=== PATIENT | female | born 1955 | race Caucasian/White ===

== ENCOUNTER 2016-04-24 13:42 | Day surgery (SDC) | payer MEDICARE, BC ==
[2016-03-19 11:26] VITALS: BMI 28.5
[2016-04-24] VITALS (9 sets, daily range): BP systolic 125–198; BP diastolic 39–95; PULSE 80–106; RESP 12–22; Ht 157.5 cm; Wt 68.0 kg
[~2016-04-24] VITALS: Ht 157.5 cm; Wt 68.0 kg
[~2016-04-24 13:42] MED LIST: APR50 PO; ASPI325T4 PO; BIMA2.5D BOTH EYES; CLOP75TA27 PO; HUM100VI14 SC; HYDR-762 PO; NIFE30TA60 PO; OMEP20CA16 PO; SERT50TA6 PO; SIMV40TA2 PO
[2016-04-24] MEDS ORDERED: OMEP40CA6 PO (14:22)
[2016-04-24] MEDS ORDERED: NOVMIX SC (14:23)
[2016-04-24] MEDS ORDERED: POLYMYXIN/BACITRACIN 1L IRRIG ONE (15:35)
[2016-04-24] MEDS ORDERED: BUPIVACAINE 0.5% (SDV) 30 ML INJ ONE (15:35)
[2016-04-24 15:36] LABS: INR 1.05; PROTIME 13.7 Sec (12.2-14.2); PT RATIO 1.1
[2016-04-24 15:39] LABS: BASOPHILS % 0.5 % (0.0-2.0); EOSINOPHILS # 0.1 10^3/ul (0.0-0.5); EOSINOPHILS % 2.4 % (0.0-7.0); HEMATOCRIT 35.6 % (37.0-47.0); HEMOGLOBIN 11.8 g/dl (12.0-16.0); LYMPHOCYTES # 1.1 10^3/ul (0.8-2.9); LYMPHOCYTES % 27.6 % (15.0-51.0); MEAN CORPUSCULAR HEMOGLOBIN 32.2 pg (29.0-33.0); MEAN CORPUSCULAR HGB CONC 33.1 g/dl (32.0-37.0); MEAN CORPUSCULAR VOLUME 97.2 fl (82.0-101.0); MEAN PLATELET VOLUME 7.2 fl (7.4-10.4); MONOCYTE # 0.5 10^3/ul (0.3-0.9); NEUTROPHIL # 2.4 10^3/ul (1.6-7.5); NEUTROPHILS % 58.5 % (39.0-77.0); PLATELET COUNT 207 10^3/UL (140-440); RED BLOOD COUNT 3.67 10^6/ul (4.20-5.40); RED CELL DISTRIBUTION WIDTH 19.7 % (11.5-14.5); UNCORRECTED WBC 4.2 10^3/ul (4.8-10.8); WHITE BLOOD COUNT 4.2 10^3/ul (4.8-10.8)
[2016-04-24 15:52] LABS: CREATININE 3.21 mg/dl (0.44-1.00); POTASSIUM 4.8 mmol/L (3.5-5.1)
[2016-04-24 15:53] LABS: CALCIUM 9.4 mg/dl (8.4-10.2)
--- NOTE | 2016-04-24 15:53 | HPN ---
Date/Time of Note Date/Time of Note DATE: 04/24/16 TIME: 15:53 Interval H&P Admission Note Pt. seen H&P reviewed: No system changes BEV YAÑEZ DPM Apr 24, 2016 15:53
[2016-04-24 15:58] LABS: CONDITION 1; LH ANALYZER COMMENTS 1
[2016-04-24] MEDS ORDERED: FENTAnyl 50 MCG/ML VIAL ONE (16:05)
[2016-04-24 16:06] LABS: PARTIAL THROMBOPLASTIN TIME 69.6 Sec (25.0-35.0)
[2016-04-24] MEDS ORDERED: ETOMIDATE 20 MG INJ ONE (16:12)
[2016-04-24] MEDS ORDERED: LABETALOL HCL 20MG INJ IV PRN (17:30)
[2016-04-24] MEDS ORDERED: DIPHENHYDRAMINE 50 MG INJ IV PRN (17:30)
[2016-04-24] MEDS ORDERED: FENTAnyl 50 MCG/ML VIAL IV PRN (17:30)
[2016-04-24] MEDS ORDERED: hydrALAzine 20 MG INJ IV PRN (17:30)
[2016-04-24] MEDS ORDERED: ONDANSETRON 4 MG INJ IV PRN (17:30)
[2016-04-24] MEDS ORDERED: MIDAZOLAM 1 MG/ML 2 ML INJ ONE (18:53)
[2016-04-24] MEDS ORDERED: ROCURONIUM 50 MG INJ ONE (18:54)
[2016-04-24] MEDS ORDERED: LIDOCAINE 100 MG SYRINGE ONE (18:54)
[2016-04-24] MEDS ORDERED: CEFAZOLIN 1 GM INJ ONE (18:54)
[2016-04-24] MEDS ORDERED: ONDANSETRON 4 MG INJ ONE (18:54)
--- NOTE | 2016-04-24 20:15 | RADRPT ---
AMENDMENT: 04/24/2016 8:17:54 PM Tj Yan MD ADDENDUM: COMPARISON: Left ankle series dated 10/04/2014. PROCEDURE: XR Ankle. CLINICAL INDICATION: Surgical resection of the talus with fixation at the ankle and the hind foot TECHNIQUE: 3 views of the left ankle were performed. COMPARISON: None. FINDINGS: Interval surgical resection of the talus. New pin and cannulated screw fixation traverses the calca neus and tibia. There is a new splint in place. Prior resection of distal left fibula is again seen. IMPRESSION: Intervals with surgical resection of the talus, with new internal metallic fixation. RPTAT: [facility]U Physician Blanca Date Time Electronically viewed and signed by Physician Blanca on 04/24/2016 20:17 RS/
[2016-04-24] MEDS ORDERED: HYDROCODONE/APAP (5/325) TAB ONE ×2 (20:17→20:19)
--- NOTE | 2016-04-24 20:17 | RADRPT ---
PROCEDURE: XR Ankle. CLINICAL INDICATION: Surgical resection of the talus with fixation at the ankle and the hind foot TECHNIQUE: 3 views of the left foot were performed. COMPARISON: Left foot series dated 10/05/2014. FINDINGS: Interval surgical resection of the talus. New pin and cannulated screw fixation traverses the calca neus and tibia. Age indeterminate fracture at the distal second metatarsal metaphysis. This is new over interval si nce 10/04/2014. There is a new splint in place. Prior resection of distal left fibula is again seen. IMPRESSION: Intervals with surgical resection of the talus, with new internal metallic fixation. RPTAT: UU Physician Blanca Date Time Electronically viewed and signed by Physician Blanca on 04/24/2016 20:17 RS/
[2016-04-24] MEDS ORDERED: HYDROCODONE/APAP (5/325) TAB PO ONE (20:30)
--- NOTE | 2016-04-24 23:22 | RADRPT ---
PROCEDURE: Intraoperative imaging of the left ankle with fluoroscopy. CLINICAL INDICATION: Left ankle pain. Intraoperative. TECHNIQUE: Four images of the left ankle were obtained in the operating room with an image intensi fier. No radiologist was in attendance. 47.1 seconds of fluoroscopy time was used. COMPARISON: No prior study is available for comparison. FINDINGS: Images demonstrate surgical instruments overlying the left ankle. IMPRESSION: 1. Intraoperative imaging of the left ankle. RPTAT: QQ .Roberto Carlos Chaudhry MD, MD Date Time Electronically viewed and signed by .Roberto Carlos Chaudhry MD, MD on 04/24/2016 23:21 .R/
--- NOTE | 2016-04-29 06:16 | OPR ---
DATE OF OPERATION: 04/24/2016 SURGEON: Rosas Martinez DPM COMMUNICATIONS DEPARTMENT HEAD SURGEON: Jer Campbell DPM ANESTHESIOLOGIST: Dr. French ANESTHESIA: General. PREOPERATIVE DIAGNOSIS: Painful nonunion left subtalar joint. POSTOPERATIVE DIAGNOSES: 1. Painful nonunion left subtalar joint. 2. Calcaneal valgus, left foot. PROCEDURES PERFORMED: 1. Subtalor joint arthrodesis, left ankle. 2. Mid tarsal osteotomy, left foot. DESCRIPTION OF PROCEDURE: The patient was brought into the operating room, placed in a secure supin e position. Cardiac monitoring and general anesthesia were utilized for this case. A thigh tourniq uet was also placed for hemostasis upon conducting anesthesia, the left foot and ankle were prepped and draped in the usual sterile manner. The thigh tourniquet was inflated to 325 mmHg. Procedure # 1 was then performed, subtalar joint arthrodesis, left ankle. A 5 cm incision was placed from the p osterior fibula extending distally to the calcaneal cuboid joint. The incision was deepened. Super ficial bleeders were cauterized and bovied as necessary. Extensive scar tissue was noted along the incision site. The scar tissue adhesions were freed from the peroneal tendons. Care was taken to p reserve and protect the sural nerve which was identified. The peroneal tendons were retracted poste riorly and plantarly. The rongeur was used to remove the extensive scar tissue along the posterior facet of the subtalar joint. Once the subtalar joint was identified, a Rhodell elevator with Hloden elev ator were utilized to open the subtalar joint which was found to have considerable motion. The subt alar joint was rongeured with necrotic and fibrinous tissue within the posterior and middle facets o f the subtalar joint. Curettage was also utilized to remove sclerotic bone. At this point, a sagit melani saw was utilized to debride the subglottic bone down to good healthy bleeding bone. The opposin g edges of the subtalar joint were reapproximated under intraoperative fluoroscopy using 0.062 K-wir es, satisfactory position and alignment were noted. A 5.0 x 80 mm cannulated headless screw was uti lized under guided intra fluoroscopy. A second point of fixation was also placed from plantar calca neus superiorly through the talus. Second screw measured to be 5.0 x 85 mm Stella cannulated headl ess screw. A third point of fixation was also utilized from the tibia superiorly, medially, and goi ng plantarly direction through the talus. The screw measured 38 x 5.0 mm cannulated [place] screw. Additional fixation was appropriate to reduce motion and add stability where a Steinmann pin was ut ilized from the plantar calcaneus superiorly through the tibia. AP, lateral ankle views revealed sa tisfactory position and alignment of the subtalar joint. Next, the heel valgus position was correct ed with osteotomy through the calcaneal cuboid and talonavicular joints. The cartilaginous surfaces were denuded, and the hindfoot was brought into a rectus position and the Steinmann pin was utilize d to maintain this rectus position of the hindfoot with a slight valgus position of approximately 2 degrees. Satisfactory alignment again was noted with the intraoperative fluoroscopy. The thigh pne umatic tourniquet was deflated at this point. All bleeders were cauterized and bovied. The lateral incision was closed with 3-0 Vicryl simple interrupted sutures along with 4-0 Vicryl simple interru pted sutures. The subcutaneous tissue was closed with 4-0 Vicryl simple interrupted sutures. The s kin edges were reapproximated with 4-0 nylon horizontal mattress stitches. The patient tolerated th e above procedure well. A below-knee fiberglass cast was applied intraoperatively. The patient lef t the OR without complications. The patient will follow up to the office in 1 week postoperatively. Dictated By: ROSAS TAVERAS Conf#: [id number] DID#: [id number]
== END 2016-04-24 20:41 | disposition home or self-care (01) ==
LOC: SDS 13:42
PROVIDERS: ATTEND Podiatrist Primary Podiatric Medicine
DX: T84.119A Breakdown (mechanical) of internal fixation device of unspecified bone of limb, initial encounter (principal); Y79.3 Surgical instruments, materials and orthopedic devices (including sutures) associated with adverse incidents; Y92.009 Unspecified place in unspecified non-institutional (private) residence as the place of occurrence of the external cause; Z87.891 Personal history of nicotine dependence; I12.0 Hypertensive chronic kidney disease with stage 5 chronic kidney disease or end stage renal disease; E11.22 Type 2 diabetes mellitus with diabetic chronic kidney disease; N18.6 End stage renal disease; Z99.2 Dependence on renal dialysis; E78.5 Hyperlipidemia, unspecified; M21.072 Valgus deformity, not elsewhere classified, left ankle; M25.372 Other instability, left ankle
CPT/HCPCS: 28304; 28725; 73600; 73610; 73630; 80048; 82962; 83036; 85025; 85610; 85730; J2001; J2250; J2405; J3010; J0360; J0690

== ENCOUNTER 2016-07-24 18:33 | Inpatient (IN) | payer MEDICARE, BC ==
[~2016-07-24] VITALS: Ht 152.4 cm; Wt 73.8 kg
[~2016-07-24 18:33] MED LIST changes: -APR50 PO; -BIMA2.5D BOTH EYES; -HUM100VI14 SC; -HYDR-762 PO; +NOVMIX SC; -OMEP20CA16 PO; +OMEP40CA6 PO
--- NOTE | 2016-07-24 21:23 | ERA ---
ER Documentation Chief Complaint Date/Time DATE: 07/24/16 TIME: 21:23 Chief Complaint diabetic left foot HPI 61-year-old female with history of diabetes mellitus type 2, end-stage renal disease on dialysis M/W/F, coronary artery disease status post CABG, CVA, status post left foot subtalar arthrodesis and midtarsal osteotomy referred to the ED by Dr. Martinez for evaluation of increasing moderate, pressure-like and crampy, nonradiating pain with swelling, redness and discharge to the left foot. Denies chest pain or palpitation. No abdominal pain, nausea or vomiting. No headache or neck pain. Denies fevers, chills, anorexia or night sweats. ROS All systems reviewed and are negative except as per history of present illness. Medications Home Meds Reported Medications Insulin Aspart (Novolog Mix (70/30)) 100 Units/Ml Soln, 0 SC BID , VIAL 10 UNITS QAM, 6 UNITS QPM 04/24/16 Omeprazole* (Omeprazole*) 40 Mg Capsule.dr, 40 MG PO DAILY, #30 CAP 04/24/16 Nifedipine* (Nifedipine ER*) 30 Mg Tablet.sa, 30 MG PO BID, TAB.SA 06/10/15 Clopidogrel Bisulfate (Clopidogrel) 75 Mg Tablet, 75 MG PO DAILY 09/21/12 Aspirin* (Aspirin*) 325 Mg Tablet, 325 MG PO DAILY 06/12/11 Simvastatin* (Zocor*) 40 Mg Tablet, 40 MG PO QHS 10/04/10 Discontinued Reported Medications Sertraline Hcl* (Sertraline Hcl*) 50 Mg Tablet, 50 MG PO QAM, TAB 08/09/14 Allergies Allergies: Coded Allergies: morphine (Verified Allergy, Intermediate, 07/24/16) PMhx/Soc Reviewed History of Surgery: Yes (LT AND RT PERMACATH, LT AV-SHUNT, LT LEG SX, ) Anesthesia Reaction: No Hx Neurological Disorder: Yes (S/P STROKE) Hx Respiratory Disorders: No Hx Cardiac Disorders: Yes (CABG) Hx Psychiatric Problems: No Hx Miscellaneous Medical Probl: Yes (CRF IN HD) Hx Alcohol Use: No Hx Substance Use: No Hx Tobacco Use: No FmHx No stroke or cancer. Not relevant to presenting complaint. Physical Exam Vitals Vital Signs Date Time Temp Pulse Resp B/P Pulse Ox O2 Delivery O2 Flow Rate FiO2 5/4/17 06:52 71 22 185/82 97 Room Air 07/25/16 05:45 64 21 196/67 97 Room Air 07/25/16 04:24 98.5 70 21 195/72 100 Room Air 07/25/16 00:32 70 23 158/56 96 Room Air 07/24/16 22:34 78 15 188/86 100 Room Air 07/24/16 21:15 99.7 77 15 189/70 100 Room Air 07/24/16 18:40 97.8 76 20 199/117 98 Physical Exam Const: Alert, moderate distress due to pain Head: Atraumatic Eyes: Normal Conjunctiva ENT: Normal External Ears, Nose and Mouth. Neck: Full range of motion. Nontender. No JVD. Resp: Clear to auscultation bilaterally Cardio: Regular rate and rhythm, no murmurs Chest Wall: Rusty catheter left chest wall without erythema, induration or drainage. Abd: Soft, non tender, non distended. Normal bowel sounds Skin: No petechiae or rashes Back: No midline or flank tenderness Ext: Left foot: Dorsal erythema, hematoma and tenderness. No subcutaneous crepitus. Neur: Awake and alert, Left sided weakness at baseline. Psych: Normal Mood and Affect Result Diagram: 07/24/16212907/24/162129 Results 24 hrs Laboratory Tests Test 07/24/16 21:30 White Blood Count 4.710^3/ul Red Blood Count 2.7110^6/ul Hemoglobin 9.2g/dl Hematocrit 28.8% Mean Corpuscular Volume 106.3fl Mean Corpuscular Hemoglobin 33.9pg Mean Corpuscular Hemoglobin Concent 31.9g/dl Red Cell Distribution Width 12.7% Platelet Count 42678^3/UL Mean Platelet Volume 9.5fl Neutrophils % 73.0% Band Neutrophils % 2.0% Lymphocytes % 11.0% Monocytes % 9.0% Eosinophils % 5.0% Erythrocyte Sedimentation Rate 110mm/Hr Sodium Level 131mmol/L Potassium Level 4.2mmol/L Chloride Level 92mmol/L Carbon Dioxide Level 30mmol/L Anion Gap 13 Blood Urea Nitrogen 29mg/dl Creatinine 3.14mg/dl Glucose Level 262mg/dl Calcium Level 8.9mg/dl Total Bilirubin 0.0mg/dl Direct Bilirubin 0.00mg/dl Indirect Bilirubin 0.0mg/dl Aspartate Amino Transf (AST/SGOT) 22IU/L Alanine Aminotransferase (ALT/SGPT) 30IU/L Alkaline Phosphatase 134IU/L Total Protein 7.6g/dl Albumin 3.5g/dl Globulin 4.10g/dl Albumin/Globulin Ratio 0.85 Current Medications Medications (Trade) Dose Ordered Sig/Maricruz Route PRN Reason Start Time Stop Time Status Last Admin Dose Admin Piperacillin Sod/ Tazobactam Sod 100 ml @ 200 mls/hr ONCE ONCE IVPB 07/24/16 21:30 07/24/16 21:59 DC 07/24/16 21:49 Vancomycin HCl (Vancocin) 250 ml @ 125 mls/hr ONCE IVPB 07/24/16 21:30 07/24/16 23:29 DC 07/24/16 22:30 Ascorbic Acid (Vitamin C) 1,000 mg ONCE ONCE PO 07/24/16 21:30 07/24/16 21:34 DC 07/24/16 22:15 Acetaminophen/ Hydrocodone Bitart ([place] (5/325)) 1 tab ONCE ONCE PO 07/24/16 21:30 07/24/16 21:35 DC Ondansetron HCl (Zofran Inj) 4 mg ONCE STAT IV 07/24/16 21:32 07/24/16 21:34 DC Ondansetron HCl (Zofran Inj) 4 mg BRIDGE ORDER PRN IV NAUSEA AND/OR VOMITING 07/25/16 00:00 07/25/16 23:59 Acetaminophen (Tylenol Tab) 650 mg ER BRIDGE PRN PO MILD PAIN/FEVER 07/25/16 00:00 07/25/16 23:59 Procedures/MDM DOCUMENTS REVIEWED: ED nurse[, EMS, [facility] care, Prior ED, Prior records, Dialysis, Clinic notes, Physician referral] ED COURSE: [place]. IV Zosyn and vancomycin after cultures. MEDICAL DECISION MAKIN-year-old female with history of diabetes mellitus type 2, end-stage renal disease on dialysis M/W/F, coronary artery disease status post CABG, CVA, status post left foot subtalar arthrodesis and midtarsal osteotomy referred to the ED by Dr. Martinez for evaluation pain and swelling to left foot. Patient presents with postop, diabetic foot infection. Possible osteomyelitis. Patient seen in the ED by podiatry, Dr. Campbell. Abscess/ hematoma drained and dressing applied. IV antibiotics given after cultures. Hyperglycemia without DKA or HONK. No hyperkalemia or volume overload. No criteria for systemic inflammatory response syndrome or sepsis. Patient will be admitted to [facility] for further intravenous antibiotics, evaluation and management. Counseled patient and family regarding diagnosis, diagnostic results and plan for admission. CALLS/CONSULTS: Dr. Campbell, Recommends intravenous antibiotics and admission to Dr. Sheth CALLS/CONSULTS: Dr. Sheth. PATIENT CARE TRANSITIONED: Time: 23:40, Dr. Sheth. Departure Diagnosis: Primary Impression: Left foot infection Additional Impressions: Hyperglycemia due to type 2 diabetes mellitus Qualified Code: E11.65 - Type 2 diabetes mellitus with hyperglycemia, unspecified intermediate designer insulin use status End stage renal disease on dialysis Coronary artery disease Qualified Code: I25.10 - Coronary artery disease involving [place] heart without angina pectoris, unspecified vessel or lesion type History of coronary artery bypass graft Condition: Serious EDDY MCCRARY MD July 24, 2016 21:23
[2016-07-24] MEDS ORDERED: VANCOMYCIN 1 GM (PMX) 250 ML IVPB SCH (21:30)
[2016-07-24] MEDS ORDERED: HYDROCODONE/APAP (5/325) TAB PO ONE (21:30)
[2016-07-24] MEDS ORDERED: PIPER-TAZO 3.375 GM IV (PMX) 100 ML IVPB ONE (21:30)
[2016-07-24] MEDS ORDERED: ASCORBIC ACID 500 MG TAB PO ONE (21:30)
[2016-07-24] MEDS ORDERED: ONDANSETRON 4 MG INJ IV STA (21:32)
[2016-07-24 21:49] LABS: ADD SCAN DIFF NO
[2016-07-24 21:53] LABS: ABNORMAL IP MESSAGE 1; HEMATOCRIT 28.8 % (37.0-47.0); HEMOGLOBIN 9.2 g/dl (12.0-16.0); MEAN CORPUSCULAR HEMOGLOBIN 33.9 pg (29.0-33.0); MEAN CORPUSCULAR HGB CONC 31.9 g/dl (32.0-37.0); MEAN CORPUSCULAR VOLUME 106.3 fl (82.0-101.0); MEAN PLATELET VOLUME 9.5 fl (7.4-10.4); PLATELET COUNT 255 10^3/UL (140-415); RED BLOOD COUNT 2.71 10^6/ul (4.20-5.40); RED CELL DISTRIBUTION WIDTH 12.7 % (11.5-14.5); WHITE BLOOD COUNT 4.7 10^3/ul (4.8-10.8)
[2016-07-24 22:18] LABS: ALBUMIN 3.5 g/dl (3.3-4.9); ALBUMIN/GLOBULIN RATIO 0.85; CALCIUM 8.9 mg/dl (8.4-10.2); CREATININE 3.14 mg/dl (0.44-1.00); POTASSIUM 4.2 mmol/L (3.5-5.1); TOTAL PROTEIN 7.6 g/dl (6.1-8.1)
--- NOTE | 2016-07-24 22:50 | RADRPT ---
PROCEDURE: XR Foot. CLINICAL INDICATION: Left foot pain TECHNIQUE: 2 views of the left foot are available for review. COMPARISON: Left foot x-ray dated 04/24/2016 FINDINGS: Surgical resection of the talar bone is identified. Left ankle surgical arthrodesis has been perfor med with multiple pins and cannulated screws in place traversing the distal tibia and the calcaneal bone. Diffuse bony demineralization is seen. Disorganization and chronic change of the left ankle j oint is identified. Poor fusion at the surgical arthrodesis site is seen. Increased lucency at the a rthrodesis site is present. Therefore, underlying infection may be present. Surrounding soft tissue cast is seen around the left foot. This limits optimum evaluation of the underlying osseous struct ures. Underlying infection is difficult to exclude on the basis of this study. The appearances are similar when compared to the prior study. IMPRESSION: 1. Status post previous talar bone resection. 2. Status post left ankle surgical arthrodesis multiple pins and a cannulated screws in place. Andres earances are grossly stable over time. 3. Disorganization and chronic change of the left ankle region is identified with poor fusion of th e surgical arthrodesis and increased lucency. Infection may be present and is a definite considerat ion. 4. Diffuse bony demineralization of the osseous structures of the left foot, worse since the previo us study. 5. Surrounding soft tissue cast which limits optimum evaluation of the left foot on the AP view. RPTAT: PP .Chris Kent MD, Date Time Electronically viewed and signed by .Chris Kent MD, on 07/24/2016 22:50 .B/
--- NOTE | 2016-07-24 22:51 | RADRPT ---
PROCEDURE: XR Ankle. CLINICAL INDICATION: Foot infection. TECHNIQUE: Three views of the left ankle. COMPARISON: 04/24/2016 FINDINGS: Splint material obscures fine osseous details. The patient is status post distal fibular osteotomy, removal of the talus, and fusion of the tibia and calcaneus utilizing a pin and three screws. Ther e is an irregular appearance of the distal tibia and superior calcaneus, not significantly changed. Old screw tracks are seen in the distal tibia. IMPRESSION: 1. Status post distal fibular osteotomy, removal of the talus, and fusion of the tibia and calcaneu s. 2. Irregular appearance of the distal tibia and superior calcaneus, not significantly changed. Ost eomyelitis cannot be excluded in these regions. RPTAT: HTAR .Eliseo Weldon MD, Date Time Electronically viewed and signed by .Eliseo Weldon MD, on 07/24/2016 22:50 .R/
--- NOTE | 2016-07-25 03:25 | CONS ---
DATE OF ADMISSION: 07/24/2016 DATE OF CONSULTATION: 07/24/2016 CHIEF COMPLAINT: Left ankle pain, swelling and cellulitis. REFERRING PHYSICIAN: Dr. Rosas Martinez. HISTORY OF PRESENT ILLNESS: This is a 61-year-old female seen in the clinic with an infection from left ankle. She has a draining wound on the anterior ankle, relates pain and currently afebrile. T he patient had surgery of the left ankle on 04/24/2016. The patient had cultures obtained but resul ts are not available for review. The patient has history of Charcot deformity and diabetes with per ipheral neuropathy. PAST MEDICAL HISTORY: Includes diabetes type 2, history of tobacco use, hypertension, GERD, hyperli pidemia, coronary artery disease. PAST SURGICAL HISTORY: Fistula of left arm, dialysis access right upper chest, open heart surgery, CABG, multiple left AV fistula graft with thrombosis. SOCIAL HISTORY: History of tobacco use 15 years, 2 packs per day, stopped in 1984. FAMILY HISTORY: Positive for hypertension and diabetes. PHYSICAL EXAMINATION: VITAL SIGNS: Temperature 97.8, pulse 76, respiratory rate 20, blood pressure 199/72, pulse ox is 98 %. GENERAL: Mild anxiety due to pain. HEAD: Head is normocephalic, atraumatic. LUNGS: Regular respiration. EXTREMITIES: Left ankle with a posterior splint. Dressings removed. There is mild to moderate vilma ma. There is ulceration at the anterior ankle measuring 3 x 1 cm, mild serous drainage. The anteri or medial ankle there is a small puncture wound and there is sanguineous exudate draining from this area. There is pain with palpation. There is mild tibiotalar motion present. No signs of decubitu s pressure sore. Patient with warm foot and ankle. There is 2+ DP pulse, 2+ popliteal pulse. Cell ulitis present to the anterior medial lower leg. IMAGING STUDIES: Radiographs pending. LABORATORY DATA: Pending. ASSESSMENT: 1. Left ankle cellulitis. 2. Hematoma 3. Charcot with prior tibiotalar arthrodesis. 4. Diabetes with neuropathy. PLAN: The patient is seen and evaluated discussed with Dr. Coyne. Plan admission. The patient w ill be initiated on vancomycin and Zosyn. We will need surgical incision and drainage. Consultatio n with Dr. Carrion. He has been notified and the patient was wrapped and placed in a posterior splin t, nonweightbearing. X-rays and labs pending. We will coordinate with the operating room for janee ceballos of surgery. Recommend tight glycemic control in the interim, may require dialysis either tomorrow or Friday. Dictated By: MALIK JIMENEZ/LUZ Conf#: [id number] DID#: [id number]
--- NOTE | 2016-07-25 12:29 | CONS ---
DATE OF ADMISSION: 07/24/2016 DATE OF CONSULTATION: 07/25/2016 INFECTIOUS DISEASE CONSULTATION. REASON FOR CONSULTATION: Antibiotic management. HISTORY OF PRESENT ILLNESS: Emily Ferrari is a 61-year-old female who comes in with left ankl e pain, swelling and cellulitis. The patient's problems include: 1. Adult-onset diabetes mellitus. 2. Hypertension. 3. GERD. 4. Hyperlipidemia. 5. Coronary artery disease. 6. End-stage renal disease. 7. Fistula of left arm; dialysis access right upper chest, also multiple left AV fistula grafts wi th thrombosis. 8. Coronary artery bypass graft. 9. History of tobacco use 15 years, 2 packs per day, stopped in 1984. 10. On admission, her white count is 4.7, H and H 9.2 and 28.8, platelet count 255,000. BUN and cr eatinine are 29/3.14. X-ray of the foot shows status post previous talar bone resection. 11. Status post left ankle surgical arthrodesis multiple pins and cannulated screw in place. Appea rances are grossly stable over time. Disorganization and chronic changes of left ankle region is i dentified with poor fusion at the surgical arthrodesis and increased lucency. Infection may be pres ent. There was a definite consideration. 12. Diffuse bony demineralization of the osseous structures of the left foot, worse than previous s tudy. Surrounding soft tissue cast, which limits optimal evaluation of the left foot. PAST MEDICAL HISTORY: Operations as outlined. FAMILY HISTORY: Noncontributory. Positive for hypertension, diabetes. SOCIAL HISTORY: She has a history of 15 years of tobacco use, 2 packs a day, stopped in 1984. ALLERGIES: NONE TO PENICILLIN, SULFA OR FOODS. MEDICATIONS: Per chart. REVIEW OF SYSTEMS: As per HPI. PHYSICAL EXAMINATION: GENERAL: The patient is a well-developed, well-nourished female with mild anxiety due to pain, in n o acute distress. VITAL SIGNS: Stable. She is afebrile. SKIN: Without generalized rash. HEENT: Within normal limits. NECK: Supple. LYMPH NODES: None palpable. CHEST: Decreased breath sounds at the bases. HEART: Without murmur or gallop. ABDOMEN: Soft, nontender, without organosplenomegaly or masses. EXTREMITIES: She has a posterior splint. She has mild to moderate edema. She has ulceration at th e anterior ankle, measuring about 1 cm, mild serous drainage. The anterior medial ankle has a punct ure wound. There is bloody exudate dripping from this area. There is pain on palpation. No decub itus ulcer and the foot is warm. Pulses are 2+. RECTAL AND GENITAL: Deferred. NEUROLOGIC: No focal neurological abnormality. IMPRESSION AND PLAN: The patient has left ankle cellulitis. She also has a Charcot joint with tibi otalar arthrodesis and diabetes with neuropathy. She is being followed by Dr. Chandu Campbell, podiatry , and she was started on vancomycin and Zosyn. She will need surgical incision and drainage. I lalo l dictate my findings to Dr. Campbell. Dictated By: SONIA HUGHES MD, JD/LUZ Conf#: [id number] DID#: [id number]
[2016-07-25] MEDS ORDERED: ZOLPIDEM 5 MG TAB PO PRN (15:00)
[2016-07-25] MEDS ORDERED: DOCUSATE SODIUM 100 MG CAP PO PRN (15:00)
[2016-07-25] MEDS ORDERED: ONDANSETRON 4 MG INJ IV PRN ×2 (15:00)
[2016-07-25] MEDS ORDERED: NACL 0.9% 3 ML SYG IV SCH (15:00)
[2016-07-25] MEDS ORDERED: MAGNESIUM HYDROXIDE 30ML CUP PO PRN (15:00)
[2016-07-25] MEDS ORDERED: ACETAMINOPHEN 325 MG TAB PO PRN ×2 (15:00)
--- NOTE | 2016-07-25 15:38 | HP ---
DATE OF ADMISSION: 07/24/2016 CHIEF COMPLAINT AND HISTORY OF PRESENT ILLNESS: The patient is a 61-year-old female who has history of diabetes mellitus type 2 for 10+ years with end-stage renal disease on hemodialysis Friday, Friday and Friday, prior history of coronary artery disease, status post coronary artery bypass surgery, prior history of CVA, status post left foot subtalar arthrodesis and metatarsal osteotomy who presents with increasing pain, swelling and discharge from the left foot and patient was evaluated in the emergency room and was admitted for evaluation and treatment of left ankle cellulitis. REVIEW OF SYSTEMS: The patient is unable to provide any cogent history at this time. SOCIAL HISTORY: The patient has had prior history of smoking 2 packs a day for at least 15 years. MEDICATIONS: Include: 1. NovoLog mix 70/30 10 units q.a.m., 6 units q.p.m. 2. Omeprazole 40 mg daily. 3. Nifedipine ER 30 mg daily. 4. Clopidogrel 75 mg daily. 5. Aspirin 325 mg p.o. daily. 6. Simvastatin 40 mg p.o. daily. ALLERGIES: MORPHINE. PRIOR SURGERIES: Include status post AV shunt and PermCath placement. There is also history of having had a prior stroke. FAMILY HISTORY: Negative for diabetes, hypertension or cancer. PHYSICAL EXAMINATION: GENERAL: Patient is an average-built female who is awake, alert. VITAL SIGNS: Blood pressure 185/82, respiratory 20 per minute, O2 sats 97%, temperature 98.5. HEENT: Head normocephalic. Moderate pallor without cyanosis. Tongue is coated , dry. NECK: Supple. No thyromegaly, bruits or lymphadenopathy. LUNGS: Clinically clear. HEART: S1, S2 heard with no definite gallops or murmurs. ABDOMEN: Soft, nontender, no hepatosplenomegaly. EXTREMITIES: Moderate edema, left foot which is wrapped. Podiatry evaluation has been done by Dr. Martinez and Dr. Campbell. PELVIC, RECTAL AND BREAST: Deferred at the patient's request. RECTAL AND BREAST: Deferred at patient's request. LABORATORY DATA: Initial WBC count 4.7, hematocrit 28.8, MCV 106.3. Sed rate 110. Sodium 131, potassium 4.2, BUN 29, creatinine 3.14, glucose 262. IMPRESSION: 1. Cellulitis, left ankle, status post tibiotalar arthrodesis, osteomyelitis to be ruled out. 2. Type 2 diabetes mellitus. 3. Hypertension. 4. Hyperlipidemia. 5. Coronary artery disease, status post coronary artery bypass surgery. 6. End-stage renal disease. PLAN: The patient will be admitted to the medical floor. She will be started on vancomycin and Zosyn and will follow recommendations per Dr. 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 Strict control of blood glucose levels. Continue statins, podiatry recommendations per Dr. Campbell and Dr. Martinez. Dictated By: RENE ALBERTS MD SR/NTS Conf#: [id number] DID#: [id number]
[2016-07-25 16:51] LABS: ADD SCAN DIFF NO
[2016-07-25 16:53] LABS: ABNORMAL IP MESSAGE 1; BASOPHILS % 0.4 % (0.0-2.0); EOSINOPHILS # 0.3 10^3/ul (0.0-0.5); EOSINOPHILS % 7.3 % (0.0-7.0); HEMATOCRIT 29.3 % (37.0-47.0); HEMOGLOBIN 9.3 g/dl (12.0-16.0); LYMPHOCYTES # 0.5 10^3/ul (0.8-2.9); LYMPHOCYTES % 10.4 % (15.0-51.0); MEAN CORPUSCULAR HEMOGLOBIN 34.1 pg (29.0-33.0); MEAN CORPUSCULAR HGB CONC 31.7 g/dl (32.0-37.0); MEAN CORPUSCULAR VOLUME 107.3 fl (82.0-101.0); MEAN PLATELET VOLUME 9.3 fl (7.4-10.4); MONOCYTE # 0.4 10^3/ul (0.3-0.9); NEUTROPHIL # 3.2 10^3/ul (1.6-7.5); PLATELET COUNT 257 10^3/UL (140-415); RED BLOOD COUNT 2.73 10^6/ul (4.20-5.40); WHITE BLOOD COUNT 4.6 10^3/ul (4.8-10.8)
[2016-07-25 17:07] LABS: POTASSIUM 3.6 mmol/L (3.5-5.1)
[2016-07-25 17:10] LABS: CALCIUM 8.1 mg/dl (8.4-10.2); CREATININE 3.52 mg/dl (0.44-1.00)
[2016-07-25] MEDS ORDERED: DEXTROSE 50% 50 ML SYRINGE IV PRN ×2 (19:30)
[2016-07-25] MEDS ORDERED: GLUCOSE GEL 15 GRAM TUBE PO PRN ×2 (19:30)
[2016-07-25] MEDS ORDERED: GLUCOSE GEL 15 GRAM TUBE BUCCAL PRN (19:30)
[2016-07-25] MEDS ORDERED: GLUCAGON 1 MG INJ IM PRN (19:30)
[2016-07-25 20:14] VITALS: TEMP 98.9
[2016-07-25] MEDS: INSULIN ASPART [NOVOLOG] 3 ML PEN SC SCH (20:27)
[2016-07-25] MEDS ORDERED: NICARDipine HCL 30 MG CAPSULE PO ONE (22:00)
[2016-07-25] MEDS ORDERED: hydrALAzine 20 MG INJ IV ONE (22:00)
[2016-07-25] MEDS: PIPER-TAZO 2.25 GM (PMX) 50 ML IVPB SCH (22:48)
[2016-07-26] VITALS (19 sets, daily range): BP systolic 99–201; BP diastolic 4–94; PULSE 61–77; RESP 20; Ht 152.4 cm; Wt 73.8 kg
[2016-07-26] MEDS: PANTOPRAZOLE (EC) 40 MG TAB PO SCH (06:53)
[2016-07-26] MEDS: INSULIN ASPART [NOVOLOG] 3 ML PEN SC SCH ×4 (08:00→20:30)
[2016-07-26 08:20] LABS: T3 UPTAKE 48.2 % (23.5-40.5)
[2016-07-26 08:22] LABS: MAGNESIUM 2.1 mg/dl (1.7-2.5); PHOSPHORUS 5.8 mg/dl (2.5-4.9)
[2016-07-26 08:33] LABS: THYROID STIMULATING HORMONE 9.52 MIU/L (0.465-4.680)
[2016-07-26] MEDS: PIPER-TAZO 2.25 GM (PMX) 50 ML IVPB SCH ×3 (09:08→23:50)
[2016-07-26] MEDS: CLOPIDOGREL 75 MG TAB PO SCH (09:08)
[2016-07-26] MEDS: ASPIRIN (EC) 325 MG TAB PO SCH (09:08)
[2016-07-26] MEDS: AMLODIPINE 5 MG TAB PO SCH (09:09)
--- NOTE | 2016-07-26 14:10 | CONS ---
Date/Time of Note Date/Time of Note DATE: 07/26/16 TIME: 14:09 Assessment/Plan Assessment/Plan Chief Complaint/Hosp Course [id number] RENAL A/P FOOT WOUND ESRD HTN DM ANEMIA CAD PLAN HD Problems: Consultation Date/Type/Reason Admit Date/Time July 24, 2016 at 23:33 Initial Consult Date Type of Consultation: RENAL Exam/Review of Systems Vital Signs Vitals Vital Signs Date Time Temp Pulse Resp B/P Pulse Ox O2 Delivery O2 Flow Rate FiO2 07/26/16 12:37 68 07/26/16 11:59 97.9 20 191/82 94 07/26/16 08:00 Nasal Cannula 2.0 Exam Cardiovascular: regular rate and rhythm Gastrointestinal: soft Musculoskeletal: nl extremities to inspection Results Result Diagram: 07/25/16 1530 07/25/16 1530 Results 24 hrs Laboratory Tests Test 07/25/16 15:30 07/25/16 20:26 07/26/16 06:25 07/26/16 08:03 White Blood Count 4.6 L Red Blood Count 2.73 L Hemoglobin 9.3 L Hematocrit 29.3 L Mean Corpuscular Volume 107.3 H Mean Corpuscular Hemoglobin 34.1 H Mean Corpuscular Hemoglobin Concent 31.7 L Red Cell Distribution Width 13.0 Platelet Count 257 Mean Platelet Volume 9.3 Neutrophils % 70.0 Lymphocytes % 10.4 L Monocytes % 8.0 Eosinophils % 7.3 H Basophils % 0.4 Nucleated Red Blood Cells % 0.0 Neutrophils # 3.2 Lymphocytes # 0.5 L Monocytes # 0.4 Eosinophils # 0.3 Basophils # 0.0 Nucleated Red Blood Cells # 0.0 Sodium Level 136 Potassium Level 3.6 Chloride Level 99 Carbon Dioxide Level 25 Anion Gap 16 Blood Urea Nitrogen 38 H Creatinine 3.52 H Glucose Level 106 # Calcium Level 8.1 L Bedside Glucose 170 138 Hemoglobin A1c 5.6 Phosphorus Level 5.8 H Magnesium Level 2.1 Thyroid Stimulating Hormone (TSH) 9.520 H Free Thyroxine Index 1.78 Thyroxine (T4) 3.7 L Triiodothyronine (T3) Uptake 48.2 H Test 07/26/16 11:41 Bedside Glucose 158 Medications Medications Current Medications Ondansetron HCl (Zofran Inj) 4 mg Q6H PRN IV NAUSEA AND/OR VOMITING; Start 07/25 at 15:00 Acetaminophen (Tylenol Tab) 650 mg Q6H PRN PO PAIN LEVEL 1-3 OR FEVER; Start at 15:00 Acetaminophen/ Hydrocodone Bitart ([place] (5/325)) 1 tab Q6H PRN PO MODERATE PAIN LEVEL 4-6; Start 07/25/16 at 15:00 Docusate Sodium (Colace) 100 mg Q12H PRN PO CONSTIPATION; Start 07/25/16 at 15: 00 Magnesium Hydroxide (Milk Of Mag) 30 ml DAILY PRN PO CONSTIPATION; Start at 15:00 Zolpidem Tartrate (Ambien) 5 mg QHS PRN PO SLEEP; Start 07/25/16 at 15:00 Pantoprazole 40 mg 40 mg DAILY@06 PO Last administered on 07/26/16 06:53; Admin Dose 40 MG; Start 07/26/16 at 06:00 Piperacillin Sod/ Tazobactam Sod (Zosyn 2.25gm/ 50ml (Pmx)) 50 ml @ 100 mls/hr Q8 IVPB Last administered on 07/26/16 09:08; Admin Dose 100 MLS/HR; Start at 22:00 Miscellaneous Information 1 ea NOTE XX ; Start 07/25/16 at 19:30 Glucose (Glutose) 15 gm Q15M PRN PO DECREASED GLUCOSE; Start 07/25/16 at 19:30 Glucose (Glutose) 22.5 gm Q15M PRN PO DECREASED GLUCOSE; Start 07/25/16 at 19:30 Dextrose (D50w Syringe) 25 ml Q15M PRN IV DECREASED GLUCOSE; Start 07/25/16 at 19:30 Dextrose (D50w Syringe) 50 ml Q15M PRN IV DECREASED GLUCOSE; Start 07/25/16 at 19:30 Glucagon (Glucagen) 1 mg Q15M PRN IM DECREASED GLUCOSE; Start 07/25/16 at 19:30 Glucose (Glutose) 15 gm Q15M PRN BUCCAL DECREASED GLUCOSE; Start 07/25/16 at 19: 30 Clonidine (Catapres) 0.1 mg Q4H PRN PO ELEVATED BLOOD PRESSURE Last administered on 07/26/16 04:38; Admin Dose 0.1 MG; Start 07/25/16 at 21:00 Amlodipine Besylate (Norvasc) 5 mg DAILY PO Last administered on 07/26/16 09:09 ; Admin Dose 5 MG; Start 07/26/16 at 09:00 Aspirin (Ecotrin) 325 mg DAILY PO Last administered on 07/26/16 09:08; Admin Dose 325 MG; Start 07/26/16 at 09:00 Clopidogrel Bisulfate (plaVIX) 75 mg DAILY PO Last administered on 07/26/16 09: 08; Admin Dose 75 MG; Start 07/26/16 at 09:00 Atorvastatin Calcium (Lipitor) 20 mg HS PO ; Start 07/26/16 at 21:00 RC OLIVA MD July 26, 2016 14:10
--- NOTE | 2016-07-26 15:35 | CONS ---
DATE OF ADMISSION: 07/24/2016 DATE OF CONSULTATION: TYPE OF CONSULTATION: Nephrology. Thank you, Dr. Sheth, for kindly asking me to see the patient in consultation. The patient is well known to me, with a history of ESRD, hypertension and diabetes mellitus. The fransisca barboza has had multiple admissions to [facility], dialysis related and foot related . The patient recently was at [facility] and underwent coronary angiogram by Dr. Garcia and Dr. Jimmie Saravia and the patient was told to be on medical management. The patient now presents to this hospital with complaints of discharge from the left foot. The patient had a c ast on it and she is being admitted for further management. WBC 4.7, hematocrit 28.8, platelet coun t of 255. The patient's hematocrit is 29.3, ESR 110. The patient's potassium of 3.6. The patient goes to [facility] on Friday, Friday, Friday. PAST MEDICAL HISTORY: Please review the old chart for a detailed history. Briefly, a history of: 1. Left ankle fracture. 2. Hypertension. 3. Diabetes mellitus. 4. GERD. 5. Dyslipidemia. 6. Anemia. 7. End-stage renal disease. 8. The patient has a history of CAD. 9. Atherosclerotic heart disease. 10. The patient also has a history of PVD. 11. History of coronary artery bypass graft. 12. Patient had a Lexiscan done in the past. 13. Also angiogram done in the past. ALLERGY HISTORY: MORPHINE. SOCIAL HISTORY: Negative. FAMILY HISTORY: Noncontributory. HOME MEDICATIONS: 1. Aspirin. 2. Plavix. 3. Insulin 4. Nifedipine. 5. Omeprazole. 6. Simvastatin. REVIEW OF SYSTEMS: HEENT: Unremarkable, except for diabetic retinopathy. RESPIRATORY: No shortness of breath. CARDIOVASCULAR: No chest pains or palpitations. ABDOMEN: Unremarkable. EXTREMITIES: swelling. PHYSICAL EXAMINATION: GENERAL: The patient is an obese, overweight female, awake and alert. VITAL SIGNS: Pulse 64, blood pressure 191/82. HEAD: Atraumatic, normocephalic. Pupils are equal and reactive to light. The patient has pale con junctivae. No icterus. NECK: Supple. LUNGS: Clear. CARDIOVASCULAR: S1, S2 normal. A systolic murmur noted. ABDOMEN: Soft, obese. Bowel sounds positive. No palpable mass or hepatosplenomegaly. No guarding or rebound tenderness. EXTREMITIES: No cyanosis or clubbing. Edema positive. The patient has a left lower extremity brac e noted. LABORATORY: WBC 4.6, hematocrit 29.3. IMPRESSION: 1. Patient has a left foot wound. 2. End-stage renal disease. 3. Hypertension. 4. Diabetes mellitus. 5. Atherosclerotic heart disease. 6. Dyslipidemia. 7. History of a left ankle fracture. 8. History of diabetic nephropathy, retinopathy and neuropathy. 9. History of coronary angiogram recently at [facility], done by Dr. Garcia and Dr. Hernandez. PLAN: Continue a diabetic renal diet and sliding scale. Blood pressure controlled. The patient jackson s hypothyroidism and should be on Synthroid. The patient will be undergoing hemodialysis. Thank you, Dr. Sheth, for kindly asking me to see this patient in nephrology consultation. Dictated By: RC WALSH/LUZ Conf#: [id number] DID#: [id number]
--- NOTE | 2016-07-26 18:45 | OPR ---
DATE OF OPERATION: 07/26/2016 SURGEON: Malik Campbell DPM [employer]UC[employer] MECHANICAL SPECIALIST: None. PREOPERATIVE DIAGNOSES: 1. Left ankle cellulitis. 2. Hematoma. 3. Charcot with prior tibiotalar arthrodesis. 4. Diabetes with neuropathy. 5. End-stage renal disease on hemodialysis. 6. Diabetic foot ulceration. POSTOPERATIVE DIAGNOSES: 1. Left ankle cellulitis. 2. Hematoma. 3. Charcot with prior tibiotalar arthrodesis. 4. Diabetes with neuropathy. 5. End-stage renal disease on hemodialysis. 6. Diabetic foot ulceration. PROCEDURES PERFORMED: 1. Excisional debridement of skin and subcutaneous tissue, left anterior ankle and foot, 2 x 1 cm. 2. Puncture aspiration of hematoma, left posterior medial ankle. ANESTHESIA: None. HEMOSTASIS: Compression. ESTIMATED BLOOD LOSS: 5 to 10 mL COMPLICATIONS: None. INDICATION FOR PROCEDURE: Left ankle hematoma, ulceration with nonviable tissue, necrotic tissue. The patient with preliminary cultures from left ankle revealing Staph aureus. Consent obtained. Pr ocedure performed at bedside. PROCEDURE IN DETAIL: The patient's wounds were cleansed with Betadine, and using sharp instrumentat ion, excisional debridement of skin and subcutaneous tissue performed of the left anterior ankle. T he ulceration measured 2 x 1 cm. There are no exposed tendon. Medially, there was a small puncture wound with draining sanguineous exudate. Using an 18 gauge needle, puncture aspiration performed r emoving approximately 10 mL of sanguineous exudate. The medial ankle wound was irrigated copiously with Betadine irrigation. Wounds were covered with Xeroform and a short leg cast applied. Cast lora lied due to concern for delayed osseous healing with persistent instability. The patient is at risk for further hardware complications. POSTOPERATIVE PLAN: We will follow up on the definitive culture results. The patient likely to req uire long-term antibiotics, currently on vancomycin and Zosyn. Appreciate ID recommendations. May require a PICC line placement. Dictated By: MALIK JIMENEZ/LUZ Conf#: [id number] DID#: [id number]
[2016-07-26] MEDS: ATORVASTATIN 20 MG TAB PO SCH (20:17)
[2016-07-27] VITALS (13 sets, daily range): BP systolic 178–213; BP diastolic 75–89; PULSE 57–71; RESP 17–20
[2016-07-27] MEDS: PIPER-TAZO 2.25 GM (PMX) 50 ML IVPB SCH ×3 (06:27→22:05)
[2016-07-27] MEDS: PANTOPRAZOLE (EC) 40 MG TAB PO SCH (06:27)
[2016-07-27] MEDS: CLOPIDOGREL 75 MG TAB PO SCH (08:26)
[2016-07-27] MEDS: ASPIRIN (EC) 325 MG TAB PO SCH (08:26)
[2016-07-27] MEDS: AMLODIPINE 5 MG TAB PO SCH (08:26)
[2016-07-27] MEDS: INSULIN ASPART [NOVOLOG] 3 ML PEN SC SCH ×4 (08:29→21:07)
--- NOTE | 2016-07-27 13:37 | CONS ---
Date/Time of Note Date/Time of Note DATE: 07/27/16 TIME: 13:32 Assessment/Plan Assessment/Plan Chief Complaint/Hosp Course 1. End-stage renal disease. 2. Hypertension. 3. Diabetes mellitus. 4. GERD. 5. Dyslipidemia. 6. Anemia. 7. Left ankle fracture. 8. The patient has a history of CAD. 9. Atherosclerotic heart disease. 10. The patient also has a history of PVD. 11. History of coronary artery bypass graft. 12. Patient had a Lexiscan done in the past. 13. Also angiogram done in the past. Problems: Additional Assessment/Plan 1. Kidney function optimization 2. HD continue 3. Keep BS control tighter by adding insulin detemir 10 units sq q pm 4. Hypertension start losartan 50 mg bid and clonidine patch 0.2 mg/24 transdermally Consultation Date/Type/Reason Admit Date/Time July 24, 2016 at 23:33 Initial Consult Date 07/26/2016 Type of Consultation: RENAL Reason for Consultation Dr Miller Exam/Review of Systems Vital Signs Vitals Vital Signs Date Time Temp Pulse Resp B/P Pulse Ox O2 Delivery O2 Flow Rate FiO2 07/27/16 12:00 98.2 61 17 207/89 95 07/26/16 19:43 Intake and Output 07/26/16 07/26/16 07/27/16 15:00 23:00 07:00 Intake Total 1380 ml 400 ml Output Total 3800 ml Balance -2420 ml 400 ml Exam Constitutional: alert, oriented Psych: no complaints Head: normocephalic Eyes: nl conjunctiva ENMT: nl external ears & nose Neck: supple Respiratory: clear to auscultation Cardiovascular: regular rate and rhythm Gastrointestinal: soft Genitourinary - Female: nl external genitalia Skin: nl turgor, other (left permacath) Results Result Diagram: 07/25/16 1530 07/25/16 1530 Results 24 hrs Laboratory Tests Test 07/26/16 17:51 07/26/16 20:20 07/27/16 08:25 07/27/16 12:30 Bedside Glucose 158 204 197 236 H Medications Medications Current Medications Ondansetron HCl (Zofran Inj) 4 mg Q6H PRN IV NAUSEA AND/OR VOMITING; Start 07/25 at 15:00 Acetaminophen (Tylenol Tab) 650 mg Q6H PRN PO PAIN LEVEL 1-3 OR FEVER; Start at 15:00 Acetaminophen/ Hydrocodone Bitart ([place] (5/325)) 1 tab Q6H PRN PO MODERATE PAIN LEVEL 4-6; Start 07/25/16 at 15:00 Docusate Sodium (Colace) 100 mg Q12H PRN PO CONSTIPATION; Start 07/25/16 at 15: 00 Magnesium Hydroxide (Milk Of Mag) 30 ml DAILY PRN PO CONSTIPATION; Start at 15:00 Zolpidem Tartrate (Ambien) 5 mg QHS PRN PO SLEEP; Start 07/25/16 at 15:00 Pantoprazole 40 mg 40 mg DAILY@06 PO Last administered on 07/27/16 06:27; Admin Dose 40 MG; Start 07/26/16 at 06:00 Piperacillin Sod/ Tazobactam Sod (Zosyn 2.25gm/ 50ml (Pmx)) 50 ml @ 100 mls/hr Q8 IVPB Last administered on 07/27/16 06:27; Admin Dose 100 MLS/HR; Start at 22:00 Miscellaneous Information 1 ea NOTE XX ; Start 07/25/16 at 19:30 Glucose (Glutose) 15 gm Q15M PRN PO DECREASED GLUCOSE; Start 07/25/16 at 19:30 Glucose (Glutose) 22.5 gm Q15M PRN PO DECREASED GLUCOSE; Start 07/25/16 at 19:30 Dextrose (D50w Syringe) 25 ml Q15M PRN IV DECREASED GLUCOSE; Start 07/25/16 at 19:30 Dextrose (D50w Syringe) 50 ml Q15M PRN IV DECREASED GLUCOSE; Start 07/25/16 at 19:30 Glucagon (Glucagen) 1 mg Q15M PRN IM DECREASED GLUCOSE; Start 07/25/16 at 19:30 Glucose (Glutose) 15 gm Q15M PRN BUCCAL DECREASED GLUCOSE; Start 07/25/16 at 19: 30 Clonidine (Catapres) 0.1 mg Q4H PRN PO ELEVATED BLOOD PRESSURE Last administered on 07/27/16 12:32; Admin Dose 0.1 MG; Start 07/25/16 at 21:00 Amlodipine Besylate (Norvasc) 5 mg DAILY PO Last administered on 07/27/16 08:26 ; Admin Dose 5 MG; Start 07/26/16 at 09:00 Aspirin (Ecotrin) 325 mg DAILY PO Last administered on 07/27/16 08:26; Admin Dose 325 MG; Start 07/26/16 at 09:00 Clopidogrel Bisulfate (plaVIX) 75 mg DAILY PO Last administered on 07/27/16 08: 26; Admin Dose 75 MG; Start 07/26/16 at 09:00 Atorvastatin Calcium (Lipitor) 20 mg HS PO Last administered on 07/26/16 20:17 ; Admin Dose 20 MG; Start 07/26/16 at 21:00 Clonidine (Catapres) 0.1 mg BID PO ; Start 07/27/16 at 21:00 HERON NATHAN July 27, 2016 13:37
[2016-07-27] MEDS: LOSARTAN 50 MG TAB NGT SCH ×2 (13:53→21:03)
[2016-07-27] MEDS: CLONIDINE 0.2 MG/24 HR PATCH TRANSDERM SCH (15:45)
[2016-07-27] MEDS ORDERED: VANCOMYCIN IV PER PHARMACY XX SCH (17:00)
--- NOTE | 2016-07-27 17:50 | PN ---
DATE: 07/27/2016 SUBJECTIVE: Patient denies any pain in the foot. No fever or chills. Appetite is good. VITAL SIGNS: Temperature 98, blood pressure 192/83, ____ pulse ox 96% on room air. HEENT: Head normocephalic. Mild pallor without cyanosis. LUNGS: Clinically clear. HEART: S1, S2. No definite gallops. ABDOMEN: Obese, nontender, no hepatosplenomegaly. EXTREMITIES: Left foot drop. The patient had excisional debridement of skin and subcutaneous tis layne, left anterior ankle and puncture aspiration of hematoma by Dr. Campbell yesterday. NEUROLOGIC: The patient presently on Zosyn only. Will add Vancomycin per pharmacy. IMPRESSION: 1. Cellulitis, left ankle, status post tibiotalar arthrodesis. 2. Diabetes mellitus type 2. 3. Hypertension. 4. Hyperlipidemia. 5. Coronary artery disease, status post coronary bypass surgery. 6. End-stage renal disease. The patient is presently only on Zosyn. We will add vancomycin per armacy, coordinate with nephrology regarding the timing of the dosage. Dictated By: RENE ALBERTS MD SR/NTS Conf#: [id number] DID#: [id number]
[2016-07-27] MEDS ORDERED: VANCOMYCIN 1 GM in NS 250 ML IVPB ONE (18:30)
[2016-07-27] MEDS: INSULIN DETEMIR [LEVEMIR] 3ML CART SC SCH (20:11)
[2016-07-27] MEDS: ATORVASTATIN 20 MG TAB PO SCH (21:02)
[2016-07-28] VITALS (13 sets, daily range): BP systolic 165–215; BP diastolic 72–98; PULSE 53–64; RESP 14–20
[2016-07-28] MEDS: PIPER-TAZO 2.25 GM (PMX) 50 ML IVPB SCH ×2 (05:49→14:10)
[2016-07-28] MEDS: PANTOPRAZOLE (EC) 40 MG TAB PO SCH (05:50)
[2016-07-28 06:01] LABS: ADD SCAN DIFF NO
[2016-07-28 06:11] LABS: BASOPHILS % 0.3 % (0.0-2.0); EOSINOPHILS # 0.3 10^3/ul (0.0-0.5); EOSINOPHILS % 4.3 % (0.0-7.0); HEMATOCRIT 25.5 % (37.0-47.0); HEMOGLOBIN 8.1 g/dl (12.0-16.0); LYMPHOCYTES # 0.9 10^3/ul (0.8-2.9); LYMPHOCYTES % 13.1 % (15.0-51.0); MEAN CORPUSCULAR HEMOGLOBIN 33.3 pg (29.0-33.0); MEAN CORPUSCULAR HGB CONC 31.8 g/dl (32.0-37.0); MEAN CORPUSCULAR VOLUME 104.9 fl (82.0-101.0); MEAN PLATELET VOLUME 9.3 fl (7.4-10.4); MONOCYTE # 0.4 10^3/ul (0.3-0.9); NEUTROPHIL # 5.3 10^3/ul (1.6-7.5); NEUTROPHILS % 75.6 % (39.0-77.0); NUCLEATED RED BLOOD CELLS% 0.3 /100WBC (0.0-0.0); PLATELET COUNT 225 10^3/UL (140-415); RED BLOOD COUNT 2.43 10^6/ul (4.20-5.40); RED CELL DISTRIBUTION WIDTH 12.4 % (11.5-14.5)
[2016-07-28 07:06] LABS: POTASSIUM 4.8 mmol/L (3.5-5.1)
[2016-07-28 07:09] LABS: CREATININE 5.12 mg/dl (0.44-1.00)
[2016-07-28] MEDS: ASPIRIN (EC) 325 MG TAB PO SCH (08:34)
[2016-07-28] MEDS: CLOPIDOGREL 75 MG TAB PO SCH (08:34)
[2016-07-28] MEDS: LOSARTAN 50 MG TAB NGT SCH ×2 (08:35→21:48)
[2016-07-28] MEDS: AMLODIPINE 5 MG TAB PO SCH (08:35)
[2016-07-28] MEDS: INSULIN ASPART [NOVOLOG] 3 ML PEN SC SCH ×5 (08:38→21:49)
--- NOTE | 2016-07-28 14:11 | CONS ---
DATE OF ADMISSION: 07/24/2016 DATE OF CONSULTATION: 07/28/2016 SUBJECTIVE FINDINGS: The patient being followed for left foot and ankle status post puncture aspira tion and irrigation cultures positive for Staph aureus, currently on vancomycin and Zosyn. REVIEW OF SYSTEMS: Denies any fever, nausea, vomiting. The patient denies any pain of the left berenice t and ankle. The patient is eating well. PHYSICAL EXAMINATION: VITAL SIGNS: Temperature 97.8, pulse 59, respiratory rate 16, blood pressure 215/98. GENERAL: The patient is sitting in bed, alert and oriented, in no acute distress. Regular respirat ion. EXTREMITIES: The patient has a short leg cast with normal flexion and extension of the toes. Cap r efill time immediate, toes are warm. No pain with passive range of motion of the knee. LABORATORIES: WBC 7, hemoglobin 8.1, hematocrit 25.5, platelets 225. Sodium 133, potassium 4.8, ch loride 94, CO2 24, BUN 49, creatinine 5.12. Cultures positive for Staph aureus with mederos sensitivity . ASSESSMENT: X-rays, left ankle status post distal fibular osteotomy fusion of the tibia and calcane us. PLAN: The patient is stable. Would recommend continuation of antibiotics given implanted hardware with positive cultures. I appreciate ID recommendations, likely 4 weeks of antibiotics. Dictated By: MALIK JIMENEZ/LUZ Conf#: [id number] DID#: [id number]
[2016-07-28] MEDS: hydrALAzine 20 MG INJ IV PRN (14:51)
--- NOTE | 2016-07-28 17:39 | PN ---
DATE: 07/28/2016 INFECTIOUS DISEASE PROGRESS NOTE SUBJECTIVE: No acute changes. Patient is alert, feels good, looks comfortable, no fevers. WBC 7, no shift, no bands. BUN 49, creatinine 5.12. MICROBIOLOGY: Left foot wound culture growing Staphylococcus aureus. ANTIMICROBIALS: The patient is on: 1. IV vancomycin. 2. Zosyn. PHYSICAL EXAMINATION: GENERAL: Well-developed, elderly woman who is awake, in no distress. HEENT: Head atraumatic, normocephalic. Sclerae anicteric. Buccal mucosa pink. NECK: Supple. CHEST: Rise symmetrical. Breath sounds clear. HEART: S1, S2. ABDOMEN: Soft, bowel tones present. EXTREMITIES: Left foot in a cast. ASSESSMENT: 1. Left ankle cellulitis with hematoma and Charcot, status post debridement with a puncture aspirat ion of hematoma. 2. End-stage renal disease, hemodialysis dependent. 3. Diabetes with diabetic neuropathy. 4. Anemia. PLAN: The patient remains stable. As per discussion with Dr. Campbell, she will need to be on antibi otics for 4 to 6 weeks. We will discontinue Zosyn. Keep her on IV vancomycin with hemodialysis as she is growing Staphylococcus aureus in her wound and to avoid PICC line placement. Dictated By: AJ ROMERO BOWSTRING MAKER for SONIA REED/LUZ Conf#: [id number] DID#: [id number]
--- NOTE | 2016-07-28 17:59 | CONS ---
Date/Time of Note Date/Time of Note DATE: 07/28/16 TIME: 17:58 Assessment/Plan Assessment/Plan Chief Complaint/Hosp Course [id number] RENAL A/P FOOT WOUND ESRD HTN [facility] DM ANEMIA CAD PLAN HD AM BP MEDS Problems: Consultation Date/Type/Reason Admit Date/Time July 24, 2016 at 23:33 Type of Consultation: RENAL 24 HR Interval Summary Constitutional: no complaints Exam/Review of Systems Vital Signs Vitals Vital Signs Date Time Temp Pulse Resp B/P Pulse Ox O2 Delivery O2 Flow Rate FiO2 07/28/16 16:15 54 07/28/16 16:01 97.5 16 172/72 94 07/26/16 19:43 Intake and Output 07/27/16 07/27/16 07/28/16 15:00 23:00 07:00 Intake Total 750 ml 170 ml Balance 750 ml 170 ml Exam Respiratory: clear to auscultation Cardiovascular: regular rate and rhythm Gastrointestinal: soft Extremities: normal pulses Neurological: VISUAL DESIGN LEAD II-XII intact Results Result Diagram: 07/28/16 0530 07/28/16 0530 Results 24 hrs Laboratory Tests Test 07/27/16 21:02 07/28/16 05:30 07/28/16 08:09 07/28/16 12:16 Bedside Glucose 198 161 219 White Blood Count 7.0 # Red Blood Count 2.43 L Hemoglobin 8.1 L Hematocrit 25.5 L Mean Corpuscular Volume 104.9 H Mean Corpuscular Hemoglobin 33.3 H Mean Corpuscular Hemoglobin Concent 31.8 L Red Cell Distribution Width 12.4 Platelet Count 225 Mean Platelet Volume 9.3 Neutrophils % 75.6 Lymphocytes % 13.1 L Monocytes % 5.0 Eosinophils % 4.3 Basophils % 0.3 Nucleated Red Blood Cells % 0.3 H Neutrophils # 5.3 Lymphocytes # 0.9 Monocytes # 0.4 Eosinophils # 0.3 Basophils # 0.0 Nucleated Red Blood Cells # 0.0 Sodium Level 133 L Potassium Level 4.8 Chloride Level 94 L Carbon Dioxide Level 24 Anion Gap 20 H Blood Urea Nitrogen 49 H Creatinine 5.12 H Glucose Level 161 Calcium Level 9.0 Test 07/28/16 17:13 Bedside Glucose 285 H Medications Medications Current Medications Ondansetron HCl (Zofran Inj) 4 mg Q6H PRN IV NAUSEA AND/OR VOMITING; Start 07/25 at 15:00 Acetaminophen (Tylenol Tab) 650 mg Q6H PRN PO PAIN LEVEL 1-3 OR FEVER; Start at 15:00 Acetaminophen/ Hydrocodone Bitart ([place] (5/325)) 1 tab Q6H PRN PO MODERATE PAIN LEVEL 4-6; Start 07/25/16 at 15:00 Docusate Sodium (Colace) 100 mg Q12H PRN PO CONSTIPATION; Start 07/25/16 at 15: 00 Magnesium Hydroxide (Milk Of Mag) 30 ml DAILY PRN PO CONSTIPATION; Start at 15:00 Zolpidem Tartrate (Ambien) 5 mg QHS PRN PO SLEEP; Start 07/25/16 at 15:00 Pantoprazole (Protonix Tab) 40 mg DAILY@06 PO Last administered on 07/28/16 05: 50; Admin Dose 40 MG; Start 07/26/16 at 06:00 Miscellaneous Information 1 ea NOTE XX ; Start 07/25/16 at 19:30 Glucose (Glutose) 15 gm Q15M PRN PO DECREASED GLUCOSE; Start 07/25/16 at 19:30 Glucose (Glutose) 22.5 gm Q15M PRN PO DECREASED GLUCOSE; Start 07/25/16 at 19:30 Dextrose (D50w Syringe) 25 ml Q15M PRN IV DECREASED GLUCOSE; Start 07/25/16 at 19:30 Dextrose (D50w Syringe) 50 ml Q15M PRN IV DECREASED GLUCOSE; Start 07/25/16 at 19:30 Glucagon (Glucagen) 1 mg Q15M PRN IM DECREASED GLUCOSE; Start 07/25/16 at 19:30 Glucose (Glutose) 15 gm Q15M PRN BUCCAL DECREASED GLUCOSE; Start 07/25/16 at 19: 30 Clonidine (Catapres) 0.1 mg Q4H PRN PO ELEVATED BLOOD PRESSURE Last administered on 07/28/16 12:31; Admin Dose 0.1 MG; Start 07/25/16 at 21:00 Aspirin (Ecotrin) 325 mg DAILY PO Last administered on 07/28/16 08:34; Admin Dose 325 MG; Start 07/26/16 at 09:00 Clopidogrel Bisulfate (plaVIX) 75 mg DAILY PO Last administered on 07/28/16 08: 34; Admin Dose 75 MG; Start 07/26/16 at 09:00 Atorvastatin Calcium (Lipitor) 20 mg HS PO Last administered on 07/27/16 21:02 ; Admin Dose 20 MG; Start 07/26/16 at 21:00 Losartan Potassium (Cozaar) 50 mg BID NGT Last administered on 07/28/16 08:35; Admin Dose 50 MG; Start 07/27/16 at 14:00 Clonidine HCl (Catapres-Tts 2 Patch) 1 patch Q7D TRANSDERM Last administered on 07/27/16 15:45; Admin Dose 1 PATCH; Start 07/27/16 at 15:00 Insulin Detemir (Levemir) 10 unit DAILY@20 SC Last administered on 07/27/16 20: 11; Admin Dose 10 UNIT; Start 07/27/16 at 20:00 Miscellaneous Information (*Rx Drug Level Order Reminder*) RANDOM VANCOMYCIN LEVEL ... ONCE ONCE XX ; Start 07/29/16 at 05:00; Stop 07/29/16 at 05:01 Hydralazine HCl (Apresoline) 10 mg Q4H PRN IV SBP >170 Last administered on 07/28 14:51; Admin Dose 10 MG; Start 07/28/16 at 14:30 Nifedipine (Procardia Xl) 60 mg BID PO ; Start 07/28/16 at 21:00; Status UNV Hydralazine HCl (Apresoline) 25 mg TID PO ; Start 07/28/16 at 21:00; Status UNV RC OLIVA MD July 28, 2016 17:59
--- NOTE | 2016-07-28 18:40 | PN ---
DATE: 07/28/2016 SUBJECTIVE: The patient overall feels well. Denies any chest pain or shortness of breath. PHYSICAL EXAMINATION: VITAL SIGNS: Temperature 97.5, blood pressure 172/72, earlier it was 215/93, after which hydralazin e 10 mg IV was given with improvement of the blood pressure. HEENT: Mild pallor without cyanosis. LUNGS: Clinically clear. HEART: S1, S2 heard with no definite gallops. ABDOMEN: Obese, nontender. No hepatosplenomegaly. EXTREMITIES: No edema, right lower extremity. Left foot in a cast. LABORATORY DATA: WBC count 7.0, hematocrit 23.5, platelet count 225. Sodium 132, potassium 4.8, BU N 49, creatinine 5.12, glucose 219, 285 this evening. Recommendation by Varsha Souza is well appreciated. Will continue vancomycin with dialysis. IMPRESSION: 1. Left ankle cellulitis with hematoma and Charcot status post debridement with puncture aspiration of hematoma. 2. End-stage renal disease, hemodialysis dependent. 3. Diabetes mellitus type 2 with diabetic neuropathy. 4. Anemia. 5. Severe hypertension. PLAN: Will optimize meds for hypertension. Continue IV vancomycin. Change the NovoLog to moderate algorithm. Dictated By: RENE ALBERTS MD SR/NTS Conf#: [id number] DID#: [id number]
[2016-07-28] MEDS: INSULIN DETEMIR [LEVEMIR] 3ML CART SC SCH (19:58)
[2016-07-28] MEDS: NIFEdipine (XL) 60 MG TAB PO SCH (21:47)
[2016-07-28] MEDS: ATORVASTATIN 20 MG TAB PO SCH (21:47)
[2016-07-29] VITALS (19 sets, daily range): BP systolic 95–182; BP diastolic 42–72; PULSE 47–65; RESP 16–19
[2016-07-29] MEDS: hydrALAzine 20 MG INJ IV PRN (00:08)
[2016-07-29] MEDS: ACCU-CHEK XX SCH (02:00)
[2016-07-29] MEDS: PANTOPRAZOLE (EC) 40 MG TAB PO SCH (06:00)
[2016-07-29] MEDS: INSULIN ASPART [NOVOLOG] 3 ML PEN SC SCH ×4 (08:00→21:56)
[2016-07-29] MEDS: LOSARTAN 50 MG TAB NGT SCH ×2 (09:00→22:01)
[2016-07-29] MEDS: NIFEdipine (XL) 60 MG TAB PO SCH ×2 (09:00→20:50)
--- NOTE | 2016-07-29 09:00 | PN ---
DATE: 07/26/2016 SUBJECTIVE: The patient has mild pain of the left foot. Denies any chest pain or shortness of axel th. PHYSICAL EXAMINATION VITAL SIGNS: Temperature 97.9, blood pressure 190/82, respirations 20 per minute, pulse oximetry 94 %. HEENT: Head normocephalic. Mild pallor without cyanosis. LUNGS: Clinically clear. HEART: S1, S2 heard with no definite gallops. ABDOMEN: Soft, nontender, nondistended. EXTREMITIES: Left foot with posterior splint in place, dressing intact. LABORATORY DATA: WBC count 4.6, hematocrit 29.3, platelet count 257,000, hemoglobin 6. ____ _. IMPRESSION: 1. Cellulitis, left ankle, status post tibiotalar arthrodesis, osteomyelitis . 2. . 3. Hypertension. 4. Hyperlipidemia. 5. . Dictated By: RENE ALBERTS MD, SR/LUZ Conf#: [id number] DID#: [id number]
[2016-07-29] MEDS: ASPIRIN (EC) 325 MG TAB PO SCH (09:29)
[2016-07-29] MEDS: CLOPIDOGREL 75 MG TAB PO SCH (09:29)
[2016-07-29] MEDS ORDERED: HEPARIN 1000 UNITS/ML 10 ML INJ CATHETER SCH (10:30)
[2016-07-29] MEDS: ALBUMIN HUMAN 25% 100 ML IV SCH ×2 (10:56→11:38)
--- NOTE | 2016-07-29 12:46 | CONS ---
Date/Time of Note Date/Time of Note DATE: 07/29/16 TIME: 12:45 Assessment/Plan Assessment/Plan Chief Complaint/Hosp Course SUBJECTIVE: No acute changes. Patient is in HD, alert, feels good, looks comfortable, no fevers. MICROBIOLOGY: Left foot wound culture growing Staphylococcus aureus. ANTIMICROBIALS: IV vancomycin. PHYSICAL EXAMINATION: GENERAL: Well-developed, elderly woman who is awake, in no distress. HEENT: Head atraumatic, normocephalic. Sclerae anicteric. Buccal mucosa pink. NECK: Supple. CHEST: Rise symmetrical. Breath sounds clear. HEART: S1, S2. ABDOMEN: Soft, bowel tones present. EXTREMITIES: Left foot in a cast. ASSESSMENT: 1. Left ankle cellulitis with hematoma and Charcot, status post debridement with a puncture aspiration of hematoma. 2. End-stage renal disease, hemodialysis dependent. 3. Diabetes with diabetic neuropathy. 4. Anemia. 5. LSC permacath PLAN: The patient remains stable. Anticipate dc on IV Vanco post HD for 4-6 weeks as per discussion with Dr. Campbell staff Problems: Consultation Date/Type/Reason Admit Date/Time July 24, 2016 at 23:33 Initial Consult Date Type of Consultation: ID Exam/Review of Systems Vital Signs Vitals Vital Signs Date Time Temp Pulse Resp B/P Pulse Ox O2 Delivery O2 Flow Rate FiO2 07/29/16 12:02 47 07/29/16 11:50 98.4 16 107/45 94 07/26/16 19:43 Intake and Output 07/28/16 07/28/16 07/29/16 15:00 23:00 07:00 Intake Total 650 ml 500 ml Balance 650 ml 500 ml Results Result Diagram: 07/28/16 0530 07/28/16 0530 Results 24 hrs Laboratory Tests Test 07/28/16 17:13 07/28/16 21:37 07/29/16 02:38 07/29/16 05:43 Bedside Glucose 285 H 202 140 Random Vancomycin Level 19.2 Test 07/29/16 08:21 07/29/16 12:03 Bedside Glucose 125 161 Medications Medications Current Medications Ondansetron HCl (Zofran Inj) 4 mg Q6H PRN IV NAUSEA AND/OR VOMITING; Start 07/25 at 15:00 Acetaminophen (Tylenol Tab) 650 mg Q6H PRN PO PAIN LEVEL 1-3 OR FEVER; Start at 15:00 Acetaminophen/ Hydrocodone Bitart ([place] (5/325)) 1 tab Q6H PRN PO MODERATE PAIN LEVEL 4-6; Start 07/25/16 at 15:00 Docusate Sodium (Colace) 100 mg Q12H PRN PO CONSTIPATION; Start 07/25/16 at 15: 00 Magnesium Hydroxide (Milk Of Mag) 30 ml DAILY PRN PO CONSTIPATION; Start at 15:00 Zolpidem Tartrate (Ambien) 5 mg QHS PRN PO SLEEP; Start 07/25/16 at 15:00 Pantoprazole (Protonix Tab) 40 mg DAILY@06 PO Last administered on 07/29/16 06: 00; Admin Dose 40 MG; Start 07/26/16 at 06:00 Miscellaneous Information 1 ea NOTE XX ; Start 07/25/16 at 19:30 Glucose (Glutose) 15 gm Q15M PRN PO DECREASED GLUCOSE; Start 07/25/16 at 19:30 Glucose (Glutose) 22.5 gm Q15M PRN PO DECREASED GLUCOSE; Start 07/25/16 at 19:30 Dextrose (D50w Syringe) 25 ml Q15M PRN IV DECREASED GLUCOSE; Start 07/25/16 at 19:30 Dextrose (D50w Syringe) 50 ml Q15M PRN IV DECREASED GLUCOSE; Start 07/25/16 at 19:30 Glucagon (Glucagen) 1 mg Q15M PRN IM DECREASED GLUCOSE; Start 07/25/16 at 19:30 Glucose (Glutose) 15 gm Q15M PRN BUCCAL DECREASED GLUCOSE; Start 07/25/16 at 19: 30 Clonidine (Catapres) 0.1 mg Q4H PRN PO ELEVATED BLOOD PRESSURE Last administered on 07/28/16 12:31; Admin Dose 0.1 MG; Start 07/25/16 at 21:00 Aspirin (Ecotrin) 325 mg DAILY PO Last administered on 07/29/16 09:29; Admin Dose 325 MG; Start 07/26/16 at 09:00 Clopidogrel Bisulfate (plaVIX) 75 mg DAILY PO Last administered on 07/29/16 09: 29; Admin Dose 75 MG; Start 07/26/16 at 09:00 Atorvastatin Calcium (Lipitor) 20 mg HS PO Last administered on 07/28/16 21:47 ; Admin Dose 20 MG; Start 07/26/16 at 21:00 Losartan Potassium (Cozaar) 50 mg BID NGT Last administered on 07/28/16 21:48; Admin Dose 50 MG; Start 07/27/16 at 14:00 Clonidine HCl (Catapres-Tts 2 Patch) 1 patch Q7D TRANSDERM Last administered on 07/27/16 15:45; Admin Dose 1 PATCH; Start 07/27/16 at 15:00 Insulin Detemir (Levemir) 10 unit DAILY@20 SC Last administered on 07/28/16 19: 58; Admin Dose 10 UNIT; Start 07/27/16 at 20:00 Hydralazine HCl (Apresoline) 10 mg Q4H PRN IV SBP >170 Last administered on 07/29 00:08; Admin Dose 10 MG; Start 07/28/16 at 14:30 Nifedipine (Procardia Xl) 60 mg BID PO Last administered on 07/28/16 21:47; Admin Dose 60 MG; Start 07/28/16 at 21:00 Hydralazine HCl (Apresoline) 25 mg TID PO Last administered on 07/28/16 21:48; Admin Dose 25 MG; Start 07/28/16 at 21:00 Diagnostic Test (Pha) 1 ea 1 ea 02 XX ; Start 07/29/16 at 02:00 Albumin Human (Albumin Human 25%) 100 ml @ 100 mls/hr Q1H IV Last administered on 07/29/16 11:38; Admin Dose 100 MLS/HR; Start 07/29/16 at 11:30; Stop 07/29/16 at 13:29 AJ ROMERO NP July 29, 2016 12:46
--- NOTE | 2016-07-29 18:07 | PN ---
DATE: 07/29/2016 SUBJECTIVE: The patient complains of pain in the left ear. No discharge noted. No chest pain or s hortness of breath. PHYSICAL EXAMINATION: VITAL SIGNS: The patient is afebrile. Blood pressure 107/45, pulse ox 94% per minute. HEENT: Mild pallor with cyanosis. CHEST: Clear. Left TM is visualized. EXTREMITIES: No edema. LABORATORY: One culture growing MSSA. IMPRESSION: 1. Cellulitis left ankle, status post tibiotalar arthrodesis. 2. End-stage renal disease. Hemodialysis dependent. 3. Diabetes mellitus type 2 with diabetic neuropathy. Diabetes better controlled. 4. Anemia. 5. Hypertension well controlled. PLAN: We will continue present management. Would consider cefazolin with hemodialysis since the p atient has methicillin-sensitive Staphylococcus aureus if okay with infectious disease. Dictated By: RENE ALBERTS MD, SR/LUZ Conf#: [id number] DID#: [id number]
[2016-07-29] MEDS: ATORVASTATIN 20 MG TAB PO SCH ×2 (20:50→22:01)
[2016-07-29] MEDS: INSULIN DETEMIR [LEVEMIR] 3ML CART SC SCH (21:54)
--- NOTE | 2016-07-29 23:11 | CONS ---
Date/Time of Note Date/Time of Note DATE: 07/29/16 TIME: 23:10 Assessment/Plan Assessment/Plan Chief Complaint/Hosp Course [id number] RENAL A/P FOOT WOUND ESRD HTN DM ANEMIA CAD PLAN HD BP MEDS per id Problems: Consultation Date/Type/Reason Admit Date/Time July 24, 2016 at 23:33 Type of Consultation: renal 24 HR Interval Summary Constitutional: no complaints Exam/Review of Systems Vital Signs Vitals Vital Signs Date Time Temp Pulse Resp B/P Pulse Ox O2 Delivery O2 Flow Rate FiO2 07/29/16 20:01 65 07/29/16 19:40 98.4 19 135/63 94 07/26/16 19:43 Intake and Output 07/28/16 07/28/16 07/29/16 15:00 23:00 07:00 Intake Total 650 ml 500 ml Balance 650 ml 500 ml Exam Neck: supple Respiratory: clear to auscultation Cardiovascular: regular rate and rhythm Gastrointestinal: soft Musculoskeletal: nl extremities to inspection Extremities: normal pulses Results Result Diagram: 07/28/16 0530 07/28/16 0530 Results 24 hrs Laboratory Tests Test 07/29/16 02:38 07/29/16 05:43 07/29/16 08:21 07/29/16 12:03 Bedside Glucose 140 125 161 Random Vancomycin Level 19.2 Test 07/29/16 17:24 Bedside Glucose 245 H Medications Medications Current Medications Ondansetron HCl (Zofran Inj) 4 mg Q6H PRN IV NAUSEA AND/OR VOMITING; Start 07/25 at 15:00 Acetaminophen (Tylenol Tab) 650 mg Q6H PRN PO PAIN LEVEL 1-3 OR FEVER; Start at 15:00 Acetaminophen/ Hydrocodone Bitart ([place] (5/325)) 1 tab Q6H PRN PO MODERATE PAIN LEVEL 4-6; Start 07/25/16 at 15:00 Docusate Sodium (Colace) 100 mg Q12H PRN PO CONSTIPATION; Start 07/25/16 at 15: 00 Magnesium Hydroxide (Milk Of Mag) 30 ml DAILY PRN PO CONSTIPATION; Start at 15:00 Zolpidem Tartrate (Ambien) 5 mg QHS PRN PO SLEEP; Start 07/25/16 at 15:00 Pantoprazole (Protonix Tab) 40 mg DAILY@06 PO Last administered on 07/29/16 06: 00; Admin Dose 40 MG; Start 07/26/16 at 06:00 Miscellaneous Information 1 ea NOTE XX ; Start 07/25/16 at 19:30 Glucose (Glutose) 15 gm Q15M PRN PO DECREASED GLUCOSE; Start 07/25/16 at 19:30 Glucose (Glutose) 22.5 gm Q15M PRN PO DECREASED GLUCOSE; Start 07/25/16 at 19:30 Dextrose (D50w Syringe) 25 ml Q15M PRN IV DECREASED GLUCOSE; Start 07/25/16 at 19:30 Dextrose (D50w Syringe) 50 ml Q15M PRN IV DECREASED GLUCOSE; Start 07/25/16 at 19:30 Glucagon (Glucagen) 1 mg Q15M PRN IM DECREASED GLUCOSE; Start 07/25/16 at 19:30 Glucose (Glutose) 15 gm Q15M PRN BUCCAL DECREASED GLUCOSE; Start 07/25/16 at 19: 30 Clonidine (Catapres) 0.1 mg Q4H PRN PO ELEVATED BLOOD PRESSURE Last administered on 07/28/16 12:31; Admin Dose 0.1 MG; Start 07/25/16 at 21:00 Aspirin (Ecotrin) 325 mg DAILY PO Last administered on 07/29/16 09:29; Admin Dose 325 MG; Start 07/26/16 at 09:00 Clopidogrel Bisulfate (plaVIX) 75 mg DAILY PO Last administered on 07/29/16 09: 29; Admin Dose 75 MG; Start 07/26/16 at 09:00 Atorvastatin Calcium (Lipitor) 20 mg HS PO Last administered on 07/29/16 22:01 ; Admin Dose 20 MG; Start 07/26/16 at 21:00 Losartan Potassium (Cozaar) 50 mg BID NGT Last administered on 07/29/16 22:01; Admin Dose 50 MG; Start 07/27/16 at 14:00 Clonidine HCl (Catapres-Tts 2 Patch) 1 patch Q7D TRANSDERM Last administered on 07/27/16 15:45; Admin Dose 1 PATCH; Start 07/27/16 at 15:00 Insulin Detemir (Levemir) 10 unit DAILY@20 SC Last administered on 07/29/16 21: 54; Admin Dose 10 UNIT; Start 07/27/16 at 20:00 Hydralazine HCl (Apresoline) 10 mg Q4H PRN IV SBP >170 Last administered on 07/29 00:08; Admin Dose 10 MG; Start 07/28/16 at 14:30 Nifedipine (Procardia Xl) 60 mg BID PO Last administered on 07/29/16 20:50; Admin Dose 60 MG; Start 07/28/16 at 21:00 Hydralazine HCl (Apresoline) 25 mg TID PO Last administered on 07/29/16 22:02; Admin Dose 25 MG; Start 07/28/16 at 21:00 Diagnostic Test (Pha) 1 ea 1 ea 02 XX ; Start 07/29/16 at 02:00 Vancomycin HCl/ Sodium Chloride (Vancocin/NS) 150 ml @ 75 mls/hr ONCE IVPB ; Start 07/30/16 at 11:00; Stop 07/30/16 at 18:00 RC OLIVA MD July 29, 2016 23:11
[2016-07-30] VITALS (13 sets, daily range): BP systolic 124–155; BP diastolic 57–70; PULSE 60–99; RESP 16–19
[2016-07-30] MEDS: HYDROCODONE/APAP (5/325) TAB PO PRN (02:41)
[2016-07-30] MEDS: ACCU-CHEK XX SCH (02:44)
--- NOTE | 2016-07-30 03:47 | PN ---
DATE: 07/29/2016 SUBJECTIVE FINDINGS: The patient being followed for left lower extremity cellulitis. She has Staph aureus from puncture aspiration. The patient is status post dialysis. Denies any chest pain, shor tness of breath. The patient currently on IV vancomycin. PHYSICAL EXAMINATION: VITAL SIGNS: Temperature 98.4, pulse 69, respiratory rate 19, blood pressure 135/63, pulse oximetry 94. GENERAL: The patient awake, lying supine in no acute distress. EXTREMITIES: The patient has the left foot with a cast. Normal range of motion with toes, 2+ popli teal pulse. No drainage visualized. LABORATORIES: WBC 7, hemoglobin 8.1, hematocrit 25.5, platelets 225. Sed rate is 110. Glucose is 245. ASSESSMENT: 1. Left ankle cellulitis. 2. Status post puncture aspiration of hematoma. 3. End-stage renal disease on hemodialysis. 4. Diabetes with neuropathy. 5. Chronic anemia. PLAN: The patient is stable. Recommend discharge planning, 4 to 6 weeks of IV vancomycin with dial ysis. Appreciate ID recommendations for followup as an outpatient. The patient remains nonweightbe aring to the left foot. Dictated By: MALIK JIMENEZ/LUZ Conf#: [id number] DID#: [id number]
[2016-07-30] MEDS: PANTOPRAZOLE (EC) 40 MG TAB PO SCH (06:13)
[2016-07-30] MEDS: INSULIN ASPART [NOVOLOG] 3 ML PEN SC SCH ×4 (08:00→21:00)
[2016-07-30] MEDS: LOSARTAN 50 MG TAB NGT SCH ×2 (10:03→21:11)
[2016-07-30] MEDS: ASPIRIN (EC) 325 MG TAB PO SCH (10:03)
[2016-07-30] MEDS: CLOPIDOGREL 75 MG TAB PO SCH (10:03)
[2016-07-30] MEDS: NIFEdipine (XL) 60 MG TAB PO SCH ×2 (10:03→21:23)
[2016-07-30] MEDS ORDERED: VANCOMYCIN 750 MG in SOD CHLORIDE 0.9% 150 ML IVPB SCH (11:00)
--- NOTE | 2016-07-30 13:48 | CONS ---
Date/Time of Note Date/Time of Note DATE: 07/30/16 TIME: 13:47 Assessment/Plan Assessment/Plan Chief Complaint/Hosp Course SUBJECTIVE: No acute changes. Sleeping, looks comfortable, no fevers. MICROBIOLOGY: Left foot wound culture growing Staphylococcus aureus. ANTIMICROBIALS: IV vancomycin. PHYSICAL EXAMINATION: GENERAL: Well-developed, elderly woman who is awake, in no distress. HEENT: Head atraumatic, normocephalic. Sclerae anicteric. Buccal mucosa pink. NECK: Supple. CHEST: Rise symmetrical. Breath sounds clear. HEART: S1, S2. ABDOMEN: Soft, bowel tones present. EXTREMITIES: Left foot in a cast. ASSESSMENT: 1. Left ankle cellulitis with hematoma and Charcot, status post debridement with a puncture aspiration of hematoma. 2. End-stage renal disease, hemodialysis dependent. 3. Diabetes with diabetic neuropathy. 4. Anemia. 5. LSC permacath PLAN: The patient remains stable. Anticipate dc on IV Vanco post HD for 4-6 weeks, f/u with Dr. Campbell op staff Problems: Consultation Date/Type/Reason Admit Date/Time July 24, 2016 at 23:33 Type of Consultation: ID Exam/Review of Systems Vital Signs Vitals Vital Signs Date Time Temp Pulse Resp B/P Pulse Ox O2 Delivery O2 Flow Rate FiO2 07/30/16 12:04 99 07/30/16 11:48 97.7 18 139/65 96 07/26/16 19:43 Intake and Output 07/29/16 07/29/16 07/30/16 15:00 23:00 07:00 Intake Total 500 ml 500 ml 400 ml Output Total 4000 ml 3500 ml Balance -3500 ml -3000 ml 400 ml Results Result Diagram: 07/28/16 0530 07/28/16 0530 Results 24 hrs Laboratory Tests Test 07/29/16 17:24 07/30/16 02:39 07/30/16 08:19 07/30/16 11:42 Bedside Glucose 245 H 215 132 162 Medications Medications Current Medications Ondansetron HCl (Zofran Inj) 4 mg Q6H PRN IV NAUSEA AND/OR VOMITING; Start 07/25 at 15:00 Acetaminophen (Tylenol Tab) 650 mg Q6H PRN PO PAIN LEVEL 1-3 OR FEVER; Start at 15:00 Acetaminophen/ Hydrocodone Bitart ([place] (5/325)) 1 tab Q6H PRN PO MODERATE PAIN LEVEL 4-6 Last administered on 07/30/16 02:41; Admin Dose 1 TAB; Start 07/25 at 15:00 Docusate Sodium (Colace) 100 mg Q12H PRN PO CONSTIPATION; Start 07/25/16 at 15: 00 Magnesium Hydroxide (Milk Of Mag) 30 ml DAILY PRN PO CONSTIPATION; Start at 15:00 Zolpidem Tartrate (Ambien) 5 mg QHS PRN PO SLEEP; Start 07/25/16 at 15:00 Pantoprazole (Protonix Tab) 40 mg DAILY@06 PO Last administered on 07/30/16 06: 13; Admin Dose 40 MG; Start 07/26/16 at 06:00 Miscellaneous Information 1 ea NOTE XX ; Start 07/25/16 at 19:30 Glucose (Glutose) 15 gm Q15M PRN PO DECREASED GLUCOSE; Start 07/25/16 at 19:30 Glucose (Glutose) 22.5 gm Q15M PRN PO DECREASED GLUCOSE; Start 07/25/16 at 19:30 Dextrose (D50w Syringe) 25 ml Q15M PRN IV DECREASED GLUCOSE; Start 07/25/16 at 19:30 Dextrose (D50w Syringe) 50 ml Q15M PRN IV DECREASED GLUCOSE; Start 07/25/16 at 19:30 Glucagon (Glucagen) 1 mg Q15M PRN IM DECREASED GLUCOSE; Start 07/25/16 at 19:30 Glucose (Glutose) 15 gm Q15M PRN BUCCAL DECREASED GLUCOSE; Start 07/25/16 at 19: 30 Clonidine (Catapres) 0.1 mg Q4H PRN PO ELEVATED BLOOD PRESSURE Last administered on 07/28/16 12:31; Admin Dose 0.1 MG; Start 07/25/16 at 21:00 Aspirin (Ecotrin) 325 mg DAILY PO Last administered on 07/30/16 10:03; Admin Dose 325 MG; Start 07/26/16 at 09:00 Clopidogrel Bisulfate (plaVIX) 75 mg DAILY PO Last administered on 07/30/16 10: 03; Admin Dose 75 MG; Start 07/26/16 at 09:00 Atorvastatin Calcium (Lipitor) 20 mg HS PO Last administered on 07/29/16 22:01 ; Admin Dose 20 MG; Start 07/26/16 at 21:00 Losartan Potassium (Cozaar) 50 mg BID NGT Last administered on 07/30/16 10:03; Admin Dose 50 MG; Start 07/27/16 at 14:00 Clonidine HCl (Catapres-Tts 2 Patch) 1 patch Q7D TRANSDERM Last administered on 07/27/16 15:45; Admin Dose 1 PATCH; Start 07/27/16 at 15:00 Insulin Detemir (Levemir) 10 unit DAILY@20 SC Last administered on 07/29/16 21: 54; Admin Dose 10 UNIT; Start 07/27/16 at 20:00 Hydralazine HCl (Apresoline) 10 mg Q4H PRN IV SBP >170 Last administered on 07/29 00:08; Admin Dose 10 MG; Start 07/28/16 at 14:30 Nifedipine (Procardia Xl) 60 mg BID PO Last administered on 07/30/16 10:03; Admin Dose 60 MG; Start 07/28/16 at 21:00 Hydralazine HCl (Apresoline) 25 mg TID PO Last administered on 07/30/16 10:03; Admin Dose 25 MG; Start 07/28/16 at 21:00 Diagnostic Test (Pha) 1 ea 1 ea 02 XX Last administered on 07/30/16 02:44; Admin Dose 1 EA; Start 07/29/16 at 02:00 Vancomycin HCl/ Sodium Chloride (Vancocin/NS) 150 ml @ 75 mls/hr ONCE IVPB Last administered on 07/30/16 11:59; Admin Dose 75 MLS/HR; Start 07/30/16 at 11: 00; Stop 07/30/16 at 18:00 Neomycin/ Polymyxin/ Hydrocortisone (Cortisporin Otic Susp) 4 drop TID LEFT EAR ; Start 07/30/16 at 21:00; Status UNV Magnesium Citrate (Citroma) 300 ml ONCE ONCE PO ; Start 07/30/16 at 14:00; Stop 07/30/16 at 14:01; Status UNV AJ ROMERO NP July 30, 2016 13:48
--- NOTE | 2016-07-30 14:08 | PN ---
DATE: SUBJECTIVE: The patient complains of pain in the left hip without any discharge, no itching, no [place] rtness of breath or chest pain, no cough. PHYSICAL EXAMINATION: GENERAL: The patient is in no acute distress. VITAL SIGNS: Temperature 97.7, blood pressure 139/65, respiratory 20 per minute, pulse ox ____. CHEST: Clinically clear. Mild pallor without cyanosis. HEART: S1, S2 heard. No murmurs or gallops. ABDOMEN: Soft, obese, nontender. EXTREMITIES: Left foot wrapped in dressing. IMPRESSION: 1. Left ankle cellulitis, status post puncture, aspiration of hematoma. 2. End-stage renal disease, on hemodialysis. 3. Diabetes mellitus type 2 ____. 4. Chronic anemia. 5. Mild otitis, left. PLAN: Will start the patient on Cortisporin eardrops. The patient also has been constipated for th e last 5 days. Will add magnesium citrate p.o. Consider cefazolin with hemodialysis since patient has MSSA if okay with ID. Dictated By: RENE ALBERTS MD, SR/LUZ Conf#: [id number] DID#: [id number]
[2016-07-30] MEDS ORDERED: MAGNESIUM CITRATE 300 ML BTL PO ONE (14:30)
[2016-07-30] MEDS: ATORVASTATIN 20 MG TAB PO SCH (20:56)
[2016-07-30] MEDS: NEOMYC/POLYMYX/HC 10 ML OTIC SUSP LEFT EAR SCH (21:13)
[2016-07-30] MEDS: INSULIN DETEMIR [LEVEMIR] 3ML CART SC SCH (21:24)
--- NOTE | 2016-07-30 21:37 | CONS ---
Date/Time of Note Date/Time of Note DATE: 07/30/16 TIME: 21:36 Assessment/Plan Assessment/Plan Chief Complaint/Hosp Course RENAL A/P FOOT WOUND w MSSA ESRD HTN DM ANEMIA CAD PLAN HD BP MEDS per id ancef ok Problems: Consultation Date/Type/Reason Admit Date/Time July 24, 2016 at 23:33 Type of Consultation: renal 24 HR Interval Summary Constitutional: no complaints Exam/Review of Systems Vital Signs Vitals Vital Signs Date Time Temp Pulse Resp B/P Pulse Ox O2 Delivery O2 Flow Rate FiO2 07/30/16 20:00 65 07/30/16 19:49 97.9 17 126/60 99 07/26/16 19:43 Intake and Output 07/29/16 07/29/16 07/30/16 15:00 23:00 07:00 Intake Total 500 ml 500 ml 400 ml Output Total 4000 ml 3500 ml Balance -3500 ml -3000 ml 400 ml Exam Neck: supple Respiratory: clear to auscultation Cardiovascular: regular rate and rhythm Gastrointestinal: soft Musculoskeletal: nl extremities to inspection Neurological: ASSORTMENT PLANNER II-XII intact Results Result Diagram: 07/28/1630 07/28/16 0530 Results 24 hrs Laboratory Tests Test 07/30/16 02:39 07/30/16 08:19 07/30/16 11:42 07/30/16 17:08 Bedside Glucose 215 132 162 167 Test 07/30/16 21:09 Bedside Glucose 180 Medications Medications Current Medications Ondansetron HCl (Zofran Inj) 4 mg Q6H PRN IV NAUSEA AND/OR VOMITING; Start 07/25 at 15:00 Acetaminophen (Tylenol Tab) 650 mg Q6H PRN PO PAIN LEVEL 1-3 OR FEVER; Start at 15:00 Acetaminophen/ Hydrocodone Bitart ([place] (5/325)) 1 tab Q6H PRN PO MODERATE PAIN LEVEL 4-6 Last administered on 07/30/16t 02:41; Admin Dose 1 TAB; Start 07/25 at 15:00 Docusate Sodium (Colace) 100 mg Q12H PRN PO CONSTIPATION; Start 07/25/16 at 15: 00 Magnesium Hydroxide (Milk Of Mag) 30 ml DAILY PRN PO CONSTIPATION; Start at 15:00 Zolpidem Tartrate (Ambien) 5 mg QHS PRN PO SLEEP; Start 07/25/16 at 15:00 Pantoprazole (Protonix Tab) 40 mg DAILY@06 PO Last administered on 07/30/16 06: 13; Admin Dose 40 MG; Start 07/26/16 at 06:00 Miscellaneous Information 1 ea NOTE XX ; Start 07/25/16 at 19:30 Glucose (Glutose) 15 gm Q15M PRN PO DECREASED GLUCOSE; Start 07/25/16 at 19:30 Glucose (Glutose) 22.5 gm Q15M PRN PO DECREASED GLUCOSE; Start 07/25/16 at 19:30 Dextrose (D50w Syringe) 25 ml Q15M PRN IV DECREASED GLUCOSE; Start 07/25/16 at 19:30 Dextrose (D50w Syringe) 50 ml Q15M PRN IV DECREASED GLUCOSE; Start 07/25/16 at 19:30 Glucagon (Glucagen) 1 mg Q15M PRN IM DECREASED GLUCOSE; Start 07/25/16 at 19:30 Glucose (Glutose) 15 gm Q15M PRN BUCCAL DECREASED GLUCOSE; Start 07/25/16 at 19: 30 Clonidine (Catapres) 0.1 mg Q4H PRN PO ELEVATED BLOOD PRESSURE Last administered on 07/28/16 12:31; Admin Dose 0.1 MG; Start 07/25/16 at 21:00 Aspirin (Ecotrin) 325 mg DAILY PO Last administered on 07/30/16 10:03; Admin Dose 325 MG; Start 07/26/16 at 09:00 Clopidogrel Bisulfate (plaVIX) 75 mg DAILY PO Last administered on 07/30/16 10: 03; Admin Dose 75 MG; Start 07/26/16 at 09:00 Atorvastatin Calcium (Lipitor) 20 mg HS PO Last administered on 07/30/16 20:56 ; Admin Dose 20 MG; Start 07/26/16 at 21:00 Losartan Potassium (Cozaar) 50 mg BID NGT Last administered on 07/30/16 21:11; Admin Dose 50 MG; Start 07/27/16 at 14:00 Clonidine HCl (Catapres-Tts 2 Patch) 1 patch Q7D TRANSDERM Last administered on 07/27/16 15:45; Admin Dose 1 PATCH; Start 07/27/16 at 15:00 Insulin Detemir (Levemir) 10 unit DAILY@20 SC Last administered on 07/30/16 21: 24; Admin Dose 10 UNIT; Start 07/27/16 at 20:00 Hydralazine HCl (Apresoline) 10 mg Q4H PRN IV SBP >170 Last administered on 07/29 00:08; Admin Dose 10 MG; Start 07/28/16 at 14:30 Nifedipine (Procardia Xl) 60 mg BID PO Last administered on 07/30/16 21:23; Admin Dose 60 MG; Start 07/28/16 at 21:00 Hydralazine HCl (Apresoline) 25 mg TID PO Last administered on 07/30/16 21:13; Admin Dose 25 MG; Start 07/28/16 at 21:00 Diagnostic Test (Pha) (Accu-Chek) 1 ea 02 XX Last administered on 07/30/16 02: 44; Admin Dose 1 EA; Start 07/29/16 at 02:00 Neomycin/ Polymyxin/ Hydrocortisone (Cortisporin Otic Susp) 4 drop TID LEFT EAR Last administered on 07/30/16 21:13; Admin Dose 4 DROP; Start 07/30/16 at 21:00 RC OLIVA MD July 30, 2016 21:37
[2016-07-31] VITALS (18 sets, daily range): BP systolic 101–147; BP diastolic 51–80; PULSE 50–69; RESP 17–20
[2016-07-31] MEDS: ACCU-CHEK XX SCH (02:35)
[2016-07-31] MEDS: PANTOPRAZOLE (EC) 40 MG TAB PO SCH (06:19)
[2016-07-31 07:36] LABS: ADD SCAN DIFF NO
[2016-07-31 07:42] LABS: BASOPHILS % 0.3 % (0.0-2.0); EOSINOPHILS # 0.2 10^3/ul (0.0-0.5); HEMATOCRIT 24.9 % (37.0-47.0); HEMOGLOBIN 7.6 g/dl (12.0-16.0); LYMPHOCYTES % 13.2 % (15.0-51.0); MEAN CORPUSCULAR HEMOGLOBIN 32.9 pg (29.0-33.0); MEAN CORPUSCULAR HGB CONC 30.5 g/dl (32.0-37.0); MEAN CORPUSCULAR VOLUME 107.8 fl (82.0-101.0); MEAN PLATELET VOLUME 9.7 fl (7.4-10.4); MONOCYTE # 0.4 10^3/ul (0.3-0.9); MONOCYTES % 5.1 % (0.0-11.0); NEUTROPHILS % 77.9 % (39.0-77.0); PLATELET COUNT 210 10^3/UL (140-415); RED BLOOD COUNT 2.31 10^6/ul (4.20-5.40); RED CELL DISTRIBUTION WIDTH 13.2 % (11.5-14.5); WHITE BLOOD COUNT 7.6 10^3/ul (4.8-10.8)
[2016-07-31 08:05] LABS: ALBUMIN 3.5 g/dl (3.3-4.9)
[2016-07-31 08:07] LABS: CREATININE 5.3 mg/dl (0.44-1.00)
[2016-07-31 08:08] LABS: ALBUMIN/GLOBULIN RATIO 0.89; CALCIUM 9.2 mg/dl (8.4-10.2); TOTAL PROTEIN 7.4 g/dl (6.1-8.1)
[2016-07-31] MEDS: INSULIN ASPART [NOVOLOG] 3 ML PEN SC SCH ×4 (09:04→22:57)
[2016-07-31] MEDS: NEOMYC/POLYMYX/HC 10 ML OTIC SUSP LEFT EAR SCH ×3 (10:00→22:54)
[2016-07-31] MEDS: CLOPIDOGREL 75 MG TAB PO SCH (10:01)
[2016-07-31] MEDS: ASPIRIN (EC) 325 MG TAB PO SCH (10:01)
[2016-07-31] MEDS: NIFEdipine (XL) 60 MG TAB PO SCH (10:01)
[2016-07-31] MEDS: LOSARTAN 50 MG TAB NGT SCH ×2 (10:02→22:54)
--- NOTE | 2016-07-31 13:25 | CONS ---
Date/Time of Note Date/Time of Note DATE: 07/31/16 TIME: 13:24 Assessment/Plan Assessment/Plan Chief Complaint/Hosp Course SUBJECTIVE: No acute changes. Alert, feels good, family at bedside, no fevers , nad MICROBIOLOGY: Left foot wound culture growing Staphylococcus aureus. ANTIMICROBIALS: IV vancomycin. PHYSICAL EXAMINATION: GENERAL: Well-developed, elderly woman who is awake, in no distress. HEENT: Head atraumatic, normocephalic. Sclerae anicteric. Buccal mucosa pink. NECK: Supple. CHEST: Rise symmetrical. Breath sounds clear. HEART: S1, S2. ABDOMEN: Soft, bowel tones present. EXTREMITIES: Left foot in a cast. ASSESSMENT: 1. Left ankle cellulitis with hematoma and Charcot, status post debridement with a puncture aspiration of hematoma. 2. End-stage renal disease, hemodialysis dependent. 3. Diabetes with diabetic neuropathy. 4. Anemia. 5. LSC permacath PLAN: The patient remains stable. Continue present care. Anticipate dc on IV Vanco or Ancef with HD for 4-6 weeks, f/u with Dr. Campbell op staff Problems: Consultation Date/Type/Reason Admit Date/Time July 24, 2016 at 23:33 Type of Consultation: ID Exam/Review of Systems Vital Signs Vitals Vital Signs Date Time Temp Pulse Resp B/P Pulse Ox O2 Delivery O2 Flow Rate FiO2 07/31/16 12:36 60 07/31/16 11:22 98.3 18 147/60 92 Intake and Output 07/30/16 07/30/16 07/31/16 15:00 23:00 07:00 Intake Total 400 ml 720 ml Balance 400 ml 720 ml Results Result Diagram: 07/31/16 0630 07/31/16 0630 Results 24 hrs Laboratory Tests Test 07/30/16 17:08 07/30/16 21:09 07/31/16 02:23 07/31/16 06:30 Bedside Glucose 167 180 150 White Blood Count 7.6 Red Blood Count 2.31 L Hemoglobin 7.6 L Hematocrit 24.9 L Mean Corpuscular Volume 107.8 H Mean Corpuscular Hemoglobin 32.9 Mean Corpuscular Hemoglobin Concent 30.5 L Red Cell Distribution Width 13.2 Platelet Count 210 Mean Platelet Volume 9.7 Neutrophils % 77.9 H Lymphocytes % 13.2 L Monocytes % 5.1 Eosinophils % 3.0 Basophils % 0.3 Nucleated Red Blood Cells % 0.0 Neutrophils # 6.0 Lymphocytes # 1.0 Monocytes # 0.4 Eosinophils # 0.2 Basophils # 0.0 Nucleated Red Blood Cells # 0.0 Sodium Level 138 Potassium Level 5.0 Chloride Level 95 L Carbon Dioxide Level 27 Anion Gap 21 H Blood Urea Nitrogen 51 H Creatinine 5.30 H Glucose Level 104 Calcium Level 9.2 Total Bilirubin 0.0 L Direct Bilirubin 0.00 Indirect Bilirubin 0.0 Aspartate Amino Transf (AST/SGOT) 18 Alanine Aminotransferase (ALT/SGPT) 24 Alkaline Phosphatase 80 Total Protein 7.4 Albumin 3.5 Globulin 3.90 H Albumin/Globulin Ratio 0.89 Test 07/31/16 08:04 07/31/16 12:28 Bedside Glucose 144 254 H Medications Medications Current Medications Ondansetron HCl (Zofran Inj) 4 mg Q6H PRN IV NAUSEA AND/OR VOMITING; Start 07/25 at 15:00 Acetaminophen (Tylenol Tab) 650 mg Q6H PRN PO PAIN LEVEL 1-3 OR FEVER; Start at 15:00 Acetaminophen/ Hydrocodone Bitart ([place] (5/325)) 1 tab Q6H PRN PO MODERATE PAIN LEVEL 4-6 Last administered on 07/30/16 02:41; Admin Dose 1 TAB; Start 07/25 at 15:00 Docusate Sodium (Colace) 100 mg Q12H PRN PO CONSTIPATION; Start 07/25/16 at 15: 00 Magnesium Hydroxide (Milk Of Mag) 30 ml DAILY PRN PO CONSTIPATION; Start at 15:00 Zolpidem Tartrate (Ambien) 5 mg QHS PRN PO SLEEP; Start 07/25/16 at 15:00 Pantoprazole (Protonix Tab) 40 mg DAILY@06 PO Last administered on 07/31/16 06 :19; Admin Dose 40 MG; Start 07/26/16 at 06:00 Miscellaneous Information 1 ea NOTE XX ; Start 07/25/16 at 19:30 Glucose (Glutose) 15 gm Q15M PRN PO DECREASED GLUCOSE; Start 07/25/16 at 19:30 Glucose (Glutose) 22.5 gm Q15M PRN PO DECREASED GLUCOSE; Start 07/25/16 at 19:30 Dextrose (D50w Syringe) 25 ml Q15M PRN IV DECREASED GLUCOSE; Start 07/25/16 at 19:30 Dextrose (D50w Syringe) 50 ml Q15M PRN IV DECREASED GLUCOSE; Start 07/25/16 at 19:30 Glucagon (Glucagen) 1 mg Q15M PRN IM DECREASED GLUCOSE; Start 07/25/16 at 19:30 Glucose (Glutose) 15 gm Q15M PRN BUCCAL DECREASED GLUCOSE; Start 07/25/16 at 19: 30 Clonidine (Catapres) 0.1 mg Q4H PRN PO ELEVATED BLOOD PRESSURE Last administered on 07/28/16 12:31; Admin Dose 0.1 MG; Start 07/25/16 at 21:00 Aspirin (Ecotrin) 325 mg DAILY PO Last administered on 07/31/16 10:01; Admin Dose 325 MG; Start 07/26/16 at 09:00 Clopidogrel Bisulfate (plaVIX) 75 mg DAILY PO Last administered on 07/31/16 10 :01; Admin Dose 75 MG; Start 07/26/16 at 09:00 Atorvastatin Calcium (Lipitor) 20 mg HS PO Last administered on 07/30/16 20:56 ; Admin Dose 20 MG; Start 07/26/16 at 21:00 Losartan Potassium (Cozaar) 50 mg BID NGT Last administered on 07/31/16 10:02 ; Admin Dose 50 MG; Start 07/27/16 at 14:00 Clonidine HCl (Catapres-Tts 2 Patch) 1 patch Q7D TRANSDERM Last administered on 07/27/16 15:45; Admin Dose 1 PATCH; Start 07/27/16 at 15:00 Insulin Detemir (Levemir) 10 unit DAILY@20 SC Last administered on 07/30/16 21: 24; Admin Dose 10 UNIT; Start 07/27/16 at 20:00 Hydralazine HCl (Apresoline) 10 mg Q4H PRN IV SBP >170 Last administered on 07/29 00:08; Admin Dose 10 MG; Start 07/28/16 at 14:30 Nifedipine (Procardia Xl) 60 mg BID PO Last administered on 07/31/16 10:01; Admin Dose 60 MG; Start 07/28/16 at 21:00 Hydralazine HCl (Apresoline) 25 mg TID PO Last administered on 07/31/16 10:01 ; Admin Dose 25 MG; Start 07/28/16 at 21:00 Diagnostic Test (Pha) (Accu-Chek) 1 ea 02 XX Last administered on 07/31/16 02: 35; Admin Dose 1 EA; Start 07/29/16 at 02:00 Neomycin/ Polymyxin/ Hydrocortisone (Cortisporin Otic Susp) 4 drop TID LEFT EAR Last administered on 07/31/16 10:00; Admin Dose 4 DROP; Start 07/30/16 at 21: 00 AJ ROMERO NP July 31, 2016 13:25
[2016-07-31] MEDS ORDERED: CEFAZOLIN 2 GM/50 ML (PMX) 50 ML IVPB SCH (14:00)
--- NOTE | 2016-07-31 14:11 | PN ---
DATE: SUBJECTIVE: The patient has less pain in her left ear. No discharge from the left ear. Minimal pa in left foot. PHYSICAL EXAMINATION: GENERAL: The patient is awake, alert. VITAL SIGNS: Afebrile, temperature 98.3, blood pressure 147/60, O2 saturation 92% on room air. HEENT: Head normocephalic. Mild pallor without cyanosis. CHEST: Clinically clear. HEART: S1, S2 heard with no definite gallops. EXTREMITIES: No edema. Homans sign is negative. LABORATORY DATA: WBC count is 7.6, hematocrit 24.9. Sodium 138, potassium 5, BUN 51, creatinine 5. 3, glucose 144, 254. IMPRESSION: 1. Left ankle cellulitis, status post puncture aspiration of hematoma, methicillin-sensitive Staphy lococcus aureus infection. 2. End-stage renal disease on hemodialysis. 3. Diabetes type 2. 4. Chronic anemia. Case discussed with Ms. Varsha GalloSumijudy. We will discontinue vancomycin and start the patient on c efazolin after dialysis. I have discussed the case with Dr. Thomas Miller as well. We will initiate discharge planning. Dictated By: RENE ALBERTS MD, SR/NTS Conf#: [id number] DID#: [id number]
[2016-07-31] MEDS: ATORVASTATIN 20 MG TAB PO SCH (22:53)
[2016-07-31] MEDS: INSULIN DETEMIR [LEVEMIR] 3ML CART SC SCH (22:56)
--- NOTE | 2016-07-31 22:58 | CONS ---
DATE OF ADMISSION: 07/24/2016 DATE OF CONSULTATION: 07/31/2016 SUBJECTIVE FINDINGS: The patient is being followed for left foot and ankle cellulitis, Charcot defo rmity. The patient with MSSA infection to the left ankle, status post puncture aspiration. The pat ient pending discharge. Recommended antibiotics for 4 to 6 weeks. The patient without any acute ch anges, tolerating dialysis well. PHYSICAL EXAMINATION: VITAL SIGNS: Temperature 98.3, pulse is 69, respiratory rate 19, blood pressure 127/59, pulse oxime try 95. GENERAL: The patient is sleepy, no acute distress. HEAD: Normocephalic. EXTREMITIES: Cast off lower extremity. Toes without cyanosis. Capillary refill time normal. Ther e is no edema of calf noted. ASSESSMENT: 1. Left ankle cellulitis. 2. Methicillin-sensitive Staph aureus. 3. Charcot deformity, left ankle. 4. Post-fusion status. 5. End-stage renal disease, on hemodialysis. 6. Diabetes type 2 with peripheral neuropathy. 7. Chronic anemia. PLAN: The patient seen and evaluated. Less pain noted with the cast immobilization. The patient t olerating antibiotics. Appreciate ID recommendations. Four to 6 weeks of cefazolin following dialy sis. We will follow up as an outpatient. Dictated By: MALIK JIMENEZ/LUZ Conf#: [id number] DID#: [id number]
--- NOTE | 2016-07-31 23:56 | CONS ---
Date/Time of Note Date/Time of Note DATE: 07/31/16 TIME: 23:55 Assessment/Plan Assessment/Plan Chief Complaint/Hosp Course RENAL A/P FOOT WOUND w MSSA ESRD HTN DM ANEMIA CAD PLAN HD BP MEDS per id hd Problems: Consultation Date/Type/Reason Admit Date/Time July 24, 2016 at 23:33 Type of Consultation: renal 24 HR Interval Summary Constitutional: no complaints Exam/Review of Systems Vital Signs Vitals Vital Signs Date Time Temp Pulse Resp B/P Pulse Ox O2 Delivery O2 Flow Rate FiO2 07/31/16 20:01 69 07/31/16 20:00 98.3 19 127/59 95 Intake and Output 07/30/16 07/30/16 07/31/16 15:00 23:00 07:00 Intake Total 400 ml 720 ml Balance 400 ml 720 ml Exam Neck: supple Respiratory: clear to auscultation Cardiovascular: regular rate and rhythm Gastrointestinal: soft Results Result Diagram: 07/31/16 0630 07/31/16 0630 Results 24 hrs Laboratory Tests Test 07/31/16 02:23 07/31/16 06:30 07/31/16 08:04 07/31/16 12:28 Bedside Glucose 150 144 254 H White Blood Count 7.6 Red Blood Count 2.31 L Hemoglobin 7.6 L Hematocrit 24.9 L Mean Corpuscular Volume 107.8 H Mean Corpuscular Hemoglobin 32.9 Mean Corpuscular Hemoglobin Concent 30.5 L Red Cell Distribution Width 13.2 Platelet Count 210 Mean Platelet Volume 9.7 Neutrophils % 77.9 H Lymphocytes % 13.2 L Monocytes % 5.1 Eosinophils % 3.0 Basophils % 0.3 Nucleated Red Blood Cells % 0.0 Neutrophils # 6.0 Lymphocytes # 1.0 Monocytes # 0.4 Eosinophils # 0.2 Basophils # 0.0 Nucleated Red Blood Cells # 0.0 Sodium Level 138 Potassium Level 5.0 Chloride Level 95 L Carbon Dioxide Level 27 Anion Gap 21 H Blood Urea Nitrogen 51 H Creatinine 5.30 H Glucose Level 104 Calcium Level 9.2 Total Bilirubin 0.0 L Direct Bilirubin 0.00 Indirect Bilirubin 0.0 Aspartate Amino Transf (AST/SGOT) 18 Alanine Aminotransferase (ALT/SGPT) 24 Alkaline Phosphatase 80 Total Protein 7.4 Albumin 3.5 Globulin 3.90 H Albumin/Globulin Ratio 0.89 Test 07/31/16 17:15 07/31/16 22:49 Bedside Glucose 118 208 Medications Medications Current Medications Ondansetron HCl (Zofran Inj) 4 mg Q6H PRN IV NAUSEA AND/OR VOMITING; Start 07/25 at 15:00 Acetaminophen (Tylenol Tab) 650 mg Q6H PRN PO PAIN LEVEL 1-3 OR FEVER; Start at 15:00 Acetaminophen/ Hydrocodone Bitart ([place] (5/325)) 1 tab Q6H PRN PO MODERATE PAIN LEVEL 4-6 Last administered on 07/30/16 02:41; Admin Dose 1 TAB; Start 07/25 at 15:00 Docusate Sodium (Colace) 100 mg Q12H PRN PO CONSTIPATION; Start 07/25/16 at 15: 00 Magnesium Hydroxide (Milk Of Mag) 30 ml DAILY PRN PO CONSTIPATION; Start at 15:00 Zolpidem Tartrate (Ambien) 5 mg QHS PRN PO SLEEP; Start 07/25/16 at 15:00 Pantoprazole (Protonix Tab) 40 mg DAILY@06 PO Last administered on 07/31/16 06 :19; Admin Dose 40 MG; Start 07/26/16 at 06:00 Miscellaneous Information 1 ea NOTE XX ; Start 07/25/16 at 19:30 Glucose (Glutose) 15 gm Q15M PRN PO DECREASED GLUCOSE; Start 07/25/16 at 19:30 Glucose (Glutose) 22.5 gm Q15M PRN PO DECREASED GLUCOSE; Start 07/25/16 at 19:30 Dextrose (D50w Syringe) 25 ml Q15M PRN IV DECREASED GLUCOSE; Start 07/25/16 at 19:30 Dextrose (D50w Syringe) 50 ml Q15M PRN IV DECREASED GLUCOSE; Start 07/25/16 at 19:30 Glucagon (Glucagen) 1 mg Q15M PRN IM DECREASED GLUCOSE; Start 07/25/16 at 19:30 Glucose (Glutose) 15 gm Q15M PRN BUCCAL DECREASED GLUCOSE; Start 07/25/16 at 19: 30 Clonidine (Catapres) 0.1 mg Q4H PRN PO ELEVATED BLOOD PRESSURE Last administered on 07/28/16 12:31; Admin Dose 0.1 MG; Start 07/25/16 at 21:00 Aspirin (Ecotrin) 325 mg DAILY PO Last administered on 07/31/16 10:01; Admin Dose 325 MG; Start 07/26/16 at 09:00 Clopidogrel Bisulfate (plaVIX) 75 mg DAILY PO Last administered on 07/31/16 10 :01; Admin Dose 75 MG; Start 07/26/16 at 09:00 Atorvastatin Calcium (Lipitor) 20 mg HS PO Last administered on 07/31/16 22:53 ; Admin Dose 20 MG; Start 07/26/16 at 21:00 Losartan Potassium (Cozaar) 50 mg BID NGT Last administered on 07/31/16 22:54 ; Admin Dose 50 MG; Start 07/27/16 at 14:00 Clonidine HCl (Catapres-Tts 2 Patch) 1 patch Q7D TRANSDERM Last administered on 07/27/16 15:45; Admin Dose 1 PATCH; Start 07/27/16 at 15:00 Insulin Detemir (Levemir) 10 unit DAILY@20 SC Last administered on 07/31/16 22 :56; Admin Dose 10 UNIT; Start 07/27/16 at 20:00 Hydralazine HCl (Apresoline) 10 mg Q4H PRN IV SBP >170 Last administered on 07/29 00:08; Admin Dose 10 MG; Start 07/28/16 at 14:30 Nifedipine (Procardia Xl) 60 mg BID PO Last administered on 07/31/16 10:01; Admin Dose 60 MG; Start 07/28/16 at 21:00 Hydralazine HCl (Apresoline) 25 mg TID PO Last administered on 07/31/16 22:54 ; Admin Dose 25 MG; Start 07/28/16 at 21:00 Diagnostic Test (Pha) (Accu-Chek) 1 ea 02 XX Last administered on 07/31/16 02: 35; Admin Dose 1 EA; Start 07/29/16 at 02:00 Neomycin/ Polymyxin/ Hydrocortisone (Cortisporin Otic Susp) 4 drop TID LEFT EAR Last administered on 07/31/16 22:54; Admin Dose 4 DROP; Start 07/30/16 at 21: 00 RC OLIVA MD July 31, 2016 23:56
[2016-08-01] VITALS (12 sets, daily range): BP systolic 121–144; BP diastolic 56–82; PULSE 56–71; RESP 16–19
[2016-08-01] MEDS: NIFEdipine (XL) 60 MG TAB PO SCH ×3 (02:19→20:36)
[2016-08-01] MEDS: ACCU-CHEK XX SCH (02:20)
[2016-08-01] MEDS: PANTOPRAZOLE (EC) 40 MG TAB PO SCH (06:09)
[2016-08-01] MEDS: ASPIRIN (EC) 325 MG TAB PO SCH (09:21)
[2016-08-01] MEDS: LOSARTAN 50 MG TAB NGT SCH ×2 (09:21→20:36)
[2016-08-01] MEDS: INSULIN ASPART [NOVOLOG] 3 ML PEN SC SCH ×4 (09:21→20:39)
[2016-08-01] MEDS: HYDROCODONE/APAP (5/325) TAB PO PRN (09:21)
[2016-08-01] MEDS: CLOPIDOGREL 75 MG TAB PO SCH (09:21)
[2016-08-01] MEDS: NEOMYC/POLYMYX/HC 10 ML OTIC SUSP LEFT EAR SCH ×3 (09:22→20:36)
--- NOTE | 2016-08-01 09:49 | PN ---
Date/Time of Note Date/Time of Note DATE: 08/01/16 TIME: 09:40 Assessment/Plan VTE Prophylaxis VTE Prophylaxis Intervention: other (Continue LE elevation.) Lines/Catheters IV Catheter Type (from Nrsg): Peripheral IV Urinary Cath still in place: No Assessment/Plan Chief Complaint/Hosp Course Pt with h/o left Charcot, left foot ulceration, infection and hematoma. S/P Sx debridement and aspiration. In cast. Pain level 4/10, controlled with PO pain meds. Stable, will monitor. Problems: Subjective 24 Hr Interval Summary Free Text/Dictation Coverage for Dr. Campbell. Pt with h/o left Charcot, left foot ulceration, infection and hematoma. S/P Sx debridement and aspiration. In cast. Pain level 4/10, controlled with PO pain meds. Exam/Review of Systems Vital Signs Vitals Vital Signs Date Time Temp Pulse Resp B/P Pulse Ox O2 Delivery O2 Flow Rate FiO2 08/01/16 08:38 70 08/01/16 07:34 98.3 16 122/60 96 Intake and Output 07/31/16 07/31/16 08/01/16 15:00 23:00 07:00 Intake Total 300 ml 780 ml Output Total 3300 ml 100 ml Balance -3000 ml 680 ml Exam Left LE in cast. Cast is dry, clean and intact. No malodor from cast. S/P left ankle Sx debridement. Stable. Extremities: other (Lt Charcot. In cast.) Results Result Diagram: 07/31/16 0630 07/31/16 0630 Results 24 hrs Laboratory Tests Test 07/31/16 12:28 07/31/16 17:15 07/31/16 22:49 08/01/16 02:22 Bedside Glucose 254 H 118 208 275 H Test 08/01/16 08:48 Bedside Glucose 152 Medications Medications Current Medications Ondansetron HCl (Zofran Inj) 4 mg Q6H PRN IV NAUSEA AND/OR VOMITING; Start 07/25 at 15:00 Acetaminophen (Tylenol Tab) 650 mg Q6H PRN PO PAIN LEVEL 1-3 OR FEVER; Start at 15:00 Acetaminophen/ Hydrocodone Bitart ([place] (5/325)) 1 tab Q6H PRN PO MODERATE PAIN LEVEL 4-6 Last administered on 08/01/16 09:21; Admin Dose 1 TAB; Start 07/25/16 at 15:00 Docusate Sodium (Colace) 100 mg Q12H PRN PO CONSTIPATION Last administered on 09:21; Admin Dose 100 MG; Start 07/25/16 at 15:00 Magnesium Hydroxide (Milk Of Mag) 30 ml DAILY PRN PO CONSTIPATION; Start at 15:00 Zolpidem Tartrate (Ambien) 5 mg QHS PRN PO SLEEP; Start 07/25/16 at 15:00 Pantoprazole (Protonix Tab) 40 mg DAILY@06 PO Last administered on 08/01/16 06 :09; Admin Dose 40 MG; Start 07/26/16 at 06:00 Miscellaneous Information 1 ea NOTE XX ; Start 07/25/16 at 19:30 Glucose (Glutose) 15 gm Q15M PRN PO DECREASED GLUCOSE; Start 07/25/16 at 19:30 Glucose (Glutose) 22.5 gm Q15M PRN PO DECREASED GLUCOSE; Start 07/25/16 at 19:30 Dextrose (D50w Syringe) 25 ml Q15M PRN IV DECREASED GLUCOSE; Start 07/25/16 at 19:30 Dextrose (D50w Syringe) 50 ml Q15M PRN IV DECREASED GLUCOSE; Start 07/25/16 at 19:30 Glucagon (Glucagen) 1 mg Q15M PRN IM DECREASED GLUCOSE; Start 07/25/16 at 19:30 Glucose (Glutose) 15 gm Q15M PRN BUCCAL DECREASED GLUCOSE; Start 07/25/16 at 19: 30 Clonidine (Catapres) 0.1 mg Q4H PRN PO ELEVATED BLOOD PRESSURE Last administered on 07/28/16 12:31; Admin Dose 0.1 MG; Start 07/25/16 at 21:00 Aspirin (Ecotrin) 325 mg DAILY PO Last administered on 08/01/16 09:21; Admin Dose 325 MG; Start 07/26/16 at 09:00 Clopidogrel Bisulfate (plaVIX) 75 mg DAILY PO Last administered on 08/01/16 09 :21; Admin Dose 75 MG; Start 07/26/16 at 09:00 Atorvastatin Calcium (Lipitor) 20 mg HS PO Last administered on 07/31/16 22:53 ; Admin Dose 20 MG; Start 07/26/16 at 21:00 Losartan Potassium (Cozaar) 50 mg BID NGT Last administered on 08/01/16 09:21 ; Admin Dose 50 MG; Start 07/27/16 at 14:00 Clonidine HCl (Catapres-Tts 2 Patch) 1 patch Q7D TRANSDERM Last administered on 07/27/16 15:45; Admin Dose 1 PATCH; Start 07/27/16 at 15:00 Insulin Detemir (Levemir) 10 unit DAILY@20 SC Last administered on 07/31/16 22 :56; Admin Dose 10 UNIT; Start 07/27/16 at 20:00 Hydralazine HCl (Apresoline) 10 mg Q4H PRN IV SBP >170 Last administered on 07/29 00:08; Admin Dose 10 MG; Start 07/28/16 at 14:30 Nifedipine (Procardia Xl) 60 mg BID PO Last administered on 08/01/16 09:21; Admin Dose 60 MG; Start 07/28/16 at 21:00 Hydralazine HCl (Apresoline) 25 mg TID PO Last administered on 08/01/16 09:22 ; Admin Dose 25 MG; Start 07/28/16 at 21:00 Diagnostic Test (Pha) (Accu-Chek) 1 ea 02 XX Last administered on 08/01/16 02: 20; Admin Dose 1 EA; Start 07/29/16 at 02:00 Neomycin/ Polymyxin/ Hydrocortisone (Cortisporin Otic Susp) 4 drop TID LEFT EAR Last administered on 08/01/16 09:22; Admin Dose 4 DROP; Start 07/30/16 at 21: 00 JERRY BOYLE DPM August 01, 2016 09:49
--- NOTE | 2016-08-01 09:53 | PN ---
DATE: SUBJECTIVE: The patient has no pain left ear. Complains of moderate pain in the left foot. OBJECTIVE: VITAL SIGNS: Temperature 98.3, blood pressure 122/60, O2 saturation 96% on room air. HEENT: Moderate pallor without cyanosis. CHEST: Clear. EXTREMITIES: Right lower extremity no edema. Left lower extremity in a cast. Discussed with the patient regarding her living conditions. The patient has a spouse who is apparen tly ill. She has a caregiver who comes for a few hours and lives in an apartment. IMPRESSION: 1. Left ankle cellulitis, status post puncture aspiration of hematoma with methicillin-sensitive St aphylococcus aureus infection. 2. End-stage renal disease, on hemodialysis. 3. Diabetes type 2. 4. Chronic anemia. PLAN: We will continue present management. We will request social service evaluation regarding dis charge planning in view of her living situation and then arrange discharge. Dictated By: RENE ALBERTS MD, SR/LUZ Conf#: [id number] DID#: [id number]
--- NOTE | 2016-08-01 16:09 | CONS ---
Date/Time of Note Date/Time of Note DATE: 08/01/16 TIME: 16:08 Assessment/Plan Assessment/Plan Chief Complaint/Hosp Course RENAL A/P FOOT WOUND w MSSA ESRD HTN DM ANEMIA CAD PLAN HD BP MEDS per id hd AM Problems: Consultation Date/Type/Reason Admit Date/Time July 24, 2016 at 23:33 Type of Consultation: renal 24 HR Interval Summary Constitutional: no complaints Exam/Review of Systems Vital Signs Vitals Vital Signs Date Time Temp Pulse Resp B/P Pulse Ox O2 Delivery O2 Flow Rate FiO2 08/01/16 16:05 64 08/01/16 15:45 97.8 16 121/57 97 Intake and Output 07/31/16 07/31/16 08/01/16 15:00 23:00 07:00 Intake Total 300 ml 780 ml Output Total 3300 ml 100 ml Balance -3000 ml 680 ml Exam Neck: supple Respiratory: clear to auscultation Cardiovascular: regular rate and rhythm Gastrointestinal: soft Musculoskeletal: nl extremities to inspection Extremities: normal pulses Results Result Diagram: 07/31/16 0630 07/31/16 0630 Results 24 hrs Laboratory Tests Test 07/31/16 17:15 07/31/16 22:49 08/01/16 02:22 08/01/16 08:48 Bedside Glucose 118 208 275 H 152 Test 08/01/16 11:52 Bedside Glucose 200 Medications Medications Current Medications Ondansetron HCl (Zofran Inj) 4 mg Q6H PRN IV NAUSEA AND/OR VOMITING; Start 07/25 at 15:00 Acetaminophen (Tylenol Tab) 650 mg Q6H PRN PO PAIN LEVEL 1-3 OR FEVER; Start at 15:00 Acetaminophen/ Hydrocodone Bitart ([place] (5/325)) 1 tab Q6H PRN PO MODERATE PAIN LEVEL 4-6 Last administered on 08/01/16 09:21; Admin Dose 1 TAB; Start 07/25/16 at 15:00 Docusate Sodium (Colace) 100 mg Q12H PRN PO CONSTIPATION Last administered on 09:21; Admin Dose 100 MG; Start 07/25/16 at 15:00 Magnesium Hydroxide (Milk Of Mag) 30 ml DAILY PRN PO CONSTIPATION; Start at 15:00 Zolpidem Tartrate (Ambien) 5 mg QHS PRN PO SLEEP; Start 07/25/16 at 15:00 Pantoprazole (Protonix Tab) 40 mg DAILY@06 PO Last administered on 08/01/16 06 :09; Admin Dose 40 MG; Start 07/26/16 at 06:00 Miscellaneous Information 1 ea NOTE XX ; Start 07/25/16 at 19:30 Glucose (Glutose) 15 gm Q15M PRN PO DECREASED GLUCOSE; Start 07/25/16 at 19:30 Glucose (Glutose) 22.5 gm Q15M PRN PO DECREASED GLUCOSE; Start 07/25/16 at 19:30 Dextrose (D50w Syringe) 25 ml Q15M PRN IV DECREASED GLUCOSE; Start 07/25/16 at 19:30 Dextrose (D50w Syringe) 50 ml Q15M PRN IV DECREASED GLUCOSE; Start 07/25/16 at 19:30 Glucagon (Glucagen) 1 mg Q15M PRN IM DECREASED GLUCOSE; Start 07/25/16 at 19:30 Glucose (Glutose) 15 gm Q15M PRN BUCCAL DECREASED GLUCOSE; Start 07/25/16 at 19: 30 Clonidine (Catapres) 0.1 mg Q4H PRN PO ELEVATED BLOOD PRESSURE Last administered on 07/28/16 12:31; Admin Dose 0.1 MG; Start 07/25/16 at 21:00 Aspirin (Ecotrin) 325 mg DAILY PO Last administered on 08/01/16 09:21; Admin Dose 325 MG; Start 07/26/16 at 09:00 Clopidogrel Bisulfate (plaVIX) 75 mg DAILY PO Last administered on 08/01/16 09 :21; Admin Dose 75 MG; Start 07/26/16 at 09:00 Atorvastatin Calcium (Lipitor) 20 mg HS PO Last administered on 07/31/16 22:53 ; Admin Dose 20 MG; Start 07/26/16 at 21:00 Losartan Potassium (Cozaar) 50 mg BID NGT Last administered on 08/01/16 09:21 ; Admin Dose 50 MG; Start 07/27/16 at 14:00 Clonidine HCl (Catapres-Tts 2 Patch) 1 patch Q7D TRANSDERM Last administered on 07/27/16 15:45; Admin Dose 1 PATCH; Start 07/27/16 at 15:00 Insulin Detemir (Levemir) 10 unit DAILY@20 SC Last administered on 07/31/16 22 :56; Admin Dose 10 UNIT; Start 07/27/16 at 20:00 Hydralazine HCl (Apresoline) 10 mg Q4H PRN IV SBP >170 Last administered on 07/29 00:08; Admin Dose 10 MG; Start 07/28/16 at 14:30 Nifedipine (Procardia Xl) 60 mg BID PO Last administered on 08/01/16 09:21; Admin Dose 60 MG; Start 07/28/16 at 21:00 Hydralazine HCl (Apresoline) 25 mg TID PO Last administered on 08/01/16 12:19 ; Admin Dose 25 MG; Start 07/28/16 at 21:00 Diagnostic Test (Pha) (Accu-Chek) 1 ea 02 XX Last administered on 08/01/16 02: 20; Admin Dose 1 EA; Start 07/29/16 at 02:00 Neomycin/ Polymyxin/ Hydrocortisone (Cortisporin Otic Susp) 4 drop TID LEFT EAR Last administered on 08/01/16 12:19; Admin Dose 4 DROP; Start 07/30/16 at 21: 00 RC OLIVA MD August 01, 2016 16:09
[2016-08-01] MEDS: ATORVASTATIN 20 MG TAB PO SCH (20:36)
[2016-08-01] MEDS: INSULIN DETEMIR [LEVEMIR] 3ML CART SC SCH (20:40)
[2016-08-02] VITALS (22 sets, daily range): BP systolic 95–144; BP diastolic 51–68; PULSE 59–74; RESP 15–20
[2016-08-02] MEDS: ACCU-CHEK XX SCH (01:09)
[2016-08-02] MEDS: PANTOPRAZOLE (EC) 40 MG TAB PO SCH (06:21)
[2016-08-02] MEDS: INSULIN ASPART [NOVOLOG] 3 ML PEN SC SCH ×4 (08:57→21:22)
[2016-08-02] MEDS: CLOPIDOGREL 75 MG TAB PO SCH (09:00)
[2016-08-02] MEDS: NEOMYC/POLYMYX/HC 10 ML OTIC SUSP LEFT EAR SCH ×3 (09:00→21:18)
[2016-08-02] MEDS: ASPIRIN (EC) 325 MG TAB PO SCH (09:04)
[2016-08-02] MEDS: NIFEdipine (XL) 60 MG TAB PO SCH ×2 (12:11→21:18)
[2016-08-02] MEDS: LOSARTAN 50 MG TAB NGT SCH ×2 (12:16→21:19)
[2016-08-02] MEDS: HYDROCODONE/APAP (5/325) TAB PO PRN (12:24)
--- NOTE | 2016-08-02 16:16 | CONS ---
Date/Time of Note Date/Time of Note DATE: 08/02/16 TIME: 16:15 Assessment/Plan Assessment/Plan Chief Complaint/Hosp Course 1. End-stage renal disease. 2. Hypertension. 3. Diabetes mellitus. 4. GERD. 5. Dyslipidemia. 6. Anemia.HB 7.6 today blood transfusion ordered, spoke to pt 7. Left ankle fracture. 8. The patient has a history of CAD. 9. Atherosclerotic heart disease. 10. The patient also has a history of PVD. 11. History of coronary artery bypass graft. 12. Patient had a Lexiscan done in the past. 13. Also angiogram done in the past. Problems: Additional Assessment/Plan 1. Kidney function optimization 2. Blood transfusion 3. Inform primary MD Consultation Date/Type/Reason Admit Date/Time July 24, 2016 at 23:33 Initial Consult Date 07/26/2016 Type of Consultation: renal Reason for Consultation dr Miller 24 HR Interval Summary Constitutional: no complaints Exam/Review of Systems Vital Signs Vitals Vital Signs Date Time Temp Pulse Resp B/P Pulse Ox O2 Delivery O2 Flow Rate FiO2 08/02/16 16:05 66 08/02/16 16:02 98.0 18 129/60 96 Intake and Output 08/01/16 08/01/16 08/02/16 15:00 23:00 07:00 Intake Total 700 ml 240 ml Output Total 200 ml 400 ml Balance 500 ml -160 ml Exam Constitutional: alert, oriented Psych: no complaints Eyes: nl conjunctiva ENMT: nl external ears & nose Neck: supple Results Result Diagram: 07/31/16 0630 07/31/16 0630 Results 24 hrs Laboratory Tests Test 08/01/16 17:31 08/01/16 20:38 08/02/16 08:10 08/02/16 12:09 Bedside Glucose 107 150 142 151 Medications Medications Current Medications Ondansetron HCl (Zofran Inj) 4 mg Q6H PRN IV NAUSEA AND/OR VOMITING; Start 07/25 at 15:00 Acetaminophen (Tylenol Tab) 650 mg Q6H PRN PO PAIN LEVEL 1-3 OR FEVER; Start at 15:00 Acetaminophen/ Hydrocodone Bitart ([place] (5/325)) 1 tab Q6H PRN PO MODERATE PAIN LEVEL 4-6 Last administered on 08/02/16t 12:24; Admin Dose 1 TAB; Start 07/25/16 at 15:00 Docusate Sodium (Colace) 100 mg Q12H PRN PO CONSTIPATION Last administered on 09:21; Admin Dose 100 MG; Start 07/25/16 at 15:00 Magnesium Hydroxide (Milk Of Mag) 30 ml DAILY PRN PO CONSTIPATION; Start at 15:00 Zolpidem Tartrate (Ambien) 5 mg QHS PRN PO SLEEP; Start 07/25/16 at 15:00 Pantoprazole (Protonix Tab) 40 mg DAILY@06 PO Last administered on 08/02/16 06 :21; Admin Dose 40 MG; Start 07/26/16 at 06:00 Miscellaneous Information 1 ea NOTE XX ; Start 07/25/16 at 19:30 Glucose (Glutose) 15 gm Q15M PRN PO DECREASED GLUCOSE; Start 07/25/16 at 19:30 Glucose (Glutose) 22.5 gm Q15M PRN PO DECREASED GLUCOSE; Start 07/25/16 at 19:30 Dextrose (D50w Syringe) 25 ml Q15M PRN IV DECREASED GLUCOSE; Start 07/25/16 at 19:30 Dextrose (D50w Syringe) 50 ml Q15M PRN IV DECREASED GLUCOSE; Start 07/25/16 at 19:30 Glucagon (Glucagen) 1 mg Q15M PRN IM DECREASED GLUCOSE; Start 07/25/16 at 19:30 Glucose (Glutose) 15 gm Q15M PRN BUCCAL DECREASED GLUCOSE; Start 07/25/16 at 19: 30 Clonidine (Catapres) 0.1 mg Q4H PRN PO ELEVATED BLOOD PRESSURE Last administered on 07/28/16 12:31; Admin Dose 0.1 MG; Start 07/25/16 at 21:00 Aspirin (Ecotrin) 325 mg DAILY PO Last administered on 08/02/16 09:04; Admin Dose 325 MG; Start 07/26/16 at 09:00 Clopidogrel Bisulfate (plaVIX) 75 mg DAILY PO Last administered on 08/02/16 09 :00; Admin Dose 75 MG; Start 07/26/16 at 09:00 Atorvastatin Calcium (Lipitor) 20 mg HS PO Last administered on 08/01/16 20:36 ; Admin Dose 20 MG; Start 07/26/16 at 21:00 Losartan Potassium (Cozaar) 50 mg BID NGT Last administered on 08/02/16 12:16 ; Admin Dose 50 MG; Start 07/27/16 at 14:00 Clonidine HCl (Catapres-Tts 2 Patch) 1 patch Q7D TRANSDERM Last administered on 07/27/16 15:45; Admin Dose 1 PATCH; Start 07/27/16 at 15:00 Insulin Detemir (Levemir) 10 unit DAILY@20 SC Last administered on 08/01/16 20 :40; Admin Dose 10 UNIT; Start 07/27/16 at 20:00 Hydralazine HCl (Apresoline) 10 mg Q4H PRN IV SBP >170 Last administered on 07/29 00:08; Admin Dose 10 MG; Start 07/28/16 at 14:30 Nifedipine (Procardia Xl) 60 mg BID PO Last administered on 08/02/16 12:11; Admin Dose 60 MG; Start 07/28/16 at 21:00 Hydralazine HCl (Apresoline) 25 mg TID PO Last administered on 08/02/16 12:12 ; Admin Dose 25 MG; Start 07/28/16 at 21:00 Diagnostic Test (Pha) (Accu-Chek) 1 ea 02 XX Last administered on 08/01/16 02: 20; Admin Dose 1 EA; Start 07/29/16 at 02:00 Neomycin/ Polymyxin/ Hydrocortisone (Cortisporin Otic Susp) 4 drop TID LEFT EAR Last administered on 08/02/16 12:12; Admin Dose 4 DROP; Start 07/30/16 at 21: 00 HERON NATHAN August 02, 2016 16:16
[2016-08-02 17:24] LABS: POTASSIUM 4.3 mmol/L (3.5-5.1)
[2016-08-02 17:26] LABS: CREATININE 3.37 mg/dl (0.44-1.00)
[2016-08-02 17:27] LABS: CALCIUM 9.2 mg/dl (8.4-10.2)
[2016-08-02 18:05] LABS: ADD SCAN DIFF NO
[2016-08-02 18:06] LABS: BASOPHILS % 0.8 % (0.0-2.0); EOSINOPHILS # 0.2 10^3/ul (0.0-0.5); EOSINOPHILS % 3.3 % (0.0-7.0); HEMATOCRIT 26.7 % (37.0-47.0); HEMOGLOBIN 8.3 g/dl (12.0-16.0); LYMPHOCYTES # 0.8 10^3/ul (0.8-2.9); LYMPHOCYTES % 14.4 % (15.0-51.0); MEAN CORPUSCULAR HEMOGLOBIN 33.7 pg (29.0-33.0); MEAN CORPUSCULAR HGB CONC 31.1 g/dl (32.0-37.0); MEAN CORPUSCULAR VOLUME 108.5 fl (82.0-101.0); MEAN PLATELET VOLUME 9.6 fl (7.4-10.4); MONOCYTE # 0.4 10^3/ul (0.3-0.9); MONOCYTES % 7.3 % (0.0-11.0); NEUTROPHIL # 3.8 10^3/ul (1.6-7.5); NEUTROPHILS % 73.8 % (39.0-77.0); PLATELET COUNT 239 10^3/UL (140-415); RED BLOOD COUNT 2.46 10^6/ul (4.20-5.40); RED CELL DISTRIBUTION WIDTH 12.8 % (11.5-14.5); WHITE BLOOD COUNT 5.2 10^3/ul (4.8-10.8)
--- NOTE | 2016-08-02 21:16 | PN ---
DATE: SUBJECTIVE: The patient overall feels weak. Denies any chest pain or shortness of breath. PHYSICAL EXAMINATION: GENERAL: The patient is awake, alert, afebrile. LUNGS: Clinically clear. HEART: S1, S2 with no definite gallops. EXTREMITIES: No edema. IMPRESSION: 1. Status post left ankle cellulitis, status post puncture aspiration of hematoma with methicillin- resistant Staphylococcus aureus. 2. End-stage renal disease, on hemodialysis. 3. Diabetes mellitus type 2. 4. Chronic anemia. Patient has been ordered 1 unit of RBC transfusion by student services vice president. Discharge planning underway for a convalescent home, and will continue Ancef along with dialysis. Dictated By: RENE ALBERTS MD, SR/LUZ Conf#: [id number] DID#: [id number]
[2016-08-02] MEDS: ATORVASTATIN 20 MG TAB PO SCH (21:18)
[2016-08-02] MEDS: INSULIN DETEMIR [LEVEMIR] 3ML CART SC SCH (21:20)
[2016-08-03] VITALS (10 sets, daily range): BP systolic 105–154; BP diastolic 52–66; PULSE 54–75; RESP 16–18
[2016-08-03] MEDS: ACCU-CHEK XX SCH (01:57)
[2016-08-03] MEDS: PANTOPRAZOLE (EC) 40 MG TAB PO SCH (05:44)
[2016-08-03] MEDS: INSULIN ASPART [NOVOLOG] 3 ML PEN SC SCH ×3 (08:00→18:05)
[2016-08-03 08:04] LABS: ADD SCAN DIFF NO
[2016-08-03 08:11] LABS: BASOPHILS % 0.7 % (0.0-2.0); EOSINOPHILS # 0.2 10^3/ul (0.0-0.5); EOSINOPHILS % 4.5 % (0.0-7.0); HEMATOCRIT 26.7 % (37.0-47.0); HEMOGLOBIN 8.2 g/dl (12.0-16.0); LYMPHOCYTES # 1.2 10^3/ul (0.8-2.9); LYMPHOCYTES % 21.5 % (15.0-51.0); MEAN CORPUSCULAR HEMOGLOBIN 33.1 pg (29.0-33.0); MEAN CORPUSCULAR HGB CONC 30.7 g/dl (32.0-37.0); MEAN CORPUSCULAR VOLUME 107.7 fl (82.0-101.0); MEAN PLATELET VOLUME 9.7 fl (7.4-10.4); MONOCYTE # 0.5 10^3/ul (0.3-0.9); MONOCYTES % 8.6 % (0.0-11.0); NEUTROPHIL # 3.4 10^3/ul (1.6-7.5); NEUTROPHILS % 64.3 % (39.0-77.0); PLATELET COUNT 250 10^3/UL (140-415); RED BLOOD COUNT 2.48 10^6/ul (4.20-5.40); RED CELL DISTRIBUTION WIDTH 12.7 % (11.5-14.5); WHITE BLOOD COUNT 5.4 10^3/ul (4.8-10.8)
[2016-08-03 08:41] LABS: POTASSIUM 5.4 mmol/L (3.5-5.1)
[2016-08-03 08:44] LABS: CREATININE 4.46 mg/dl (0.44-1.00)
[2016-08-03 08:45] LABS: CALCIUM 9.4 mg/dl (8.4-10.2)
[2016-08-03] MEDS: NIFEdipine (XL) 60 MG TAB PO SCH (09:54)
[2016-08-03] MEDS: NEOMYC/POLYMYX/HC 10 ML OTIC SUSP LEFT EAR SCH ×2 (09:54→12:52)
[2016-08-03] MEDS: LOSARTAN 50 MG TAB NGT SCH (09:54)
[2016-08-03] MEDS: CLOPIDOGREL 75 MG TAB PO SCH (09:55)
[2016-08-03] MEDS: ASPIRIN (EC) 325 MG TAB PO SCH (09:55)
[2016-08-03] MEDS ORDERED: NA POLYST SULFON 15 GM/60 ML BTL PO ONE (13:00)
[2016-08-03] MEDS: CLONIDINE 0.2 MG/24 HR PATCH TRANSDERM SCH (15:12)
--- NOTE | 2016-08-03 15:41 | CONS ---
Date/Time of Note Date/Time of Note DATE: 08/03/16 TIME: 15:39 Assessment/Plan Assessment/Plan Chief Complaint/Hosp Course 1. End-stage renal disease. 2. Hypertension. 3. Diabetes mellitus. 4. GERD. 5. Dyslipidemia. 6. Anemia. 7. Left ankle fracture. 8. The patient has a history of CAD. 9. Atherosclerotic heart disease. 10. The patient also has a history of PVD. 11. History of coronary artery bypass graft. 12. Patient had a Lexiscan done in the past. 13. Also angiogram done in the past. hyperkalemia Problems: Additional Assessment/Plan 1. Kidney function optimization 2. [place] was given Consultation Date/Type/Reason Admit Date/Time July 24, 2016 at 23:33 Initial Consult Date 07/26/2016 Type of Consultation: renal Reason for Consultation Dr Miller Exam/Review of Systems Vital Signs Vitals Vital Signs Date Time Temp Pulse Resp B/P Pulse Ox O2 Delivery O2 Flow Rate FiO2 08/03/16 15:38 98.0 51 16 105/52 98 Intake and Output 08/02/16 08/02/16 08/03/16 15:00 23:00 07:00 Intake Total 700 ml 850 ml 300 ml Output Total 2700 ml Balance -2000 ml 850 ml 300 ml Exam Constitutional: alert, oriented Neck: supple Respiratory: clear to auscultation Cardiovascular: regular rate and rhythm Musculoskeletal: joint tenderness, muscle weakness Results Result Diagram: 08/03/16 0635 08/03/16 0635 Results 24 hrs Laboratory Tests Test 08/02/16 16:55 08/02/16 17:12 08/02/16 21:17 08/03/16 01:51 White Blood Count 5.2 # Red Blood Count 2.46 L Hemoglobin 8.3 L Hematocrit 26.7 L Mean Corpuscular Volume 108.5 H Mean Corpuscular Hemoglobin 33.7 H Mean Corpuscular Hemoglobin Concent 31.1 L Red Cell Distribution Width 12.8 Platelet Count 239 Mean Platelet Volume 9.6 Neutrophils % 73.8 Lymphocytes % 14.4 L Monocytes % 7.3 Eosinophils % 3.3 Basophils % 0.8 Nucleated Red Blood Cells % 0.0 Neutrophils # 3.8 Lymphocytes # 0.8 Monocytes # 0.4 Eosinophils # 0.2 Basophils # 0.0 Nucleated Red Blood Cells # 0.0 Sodium Level 135 Potassium Level 4.3 Chloride Level 94 L Carbon Dioxide Level 28 Anion Gap 17 H Blood Urea Nitrogen 24 H Creatinine 3.37 H Glucose Level 172 Calcium Level 9.2 Bedside Glucose 171 237 H 123 Test 08/03/16 06:35 08/03/16 08:51 08/03/16 12:47 White Blood Count 5.4 Red Blood Count 2.48 L Hemoglobin 8.2 L Hematocrit 26.7 L Mean Corpuscular Volume 107.7 H Mean Corpuscular Hemoglobin 33.1 H Mean Corpuscular Hemoglobin Concent 30.7 L Red Cell Distribution Width 12.7 Platelet Count 250 Mean Platelet Volume 9.7 Neutrophils % 64.3 Lymphocytes % 21.5 Monocytes % 8.6 Eosinophils % 4.5 Basophils % 0.7 Nucleated Red Blood Cells % 0.0 Neutrophils # 3.4 Lymphocytes # 1.2 Monocytes # 0.5 Eosinophils # 0.2 Basophils # 0.0 Nucleated Red Blood Cells # 0.0 Sodium Level 137 Potassium Level 5.4 H Chloride Level 94 L Carbon Dioxide Level 30 Anion Gap 18 H Blood Urea Nitrogen 36 #H Creatinine 4.46 #H Glucose Level 101 # Calcium Level 9.4 Bedside Glucose 115 219 Medications Medications Current Medications Ondansetron HCl (Zofran Inj) 4 mg Q6H PRN IV NAUSEA AND/OR VOMITING; Start 07/25 at 15:00 Acetaminophen (Tylenol Tab) 650 mg Q6H PRN PO PAIN LEVEL 1-3 OR FEVER; Start at 15:00 Acetaminophen/ Hydrocodone Bitart ([place] (5/325)) 1 tab Q6H PRN PO MODERATE PAIN LEVEL 4-6 Last administered on 08/02/16 12:24; Admin Dose 1 TAB; Start 07/25/16 at 15:00 Docusate Sodium (Colace) 100 mg Q12H PRN PO CONSTIPATION Last administered on 09:21; Admin Dose 100 MG; Start 07/25/16 at 15:00 Magnesium Hydroxide (Milk Of Mag) 30 ml DAILY PRN PO CONSTIPATION Last administered on 08/02/16 23:39; Admin Dose 30 ML; Start 07/25/16 at 15:00 Zolpidem Tartrate (Ambien) 5 mg QHS PRN PO SLEEP; Start 07/25/16 at 15:00 Pantoprazole (Protonix Tab) 40 mg DAILY@06 PO Last administered on 08/03/16 05 :44; Admin Dose 40 MG; Start 07/26/16 at 06:00 Miscellaneous Information 1 ea NOTE XX ; Start 07/25/16 at 19:30 Glucose (Glutose) 15 gm Q15M PRN PO DECREASED GLUCOSE; Start 07/25/16 at 19:30 Glucose (Glutose) 22.5 gm Q15M PRN PO DECREASED GLUCOSE; Start 07/25/16 at 19:30 Dextrose (D50w Syringe) 25 ml Q15M PRN IV DECREASED GLUCOSE; Start 07/25/16 at 19:30 Dextrose (D50w Syringe) 50 ml Q15M PRN IV DECREASED GLUCOSE; Start 07/25/16 at 19:30 Glucagon (Glucagen) 1 mg Q15M PRN IM DECREASED GLUCOSE; Start 07/25/16 at 19:30 Glucose (Glutose) 15 gm Q15M PRN BUCCAL DECREASED GLUCOSE; Start 07/25/16 at 19: 30 Clonidine (Catapres) 0.1 mg Q4H PRN PO ELEVATED BLOOD PRESSURE Last administered on 07/28/16 12:31; Admin Dose 0.1 MG; Start 07/25/16 at 21:00 Aspirin (Ecotrin) 325 mg DAILY PO Last administered on 08/03/16 09:55; Admin Dose 325 MG; Start 07/26/16 at 09:00 Clopidogrel Bisulfate (plaVIX) 75 mg DAILY PO Last administered on 08/03/16 09 :55; Admin Dose 75 MG; Start 07/26/16 at 09:00 Atorvastatin Calcium (Lipitor) 20 mg HS PO Last administered on 08/02/16 21:18 ; Admin Dose 20 MG; Start 07/26/16 at 21:00 Losartan Potassium (Cozaar) 50 mg BID NGT Last administered on 08/03/16 09:54 ; Admin Dose 50 MG; Start 07/27/16 at 14:00 Clonidine HCl (Catapres-Tts 2 Patch) 1 patch Q7D TRANSDERM Last administered on 08/03/16 15:12; Admin Dose 1 PATCH; Start 07/27/16 at 15:00 Insulin Detemir (Levemir) 10 unit DAILY@20 SC Last administered on 08/02/16 21 :20; Admin Dose 10 UNIT; Start 07/27/16 at 20:00 Hydralazine HCl (Apresoline) 10 mg Q4H PRN IV SBP >170 Last administered on 07/29 00:08; Admin Dose 10 MG; Start 07/28/16 at 14:30 Nifedipine (Procardia Xl) 60 mg BID PO Last administered on 08/03/16 09:54; Admin Dose 60 MG; Start 07/28/16 at 21:00 Hydralazine HCl (Apresoline) 25 mg TID PO Last administered on 08/03/16 13:02 ; Admin Dose 25 MG; Start 07/28/16 at 21:00 Diagnostic Test (Pha) (Accu-Chek) 1 ea 02 XX Last administered on 08/03/16 01: 57; Admin Dose 1 EA; Start 07/29/16 at 02:00 Neomycin/ Polymyxin/ Hydrocortisone (Cortisporin Otic Susp) 4 drop TID LEFT EAR Last administered on 08/03/16 12:52; Admin Dose 4 DROP; Start 07/30/16 at 21: 00 HERON NATHAN August 03, 2016 15:41
--- NOTE | 2016-08-03 18:24 | CONS ---
Date/Time of Note Date/Time of Note DATE: 08/03/16 TIME: 18:22 Assessment/Plan Assessment/Plan Chief Complaint/Hosp Course Pt with h/o left Charcot, left foot ulceration, infection and hematoma. S/P Sx debridement and aspiration. In cast. Pain level 4/10, controlled with PO pain meds. Stable, will monitor. Problems: Consultation Date/Type/Reason Admit Date/Time July 24, 2016 at 23:33 Initial Consult Date Type of Consultation: renal Reason for Consultation Coverage for Dr. Campbell. Pt with h/o left Charcot, left foot ulceration, infection and hematoma. S/P Sx debridement and aspiration. In cast. 24 HR Interval Summary Free Text/Dictation Pt with h/o left Charcot, left foot ulceration, infection and hematoma. S/P Sx debridement and aspiration. In cast. Pain level 4/10, controlled with PO pain meds. Stable, will monitor. Exam/Review of Systems Vital Signs Vitals Vital Signs Date Time Temp Pulse Resp B/P Pulse Ox O2 Delivery O2 Flow Rate FiO2 08/03/16 16:16 54 08/03/16 15:38 98.0 16 105/52 98 Intake and Output 08/02/16 08/02/16 08/03/16 15:00 23:00 07:00 Intake Total 700 ml 850 ml 300 ml Output Total 2700 ml Balance -2000 ml 850 ml 300 ml Exam Extremities: other (In cast.) Results Result Diagram: 08/03/16 0635 08/03/16 0635 Results 24 hrs Laboratory Tests Test 08/02/16 21:17 08/03/16 01:51 08/03/16 06:35 08/03/16 08:51 Bedside Glucose 237 H 123 115 White Blood Count 5.4 Red Blood Count 2.48 L Hemoglobin 8.2 L Hematocrit 26.7 L Mean Corpuscular Volume 107.7 H Mean Corpuscular Hemoglobin 33.1 H Mean Corpuscular Hemoglobin Concent 30.7 L Red Cell Distribution Width 12.7 Platelet Count 250 Mean Platelet Volume 9.7 Neutrophils % 64.3 Lymphocytes % 21.5 Monocytes % 8.6 Eosinophils % 4.5 Basophils % 0.7 Nucleated Red Blood Cells % 0.0 Neutrophils # 3.4 Lymphocytes # 1.2 Monocytes # 0.5 Eosinophils # 0.2 Basophils # 0.0 Nucleated Red Blood Cells # 0.0 Sodium Level 137 Potassium Level 5.4 H Chloride Level 94 L Carbon Dioxide Level 30 Anion Gap 18 H Blood Urea Nitrogen 36 #H Creatinine 4.46 #H Glucose Level 101 # Calcium Level 9.4 Test 08/03/16 12:47 Bedside Glucose 219 Medications Medications Current Medications Ondansetron HCl (Zofran Inj) 4 mg Q6H PRN IV NAUSEA AND/OR VOMITING; Start 07/25 at 15:00 Acetaminophen (Tylenol Tab) 650 mg Q6H PRN PO PAIN LEVEL 1-3 OR FEVER; Start at 15:00 Acetaminophen/ Hydrocodone Bitart ([place] (5/325)) 1 tab Q6H PRN PO MODERATE PAIN LEVEL 4-6 Last administered on 08/02/16 12:24; Admin Dose 1 TAB; Start 07/25/16 at 15:00 Docusate Sodium (Colace) 100 mg Q12H PRN PO CONSTIPATION Last administered on 09:21; Admin Dose 100 MG; Start 07/25/16 at 15:00 Magnesium Hydroxide (Milk Of Mag) 30 ml DAILY PRN PO CONSTIPATION Last administered on 08/02/16 23:39; Admin Dose 30 ML; Start 07/25/16 at 15:00 Zolpidem Tartrate (Ambien) 5 mg QHS PRN PO SLEEP; Start 07/25/16 at 15:00 Pantoprazole (Protonix Tab) 40 mg DAILY@06 PO Last administered on 08/03/16 05 :44; Admin Dose 40 MG; Start 07/26/16 at 06:00 Miscellaneous Information 1 ea NOTE XX ; Start 07/25/16 at 19:30 Glucose (Glutose) 15 gm Q15M PRN PO DECREASED GLUCOSE; Start 07/25/16 at 19:30 Glucose (Glutose) 22.5 gm Q15M PRN PO DECREASED GLUCOSE; Start 07/25/16 at 19:30 Dextrose (D50w Syringe) 25 ml Q15M PRN IV DECREASED GLUCOSE; Start 07/25/16 at 19:30 Dextrose (D50w Syringe) 50 ml Q15M PRN IV DECREASED GLUCOSE; Start 07/25/16 at 19:30 Glucagon (Glucagen) 1 mg Q15M PRN IM DECREASED GLUCOSE; Start 07/25/16 at 19:30 Glucose (Glutose) 15 gm Q15M PRN BUCCAL DECREASED GLUCOSE; Start 07/25/16 at 19: 30 Clonidine (Catapres) 0.1 mg Q4H PRN PO ELEVATED BLOOD PRESSURE Last administered on 07/28/16 12:31; Admin Dose 0.1 MG; Start 07/25/16 at 21:00 Aspirin (Ecotrin) 325 mg DAILY PO Last administered on 08/03/16 09:55; Admin Dose 325 MG; Start 07/26/16 at 09:00 Clopidogrel Bisulfate (plaVIX) 75 mg DAILY PO Last administered on 08/03/16 09 :55; Admin Dose 75 MG; Start 07/26/16 at 09:00 Atorvastatin Calcium (Lipitor) 20 mg HS PO Last administered on 08/02/16 21:18 ; Admin Dose 20 MG; Start 07/26/16 at 21:00 Losartan Potassium (Cozaar) 50 mg BID NGT Last administered on 08/03/16 09:54 ; Admin Dose 50 MG; Start 07/27/16 at 14:00 Clonidine HCl (Catapres-Tts 2 Patch) 1 patch Q7D TRANSDERM Last administered on 08/03/16 15:12; Admin Dose 1 PATCH; Start 07/27/16 at 15:00 Insulin Detemir (Levemir) 10 unit DAILY@20 SC Last administered on 08/02/16 21 :20; Admin Dose 10 UNIT; Start 07/27/16 at 20:00 Hydralazine HCl (Apresoline) 10 mg Q4H PRN IV SBP >170 Last administered on 07/29 00:08; Admin Dose 10 MG; Start 07/28/16 at 14:30 Nifedipine (Procardia Xl) 60 mg BID PO Last administered on 08/03/16 09:54; Admin Dose 60 MG; Start 07/28/16 at 21:00 Hydralazine HCl (Apresoline) 25 mg TID PO Last administered on 08/03/16 13:02 ; Admin Dose 25 MG; Start 07/28/16 at 21:00 Diagnostic Test (Pha) (Accu-Chek) 1 ea 02 XX Last administered on 08/03/16 01: 57; Admin Dose 1 EA; Start 07/29/16 at 02:00 Neomycin/ Polymyxin/ Hydrocortisone (Cortisporin Otic Susp) 4 drop TID LEFT EAR Last administered on 08/03/16t 12:52; Admin Dose 4 DROP; Start 07/30/16 at 21: 00 JERRY BOYLE DPM August 03, 2016 18:24
== END 2016-08-03 21:00 | DRG 570 ==
LOC: E/R 18:33 → MS4 23:33
PROVIDERS: ADMIT Internal Medicine; ATTEND Internal Medicine
PROC: 0JBR0ZZ Excision of Left Foot Subcutaneous Tissue and Fascia, Open Approach (ICD-10-PCS; principal; 2016-07-26)
PROC: 0Y9L3ZX Drainage of Left Ankle Region, Percutaneous Approach, Diagnostic (ICD-10-PCS; 2016-07-26)
DX: L03.116 Cellulitis of left lower limb (principal); N18.6 End stage renal disease; E11.22 Type 2 diabetes mellitus with diabetic chronic kidney disease; I12.0 Hypertensive chronic kidney disease with stage 5 chronic kidney disease or end stage renal disease; L97.321 Non-pressure chronic ulcer of left ankle limited to breakdown of skin; B95.61 Methicillin susceptible Staphylococcus aureus infection as the cause of diseases classified elsewhere; E11.610 Type 2 diabetes mellitus with diabetic neuropathic arthropathy; E11.65 Type 2 diabetes mellitus with hyperglycemia; Z99.2 Dependence on renal dialysis; I25.10 Atherosclerotic heart disease of native coronary artery without angina pectoris; E11.42 Type 2 diabetes mellitus with diabetic polyneuropathy; E78.5 Hyperlipidemia, unspecified; E11.621 Type 2 diabetes mellitus with foot ulcer; D64.9 Anemia, unspecified; E11.319 Type 2 diabetes mellitus with unspecified diabetic retinopathy without macular edema; E11.51 Type 2 diabetes mellitus with diabetic peripheral angiopathy without gangrene; Z79.4 Long term (current) use of insulin; Z98.1 Arthrodesis status; Z95.1 Presence of aortocoronary bypass graft; Z87.891 Personal history of nicotine dependence
CPT/HCPCS: 36415; 73620; 80048; 80053; 80202; 82962; 83036; 83735; 84100; 84436; 84443; 84479; 85025; 85651; 86850; 86870; 86900; 86901; 87070; 90935; 96365; 96366; 96367; 96375; 97161; J0360; J0690; J1644; J1815; J2405; J2543; J3370; P9047

== ENCOUNTER 2016-08-30 12:11 | Emergency (ER) | payer MEDICARE, BC ==
[~2016-08-30] VITALS: Ht 152.4 cm; Wt 62.5 kg
[~2016-08-30 12:11] MED LIST changes: -SERT50TA6 PO
[2016-08-30] MEDS ORDERED: ONDANSETRON 4 MG INJ IV STA (12:16)
[2016-08-30 12:19] VITALS: Ht 152.4 cm; Wt 62.5 kg
[2016-08-30] MEDS ORDERED: LABETALOL HCL 20MG INJ IV ONE (12:30)
[2016-08-30 12:55] LABS: ADD SCAN DIFF NO
[2016-08-30 12:59] LABS: BASOPHILS % 0.6 % (0.0-2.0); EOSINOPHILS # 0.2 10^3/ul (0.0-0.5); EOSINOPHILS % 3.6 % (0.0-7.0); HEMATOCRIT 36.5 % (37.0-47.0); HEMOGLOBIN 11.6 g/dl (12.0-16.0); LYMPHOCYTES # 0.8 10^3/ul (0.8-2.9); LYMPHOCYTES % 15.2 % (15.0-51.0); MEAN CORPUSCULAR HEMOGLOBIN 33.7 pg (29.0-33.0); MEAN CORPUSCULAR HGB CONC 31.8 g/dl (32.0-37.0); MEAN CORPUSCULAR VOLUME 106.1 fl (82.0-101.0); MEAN PLATELET VOLUME 8.9 fl (7.4-10.4); MONOCYTE # 0.3 10^3/ul (0.3-0.9); MONOCYTES % 5.6 % (0.0-11.0); NEUTROPHIL # 3.8 10^3/ul (1.6-7.5); NEUTROPHILS % 74.8 % (39.0-77.0); PLATELET COUNT 227 10^3/UL (140-415); RED BLOOD COUNT 3.44 10^6/ul (4.20-5.40); RED CELL DISTRIBUTION WIDTH 14.1 % (11.5-14.5)
[2016-08-30] MEDS ORDERED: LIDOCAINE 1% (MPF) 5 ML VIAL SC ONE (13:00)
[2016-08-30 13:12] VITALS: TEMP 96.4
[2016-08-30] MEDS ORDERED: HYDROmorphONE 1 MG/ML SYG IV STA ×2 (13:14→14:48)
[2016-08-30 13:22] LABS: INR 1.1; PROTIME 14.2 Sec (12.2-14.2); PT RATIO 1.1
--- NOTE | 2016-08-30 13:22 | RADRPT ---
PROCEDURE: CHEST 1VW CLINICAL INDICATION: Shortness of breath TECHNIQUE: Single frontal view of the chest was obtained COMPARISON: 03/04/2014 FINDINGS: Interval removal of right neck central venous catheter and placement of left neck tunnel dialysis ca theter. Stable sternotomy wires The cardiac size is mildly enlarged, stable. Aortic vascular calcifications are demonstrated. There is worsening mild to moderate interstitial edema and pulmonary vascular congestion. Trace left effusion with associated atelectasis. Mild degenerative changes of the visualized osseous structures are visualized. IMPRESSION: 1. Removal of right tunnel venous catheter with placement of left tunnel dialysis catheter. 2. Cardiomegaly with worsening mild to moderate pulmonary vascular congestion and interstitial edema . Trace left effusion with associated atelectasis. RPTAT:PP .Fazal Villatoro MD, Date Time Electronically viewed and signed by .Fazal Villatoro MD, MD on 08/30/2016 13:21 .V/
[2016-08-30 13:23] LABS: PARTIAL THROMBOPLASTIN TIME 31.7 Sec (25.0-35.0)
[2016-08-30] MEDS ORDERED: NOVMIX SC (13:25)
[2016-08-30] MEDS ORDERED: SEVE2.4P3 PO (13:27)
[2016-08-30] MEDS ORDERED: SERT50TA PO (13:27)
[2016-08-30 13:28] LABS: CALCIUM 9.6 mg/dl (8.4-10.2); CREATININE 6.09 mg/dl (0.44-1.00)
[2016-08-30] MEDS ORDERED: ZOLP10TA5 PO (13:28)
[2016-08-30] MEDS ORDERED: NITR0.4T6 SL (13:28)
[2016-08-30] MEDS ORDERED: ISOS60TA PO (13:28)
[2016-08-30] MEDS ORDERED: BIMA2.5D BOTH EYES (13:29)
[2016-08-30] MEDS ORDERED: CNC30T PO (13:29)
[2016-08-30] MEDS ORDERED: OLOP2.5D5 OP (13:29)
--- NOTE | 2016-08-30 13:33 | RADRPT ---
PROCEDURE: CT Brain without contrast. CLINICAL INDICATION: Headaches. ; stroke TECHNIQUE: A CT of the brain was performed on multidetector high-resolution CT scanner utilizing a xial sections from the skull base through the vertex without contrast. One or more of the following dose reduction techniques were used: Automated exposure control, Adjustment of the mA and/or kV acc ording to patient size, and/or use of iterative reconstruction technique. DOSE: CTDI = 44 mGy and the DLP = 630 mGy-cm. COMPARISON: Head CT 11/20/2013 FINDINGS: Hyperdense appearance of the basal cisterns most notably at the suprasellar cistern and perimesencep halic cistern. Mild interval increase in size of the ventricles when compared to prior. No evidence of midline shift. Patchy hypoattenuation of the cerebral white matter is compatible with chronic mi crovascular ischemic changes. Chronic right basal ganglia lacunar infarct. Vascular calcifications. Mild volume loss. No significant opacification of the visualized paranasal sinuses or mastoids. IMPRESSION: Subarachnoid hemorrhage in the basal cisterns most notably at the suprasellar cistern and perimesenc ephalic cistern on the left. Consider CT angiogram of the brain to evaluate for possible underlying aneurysm if warranted. Mild interval increase in size of the ventricles when compared to prior. Recommend attention on foll ow-up to exclude developing hydrocephalus. Chronic microvascular disease and intracranial atherosclerosis. Chronic right basal ganglia lacunar infarct. A call report was made to Dr. MANNING at 08/30/2016 1:31:42 PM. RPTAT: AA .Nader Spivey MD, MD Date Time Electronically viewed and signed by .Nader Spivey MD, on 08/30/2016 13:33 .T/
[2016-08-30 13:39] LABS: TROPONIN-I 0.014 ng/ml (0.00-0.12)
[2016-08-30] MEDS ORDERED: niCARdipine-D5W 0.1MG/ML DRIP 200 ML IV STA (13:52)
[2016-08-30] MEDS ORDERED: SUCCINYLCHOLINE CHLORIDE 100 MG/5 ML SYG IV STA (13:58)
[2016-08-30] MEDS ORDERED: ETOMIDATE 20 MG INJ IV STA (13:58)
[2016-08-30] MEDS ORDERED: PROPOFOL 100 ML IV STA (14:02)
[2016-08-30] MEDS ORDERED: MIDAZOLAM (DRIP) 50 mg/50 mL 50 ML IV STA (15:03)
[2016-08-30 15:08] LABS: AADO2 Arterial 198.1 mmHg (7.0-24.0); Allen Test ACCEPTAB; Arterial Base Excess -2.7 mmol/L (-3.0-3); Arterial COHb 0.7 % (0.0-3.0); Arterial Fraction of Oxyhgb 98.9 % (93.0-99.0); Arterial HCO3 22.8 mmol/L (22.0-26.0); Arterial MetHb 0.1 % (0.0-1.5); Arterial Total Hemglobin 11.5 g/dl (12.0-18.0); MODE ROOM AIR
--- NOTE | 2016-08-30 15:22 | RADRPT ---
PROCEDURE: XR Chest. CLINICAL INDICATION: Assess intubated 61-year-old female with history of chest pain. TECHNIQUE: Single frontal view of the chest was obtained. COMPARISON: Chest x-ray 03/04/2014. FINDINGS: The soft tissues are normal. There are degenerative osteophytes in the thoracic spine. An endotrac heal tube is identified in place with its tip estimated 3 cm superior to the chase. A dialysis cat heter enters from a left subclavian approach with its tip in the superior vena cava. No pneumothora x is identified. An NG tube is noted distal to the GE junction. A median sternotomy was performed. The the heart is enlarged. The cardiomediastinal silhouette and hilar structures are normal. The pulmonary vasculature is increased. There are vascular calcifications in the aortic arch. There are perihilar infiltrates extending toward the base of the right lung. There is consolidative infiltra te and atelectasis silhouetting the left diaphragm in the left lower lobe. The left costophrenic an gle is obscured. The right costophrenic angle is unremarkable. IMPRESSION: 1. Cardiomegaly with congestive heart failure and interstitial pulmonary edema. 2. The endotracheal tube rests 3 cm superior to the chaes. 3. The the NG tube is positioned distal to the GE junction. 4. Consolidative infiltrates in the lingula and left lower lobe with possible associated left pleur al effusion. 5. Status post median sternotomy. 6. Dialysis catheter with its tip in the superior vena cava. 7. Clip in the left upper abdomen from prior abdominal surgery. RPTAT:AAJJ Physician Chetna Date Time Electronically viewed and signed by Physician Chetna on 08/30/2016 15:22 PALLAVI/
[2016-08-30] MEDS ORDERED: MIDAZOLAM 1 MG/ML 5 ML INJ IV ONE (15:30)
--- NOTE | 2016-08-30 15:32 | ERA ---
ER Documentation Chief Complaint Date/Time DATE: 08/30/16 TIME: 15:29 Chief Complaint ALOC HPI Patient is a 61-year-old female with hypertension, diabetes, and dialysis who presents with altered mental status. Please note the history and physical exam is limited secondary to the patient's mental status. The patient went to dialysis but was altered so they did not dialyze. She was brought in by ambulance. She usually is at a nursing facility. Her primary doctor is Dr. Miller. ROS All systems reviewed and are negative except as per history of present illness. Medications Home Meds Reported Medications Olopatadine HCl (Pazeo) 2.5 Ml Drops, 1 DROP OP QHS, BOTTLE 08/30/16 Bimatoprost* (Lumigan*) 0.01%-2.5 Ml Opht Drops, 1 DROP BOTH EYES HS, EA 08/30/16 Cinacalcet* (Sensipar*) 30 Mg Tab, 30 MG PO DAILY, TAB 08/30/16 Isosorbide Mononitrate* (Isosorbide Mononitrate*) 60 Mg Tab.er.24h, 60 MG PO DAILY, TAB 08/30/16 Nitroglycerin* (Nitroglycerin* SL) 0.4 Mg Tab.subl, 0.4 MG SL Q5MIN Y for CHEST PAIN, BOTTLE 08/30/16 Zolpidem Tartrate* (Zolpidem Tartrate*) 10 Mg Tablet, 10 MG PO QHS Y for INSOMNIA, #30 TAB 08/30/16 Sertraline Hcl* (Zoloft*) 50 Mg Tablet, 50 MG PO DAILY, #30 TAB 08/30/16 Sevelamer Carbonate* (Renvela*) 2.4 Gm Powd.pack, 2.4 GM PO WITH MEALS, PACKET 08/30/16 Insulin Aspart (Novolog Mix (70/30)) 100 Units/Ml Soln, 6 UNITS SC WITH BREAKFAST, VIAL 08/30/16 Omeprazole* (Omeprazole*) 40 Mg Capsule.dr, 40 MG PO DAILY, #30 CAP 04/24/16 Nifedipine* (Nifedipine ER*) 30 Mg Tablet.sa, 30 MG PO BID, TAB.SA 06/10/15 Clopidogrel Bisulfate (Clopidogrel) 75 Mg Tablet, 75 MG PO DAILY 09/21/12 Aspirin* (Aspirin*) 325 Mg Tablet, 325 MG PO DAILY 06/12/11 Simvastatin* (Zocor*) 40 Mg Tablet, 40 MG PO QHS 10/04/10 Allergies Allergies: Coded Allergies: morphine (Verified Allergy, Intermediate, 08/30/16) PMhx/Soc History of Surgery: Yes (CABG) Anesthesia Reaction: Yes Hx Neurological Disorder: No Hx Respiratory Disorders: No Hx Cardiac Disorders: Yes (cabg) Hx Psychiatric Problems: No (Anxiety, depression) Hx Miscellaneous Medical Probl: Yes (DM, ESRD, CABG, CVA, L foot arthrodesis) Hx Alcohol Use: No Hx Substance Use: No Hx Tobacco Use: No Smoking Status: Unknown if ever smoked FmHx Unable to obtain Physical Exam Vitals Vital Signs Date Time Temp Pulse Resp B/P Pulse Ox O2 Delivery O2 Flow Rate FiO2 08/30/16 15:21 65 14 153/51 100 Mechanical Ventilator 08/30/16 15:14 100 40 08/30/16 15:05 69 17 131/57 100 Mechanical Ventilator 08/30/16 14:55 65 14 119/85 100 Mechanical Ventilator 08/30/16 14:45 77 17 135/80 100 Mechanical Ventilator 08/30/16 14:37 65 14 171/60 100 Mechanical Ventilator 08/30/16 14:28 83 14 100 100 08/30/16 14:28 80 14 199/67 100 Mechanical Ventilator 08/30/16 13:50 68 19 189/76 100 Non Rebreather 10.0 08/30/16 13:46 Non Rebreather 10 08/30/16 13:30 68 22 175/97 94 Non Rebreather 10.0 08/30/16 13:12 96.4 73 33 190/67 98 Non Rebreather 10.0 08/30/16 12:54 89 30 217/88 100 Non Rebreather 10.0 08/30/16 12:49 90 26 160/83 100 Non Rebreather 10.0 Physical Exam Const: Altered Head: Atraumatic Eyes: Normal Conjunctiva ENT: Normal External Ears, Nose and Mouth. Neck: Full range of motion..~ No meningismus. Resp: Tachypnea Cardio: Regular rate and rhythm, no murmurs Abd: Soft, non tender, non distended. Normal bowel sounds Skin: No petechiae or rashes Back: No midline or flank tenderness Ext: No cyanosis, or edema Neur: Awake but waxing and waning mental status Result Diagram: 08/30/16 1245 08/30/16 1245 Results 24 hrs Laboratory Tests Test 08/30/16 12:45 08/30/16 13:15 08/30/16 13:54 08/30/16 13:58 White Blood Count 5.010^3/ul Red Blood Count 3.4410^6/ul Hemoglobin 11.6g/dl Hematocrit 36.5% Mean Corpuscular Volume 106.1fl Mean Corpuscular Hemoglobin 33.7pg Mean Corpuscular Hemoglobin Concent 31.8g/dl Red Cell Distribution Width 14.1% Platelet Count 36750^3/UL Mean Platelet Volume 8.9fl Neutrophils % 74.8% Lymphocytes % 15.2% Monocytes % 5.6% Eosinophils % 3.6% Basophils % 0.6% Nucleated Red Blood Cells % 0.0/100WBC Neutrophils # 3.810^3/ul Lymphocytes # 0.810^3/ul Monocytes # 0.310^3/ul Eosinophils # 0.210^3/ul Basophils # 0.010^3/ul Nucleated Red Blood Cells # 0.010^3/ul Prothrombin Time 14.2Sec Prothrombin Time Ratio 1.1 INR International Normalized Ratio 1.10 Activated Partial Thromboplast Time 31.7Sec Sodium Level 138mmol/L Potassium Level 4.0mmol/L Chloride Level 97mmol/L Carbon Dioxide Level 24mmol/L Anion Gap 21 Blood Urea Nitrogen 45mg/dl Creatinine 6.09mg/dl Glucose Level 162mg/dl Calcium Level 9.6mg/dl Troponin I 0.014ng/ml Lactic Acid Level 0.8mmol/L Bedside Glucose 165mg/dL Blood Gas Specimen Source Blood arterial Arterial Blood Date Drawn 08/30/2016 3:00:49 PM Arterial Blood pH (Temp corrected) 7.351 Arterial Blood pCO2 (Temp correct) 42.1mmhg Arterial Blood pO2 (Temp corrected) 472.8mmHG Arterial Blood HCO3 22.8mmol/L Arterial Blood Base Excess -2.7mmol/L Arterial Blood Oxygen Saturation 99.7mmHG Ash Test ACCEPTAB Arterial Blood Gas Puncture Site Right Radial Arterial Blood Carboxyhemoglobin 0.7% Arterial Blood Methemoglobin 0.1% Blood Gas A-a O2 Differential 198.1mmHg Oxyhemoglobin Percent 98.9% Total Hemoglobin 11.5g/dl Blood Gas Temperature 37.0C Blood Gas Respiration Rate 14.0 Blood Gas Actual Respiration Rate 20 Blood Gas Modality ROOM AIR FiO2 100.0% Blood Gas Tidal Volume 450.0mL Blood Gas Low PEEP Setting 5.0cmH2O Blood Gas Notified Whom Blood Gas Notified Time 08/30/2016 3:08:34 PM Current Medications Medications (Trade) Dose Ordered Sig/Maricruz Route PRN Reason Start Time Stop Time Status Last Admin Dose Admin Ondansetron HCl (Zofran Inj) 4 mg ONCE STAT IV 08/30/16 12:16 08/30/16 12:17 DC 08/30/16 13:08 Labetalol HCl (Labetalol) 20 mg ONCE ONCE IV 08/30/16 12:30 08/30/16 12:31 DC 08/30/16 13:02 Lidocaine (Xylocaine 1% (Mpf)) 5 ml ONCE ONCE SC 08/30/16 13:00 08/30/16 13:01 DC Hydromorphone HCl 1 mg 1 mg ONCE STAT IV 08/30/16 13:14 08/30/16 13:15 DC 08/30/16 13:23 Nicardipine HCl (Cardene Iv) 200 ml @ 50 mls/hr ONCE STAT IV 08/30/16 13:52 08/30/16 17:51 08/30/16 14:10 Succinylcholine Chloride (Anectine Syringe) 150 mg ONCE STAT IV 08/30/16 13:58 08/30/16 13:59 DC 08/30/16 14:19 Etomidate 20 mg 20 mg ONCE STAT IV 08/30/16 13:58 08/30/16 13:59 DC 08/30/16 14:19 Propofol (Diprivan) 100 ml @ 1.875 mls/ hr ONCE STAT IV 08/30/16 14:02 08/30/16 15:04 DC 08/30/16 14:59 Hydromorphone HCl (Dilaudid) 1 mg ONCE STAT IV 08/30/16 14:48 08/30/16 14:49 DC 08/30/16 14:54 Midazolam HCl 5 mg 5 mg ONCE ONCE IV 08/30/16 15:30 08/30/16 15:31 08/30/16 15:19 Midazolam HCl (Versed) 50 ml @ 3 mls/hr ONCE STAT IV 08/30/16 15:03 08/31/16 07:42 08/30/16 15:17 Procedures/MDM EKG read by me: Rate/Rhythm: Regular rate and rhythm at a normal rate Intervals: Normal Impression: No evidence of ischemia or arrhythmia Chest X-ray 1V Interpreted by me: Soft Tissue: No acute abnormalities Bones: No acute abnormalities Mediastinum/Cardiac Silhouette/Lungs: Pulmonary edema CT brain shows subarachnoid hemorrhage per radiology. Endotracheal Intubation by me: Pre assessment performed. Pre-oxygenation performed with 100% oxygen RSI: Performed w/o complication or hypoxic events. Medications as ordered. Blade: MAC 4 Glidescope ET Tube: 7.5 cm Depth: 21 cm at the lip Intubation confirmed by colorimetric CO2, equal breath sounds, quiet over the stomach. Chest X-ray 1V Interpreted by me: 3 cm above the chase ET tube. Normal soft tissue, No pneumothorax. Central Line Placement by me: Patient consented, sterilely draped, full prep, gown, glove, mask, time out performed. Anesthesia: 1% lidocaine locally Location: Right femoral Device: Multiple lumen Technique: Seldinger technique. Secured with suture. Results: Venous return from all ports with easy saline flush. No complications. Guide wire retrieved and disposed of. ED Ultrasound: Central line placed by me using concurrent ultrasound guidance. Real time image archived in the medical record confirms vascular anatomy. Patient is a 61-year-old female who presents with a subarachnoid hemorrhage. The patient needed intubation for airway protection. I placed a central line because she would require Versed drip and nicardipine drip. I spoke with Dr. Henderson who is the neurosurgeon excellence consultant. He will transfer the patient to [facility] for higher level of care as we do not currently have the ability to manage subarachnoid hemorrhage at [facility]. The patient is on Plavix and platelets were ordered. The patient was placed on a nicardipine drip because of elevated blood pressure of over 200 systolic. The goal blood pressure is less than 140 systolic. The patient will be transferred via critical care ambulance. At this point I doubt meningitis or intracranial mass. Critical Care: Time: 55 minutes excluding all billable procedures. Treatments/Evaluations: Close monitoring and treatment of unstable vital signs, cardiorespiratory, and neurologic status, while maintaining tight balance of fluid, respiratory, and cardiac interventions. Departure Diagnosis: Primary Impression: Altered level of consciousness Additional Impressions: Subarachnoid hemorrhage Hypertensive emergency Anemia Qualified Code: D64.9 - Anemia, unspecified type Chronic renal failure Qualified Code: N18.9 - Chronic renal failure, unspecified stage Condition: Critical JAMIN MANNING MD Aug 30, 2016 15:32
[2016-08-30 15:46] VITALS: BP 129/56; PULSE 80; RESP 14
== END 2016-08-30 16:00 | disposition short-term general hospital (02) ==
LOC: E/R 12:11
DX: R40.4 Transient alteration of awareness (principal); R40.2122 Coma scale, eyes open, to pain, at arrival to emergency department; I60.9 Nontraumatic subarachnoid hemorrhage, unspecified; I16.1 Hypertensive emergency; D64.9 Anemia, unspecified; R40.2352 Coma scale, best motor response, localizes pain, at arrival to emergency department; R40.2242 Coma scale, best verbal response, confused conversation, at arrival to emergency department; I12.0 Hypertensive chronic kidney disease with stage 5 chronic kidney disease or end stage renal disease; N18.6 End stage renal disease; Z79.4 Long term (current) use of insulin; Z98.61 Coronary angioplasty status; Z79.82 Long term (current) use of aspirin; Z79.01 Long term (current) use of anticoagulants; Z99.2 Dependence on renal dialysis
CPT/HCPCS: 31500; 36556; 36600; 51702; 70450; 71010; 80048; 82803; 82962; 83036; 83605; 84484; 85025; 85610; 85730; 86850; 86870; 86900; 86901; 87040; 94002; J1170; J2250; J2405; J7999; 36415; 76937; 96374; 96375; 96376

== ENCOUNTER 2016-10-09 12:54 | Emergency (ER) | payer MEDICARE, BC ==
[~2016-10-09] VITALS: Wt 72.7 kg
[~2016-10-09 12:54] MED LIST changes: +BIMA2.5D BOTH EYES; +CNC30T PO; +ISOS60TA PO; +NITR0.4T6 SL; +OLOP2.5D5 OP; +SERT50TA PO; +SEVE2.4P3 PO; +ZOLP10TA5 PO
[2016-10-09] MEDS ORDERED: SOD CHLORIDE 0.9% 1,000 ML IV STA (13:29)
[2016-10-09] MEDS ORDERED: ONDANSETRON 4 MG INJ IV STA (13:29)
[2016-10-09] MEDS ORDERED: FAMOTIDINE 20 MG INJ IV STA (13:29)
[2016-10-09 13:58] LABS: ADD SCAN DIFF NO
[2016-10-09 14:02] LABS: BASOPHILS % 0.4 % (0.0-2.0); EOSINOPHILS # 0.1 10^3/ul (0.0-0.5); EOSINOPHILS % 1.2 % (0.0-7.0); HEMATOCRIT 30.9 % (37.0-47.0); HEMOGLOBIN 10.4 g/dl (12.0-16.0); LYMPHOCYTES # 0.7 10^3/ul (0.8-2.9); MEAN CORPUSCULAR HEMOGLOBIN 33.3 pg (29.0-33.0); MEAN CORPUSCULAR HGB CONC 33.7 g/dl (32.0-37.0); MEAN PLATELET VOLUME 8.9 fl (7.4-10.4); MONOCYTE # 0.6 10^3/ul (0.3-0.9); MONOCYTES % 7.8 % (0.0-11.0); NEUTROPHILS % 81.3 % (39.0-77.0); PLATELET COUNT 209 10^3/UL (140-415); RED BLOOD COUNT 3.12 10^6/ul (4.20-5.40); RED CELL DISTRIBUTION WIDTH 16.2 % (11.5-14.5); WHITE BLOOD COUNT 7.4 10^3/ul (4.8-10.8)
[2016-10-09 14:20] LABS: ALBUMIN 3.9 g/dl (3.3-4.9); ALBUMIN/GLOBULIN RATIO 1.08; CALCIUM 9.5 mg/dl (8.4-10.2); CREATININE 6.02 mg/dl (0.44-1.00); POTASSIUM 4.3 mmol/L (3.5-5.1); TOTAL PROTEIN 7.5 g/dl (6.1-8.1)
--- NOTE | 2016-10-09 15:19 | RADRPT ---
PROCEDURE: CT Abdomen and Pelvis without contrast. CLINICAL INDICATION: Abdominal pain TECHNIQUE: CT scan of the abdomen and pelvis was performed on a multidetector high-resolution CT s canner without intravenous contrast. Coronal and sagittal reformatted images were obtained from the axial source images. Images were reviewed on a high-resolution PACS workstation. The total exam CTD I equals 11mGy and the total exam DLP equals 709mGy-cm. One or more of the following dose reduction techniques were used: Automated exposure control, Adjustment of the mA and/or kV according to patien t size, and/or use of iterative reconstruction technique. COMPARISON: None. FINDINGS: Evaluation of the solid organs is limited given the lack of intravenous contrast administration. Partially imaged bilateral anterior rib fractures. Displaced right anterior third and fourth rib fra ctures noted. Sternotomy wires. Coronary arterial and aortic atherosclerosis. Partially loculated left pleural e ffusion. Small to moderate right pleural effusion. Bibasilar atelectasis/infiltrates. Scattered splenic and hepatic calcifications. No pancreatic ductal dilatation. The adrenals are un remarkable. Trace pericholecystic fluid. No hydronephrosis. No renal or ureteral stone. Extensive mesenteric vascular calcifications. No bowel obstruction. Normal-caliber appendix. No significant retroperitoneal lymphadenopathy or evidence of pneumoperitoneum. Aortoiliac atherosclerosis. IMPRESSION: No evidence of high-grade bowel obstruction. Normal-caliber appendix. Coronary arterial and aortic atherosclerosis. Extensive mesenteric vascular calcifications. Scattered splenic and hepatic calcifications may be due to prior granulomatous disease. Partially loculated left and small to moderate right pleural effusions. Bibasilar atelectasis/infiltrates. Trace pericholecystic fluid. Partially imaged bilateral anterior rib fractures. Displaced right anterior third and fourth rib fra ctures noted. RPTAT: AA .Nader Spivey MD, Date Time Electronically viewed and signed by .Nader Spivey MD, MD on 10/09/2016 15:18 .T/
[2016-10-09] MEDS ORDERED: PANT40TA4 PO (15:26)
[2016-10-09] MEDS ORDERED: CLON1PAT2 TD (15:29)
[2016-10-09] MEDS ORDERED: TRAZ100T15 PO (15:29)
[2016-10-09] MEDS ORDERED: NEPH PO (15:30)
[2016-10-09] MEDS ORDERED: DOCU-144 PO (15:31)
[2016-10-09] MEDS ORDERED: TRAM-40 PO (15:31)
[2016-10-09] MEDS ORDERED: ERGO500037 PO (15:32)
[2016-10-09] MEDS ORDERED: MAGN400O4 PO (15:33)
[2016-10-09] MEDS ORDERED: CLON0.2T5 PO (15:34)
[2016-10-09] MEDS ORDERED: HYDR-3671 PO (15:35)
[2016-10-09] MEDS ORDERED: NUT.237L54 PO (15:35)
--- NOTE | 2016-10-09 16:36 | ERD ---
ER Documentation Chief Complaint Date/Time DATE: 10/09/16 TIME: 16:34 Chief Complaint NAUSEA AND VOMITING COFFEE GROUND EMESIS TODAY. MILD ABD PAIN. HPI This is a 61-year-old female presents to the emergency room for evaluation of nausea, and vomiting and one episode of coffee-ground emesis while at dialysis today. The patient states that she is having some mild abdominal pain. The patient came to the ER for evaluation. The patient localizes the abdominal pain to the midportion of abdomen this comes as an achy pain. The patient denies any radiation of the pain. ROS All systems reviewed and are negative except as per history of present illness. Medications Home Meds Reported Medications Nut.tx.impaired Renal Fxn,Soy (NEPRO CARB STEADY) 237 Ml Liquid, 237 ML PO TID Y for NEEDED 10/09/16 Hydralazine Hcl* (Hydralazine Hcl*) 25 Mg Tab, 50 MG PO TID, #90 TAB 10/09/16 Clonidine Hcl* (Clonidine Hcl*) 0.2 Mg Tablet, 0.3 MG PO TID, TAB HOLD FOR SBP<120 10/09/16 Magnesium Hydroxide* (Milk Of Magnesia*) 400 Mg/5 Ml Oral.susp, 30 ML PO Q24H for CONSTIPATION, ML 10/09/16 Ergocalciferol (Vitamin D2) (VITAMIN D2) 50,000 Unit Capsule, 87447 UNIT PO Q FRIDAY, CAP 10/09/16 Docusate Sodium* (Colace*) 100 Mg Capsule, 100 MG PO DAILY, #30 CAP 10/09/16 Tramadol Hcl* (Ultram*) 50 Mg Tablet, 100 MG PO TID Y for PAIN, TAB 10/09/16 Multivit/Ca Carb/B Cmplx/Fa* (Connie-Zenia*) 1 Tab Tab, 1 TAB PO DAILY, TAB 10/09/16 Trazodone Hcl* (Trazodone Hcl*) 100 Mg Tablet, 100 MG PO DAILY, #30 TAB 10/09/16 Clonidine Patch (CLONIDINE PATCH) 0.2 Mg/24 Hr Patch, 1 PATCH.WK TD Q7D, #4 PATCH.WK 10/09/16 Pantoprazole* (Pantoprazole*) 40 Mg Tablet.dr, 40 MG PO AC BREAKFAST, TAB 10/09/16 Allergies Allergies: Coded Allergies: acetaminophen (Unverified Allergy, Unknown, HIVES-FROM [place], 10/09/16) morphine (Unverified Allergy, Unknown, HEART STOPS-PER DAUGHTER FROM [place], 10/09/16) PMhx/Soc History of Surgery: Yes Anesthesia Reaction: No Hx Neurological Disorder: Yes (HX SUBDURAL HEMATOMA WITH S/P STERNOTOMY) Hx Respiratory Disorders: No Hx Cardiac Disorders: Yes (HTN) Hx Psychiatric Problems: No Hx Miscellaneous Medical Probl: Yes (dm, ESRD ON HEMODIALYSIS) Hx Alcohol Use: No Hx Substance Use: No Hx Tobacco Use: No Smoking Status: Never smoker Physical Exam Vitals Vital Signs Date Time Temp Pulse Resp B/P Pulse Ox O2 Delivery O2 Flow Rate FiO2 10/09/16 16:17 79 16 133/56 96 Nasal Cannula 2.0 10/09/16 12:56 98.3 72 20 106/53 99 Physical Exam INITIAL VITAL SIGNS: Reviewed by me GENERAL: The patient is well developed and appropriate for usual state of health in no apparent distress HEENT: Pupils equal, round, and reactive to light. EOMI. There is no scleral icterus. NECK: C-spine is soft and supple, there is no meningismus. There is no cervical lymphadenopathy. LUNGS: Clear to auscultation bilaterally. There are no rales, wheezes or rhonchi. HEART: Regular rate and rhythm, no murmurs, clicks, rubs or gallops. ABDOMEN: Soft, non-tender, non-distended. There are bowel sounds in all four quadrants. No rebound or guarding. EXTREMITIES: There is no peripheral cyanosis or edema. No focal swelling or erythema. NEUROLOGICAL: The patient moves all four extremities with 5/5 strength. Cranial nerves II - XII are intact. Normal gait. Alert and oriented SKIN: There is no apparent rash or petechiae. HEME/LYMPHATIC: There is no evidence of excessive bruising or lymphedema. PSYCHIATRIC: The patient does not appear anxious or depressed. Result Diagram: 10/09/16 1355 10/09/16 1355 Results 24 hrs Laboratory Tests Test 10/09/16 13:55 White Blood Count 7.410^3/ul Red Blood Count 3.1210^6/ul Hemoglobin 10.4g/dl Hematocrit 30.9% Mean Corpuscular Volume 99.0fl Mean Corpuscular Hemoglobin 33.3pg Mean Corpuscular Hemoglobin Concent 33.7g/dl Red Cell Distribution Width 16.2% Platelet Count 40099^3/UL Mean Platelet Volume 8.9fl Neutrophils % 81.3% Lymphocytes % 9.0% Monocytes % 7.8% Eosinophils % 1.2% Basophils % 0.4% Nucleated Red Blood Cells % 0.0/100WBC Neutrophils # 6.010^3/ul Lymphocytes # 0.710^3/ul Monocytes # 0.610^3/ul Eosinophils # 0.110^3/ul Basophils # 0.010^3/ul Nucleated Red Blood Cells # 0.010^3/ul Sodium Level 135mmol/L Potassium Level 4.3mmol/L Chloride Level 88mmol/L Carbon Dioxide Level 30mmol/L Anion Gap 21 Blood Urea Nitrogen 35mg/dl Creatinine 6.02mg/dl Glucose Level 218mg/dl Calcium Level 9.5mg/dl Total Bilirubin 0.0mg/dl Direct Bilirubin 0.00mg/dl Indirect Bilirubin 0.0mg/dl Aspartate Amino Transf (AST/SGOT) 14IU/L Alanine Aminotransferase (ALT/SGPT) 25IU/L Alkaline Phosphatase 118IU/L Total Protein 7.5g/dl Albumin 3.9g/dl Globulin 3.60g/dl Albumin/Globulin Ratio 1.08 Lipase 117U/L Current Medications Medications (Trade) Dose Ordered Sig/Maricruz Route PRN Reason Start Time Stop Time Status Last Admin Dose Admin Sodium Chloride (NS) 1,000 ml @ 1,000 mls/hr Q1H STAT IV 10/09/16 13:29 10/09/16 14:28 DC 10/09/16 15:26 Ondansetron HCl (Zofran Inj) 4 mg ONCE STAT IV 10/09/16 13:29 10/09/16 13:31 DC 10/09/16 15:26 Famotidine (Pepcid Iv) 20 mg ONCE STAT IV 10/09/16 13:29 10/09/16 13:31 DC 10/09/16 15:26 Procedures/MDM CT abdomen pelvis without: No evidence of high-grade bowel obstruction. Normal-caliber appendix. Coronary arterial and aortic atherosclerosis. Extensive mesenteric vascular calcifications. Scattered splenic and hepatic calcifications may be due to prior granulomatous disease. Partially loculated left and small to moderate right pleural effusions. Bibasilar atelectasis/infiltrates. Trace pericholecystic fluid. Partially imaged bilateral anterior rib fractures. Displaced right anterior third and fourth rib fractures noted. This 62-year-old female presents to the emergency room for evaluation of hematemesis. CT of the abdomen was obtained which did show anterior third and fourth rib fractures. This patient denies any trauma and is hemodynamically stable at this time. The patient did undergo dialysis today. I advised her that she will need to follow-up with her primary care physician for reevaluation and possible reimaging of the ribs. She verbalized understanding and will be discharged at this time Departure Diagnosis: Primary Impression: Acute vomiting Additional Impression: Rib fractures Condition: Stable SAMANTHA LUZ DO Oct 09, 2016 16:36
[2016-10-09 17:20] VITALS: BP 156/87; PULSE 72; RESP 16; TEMP 98.7
== END 2016-10-09 17:23 | disposition home or self-care (01) ==
LOC: MERGE 12:54 → E/R 12:54
DX: R11.10 Vomiting, unspecified (principal); S22.41XA Multiple fractures of ribs, right side, initial encounter for closed fracture; I12.0 Hypertensive chronic kidney disease with stage 5 chronic kidney disease or end stage renal disease; N18.6 End stage renal disease; E11.9 Type 2 diabetes mellitus without complications; X58.XXXA Exposure to other specified factors, initial encounter; Y92.9 Unspecified place or not applicable; Z99.2 Dependence on renal dialysis
CPT/HCPCS: 36415; 74176; 80053; 83690; 85025; 96374; 96375; 99285; J2405; J7030

== ENCOUNTER 2017-04-30 18:27 | Emergency (ER) | END 2017-04-30 21:00 | disposition home or self-care (01) ==

== ENCOUNTER 2017-06-09 17:45 | Emergency (ER) | END 2017-06-10 02:20 | disposition home or self-care (01) ==

== ENCOUNTER 2017-10-25 10:50 | Emergency (ER) | END 2017-10-25 12:18 | disposition home or self-care (01) ==

== ENCOUNTER 2017-12-15 19:13 | Observation (INO) | END 2017-12-17 18:09 | disposition home or self-care (01) ==